=== PATIENT | female | born 1965 | race Caucasian/White ===

== ENCOUNTER → 2017-12-15 09:34 | Outpatient (POV) | payer BC, SELFPAY ==
[2017-12-15 09:42] VITALS: BP 127/69; PULSE 79; RESP 20; O2SAT 99; BMI 43.0
--- NOTE | 2017-12-15 10:02 | HMH.PAINSOAP ---
[facility] Pain Management SOAP Note Subjective:: This patient is a pleasant 52-year-old female who presents today for medication refills. Patient is currently on Lyrica 150 mg twice daily. She states the medication helps her 40%. Patient has overall pain secondary to fibromyalgia. She has extreme point tenderness in her neck and bilateral shoulders. Patient states the medication does help her with her activities of daily living. Patient denies any side effects to the medication. Patient does have kidney problems however she is being monitored closely by a physician and currently has no restrictions. Patient's Marcello #[id number] reviewed and appropriate. ROS General: no recent weight change, no fever, no sleep disturbances Respiratory: no cough, no shortness of air, no recurring pulmonary infections Cardiovascular/Peripheral Vascular: No chest pain, No palpitations, no edema, no shortness of breath. Gastrointestinal: no incontinence, normal bowel movements reported Genitourinary: no incontinence Musculoskeletal: Myofascial pain generalized Psychiatric: normal mood/ affect, Neurological: [denies weakness in extremities], [denies balance issues] Objective:: Physical Exam General: Alert and oriented x3, no acute distress, pleasant and cooperative, [on room air] Lungs: Resps E/U, Symmetrical chest expansion, Eyes: PERRL Musculoskeletal: Flexion and extension of cervical spine somewhat guarded secondary to pain, deep tendon reflexes normal, strength in upper and lower extremities [5/5], normal gait noted, point tenderness over cervical paraspinous and bilateral trapezius muscles Neurological: speech clear, photo finish photographer equal, no gross sensory deficits Assessment:: Degenerative disc disease of cervical spine, cervical radiculopathy, fibromyalgia Plan:: Since the patient is doing so well on her Lyrica regimen we will increase her Lyrica to 150 mg 1 p.o. 3 times daily. I believe that this will be very effective in treating the rest of her pain. Patient is getting some relief 40% from her medication currently. Patient is not having any side effects. We will follow-up with her in 3 months she has been instructed to call the office if there are any changes in her current condition. Patient's Marcello has been reviewed and appropriate. This note was dictated using voice recognition software may contain errors or omissions
--- NOTE | 2017-12-15 10:05 | P.CONS_ITS ---
[facility] Pain Management SOAP Note Subjective:: This patient is a pleasant 52-year-old female who presents today for medication refills. Patient is currently on Lyrica 150 mg twice daily. She states the medication helps her 40%. Patient has overall pain secondary to fibromyalgia. She has extreme point tenderness in her neck and bilateral shoulders. Patient states the medication does help her with her activities of daily living. Patient denies any side effects to the medication. Patient does have kidney problems however she is being monitored closely by a physician and currently has no restrictions. Patient's Marcello #[id number] reviewed and appropriate. ROS General: no recent weight change, no fever, no sleep disturbances Respiratory: no cough, no shortness of air, no recurring pulmonary infections Cardiovascular/Peripheral Vascular: No chest pain, No palpitations, no edema, no shortness of breath. Gastrointestinal: no incontinence, normal bowel movements reported Genitourinary: no incontinence Musculoskeletal: Myofascial pain generalized Psychiatric: normal mood/ affect, Neurological: [denies weakness in extremities], [denies balance issues] Objective:: Physical Exam General: Alert and oriented x3, no acute distress, pleasant and cooperative, [ on room air] Lungs: Resps E/U, Symmetrical chest expansion, Eyes: PERRL Musculoskeletal: Flexion and extension of cervical spine somewhat guarded secondary to pain, deep tendon reflexes normal, strength in upper and lower extremities [5/5], normal gait noted, point tenderness over cervical paraspinous and bilateral trapezius muscles Neurological: speech clear, extractive metallurgist equal, no gross sensory deficits Assessment:: Degenerative disc disease of cervical spine, cervical radiculopathy, fibromyalgia Plan:: Since the patient is doing so well on her Lyrica regimen we will increase her Lyrica to 150 mg 1 p.o. 3 times daily. I believe that this will be very effective in treating the rest of her pain. Patient is getting some relief 40% from her medication currently. Patient is not having any side effects. We will follow-up with her in 3 months she has been instructed to call the office if there are any changes in her current condition. Patient's Marcello has been reviewed and appropriate. This note was dictated using voice recognition software may contain errors or omissions
--- NOTE | 2017-12-15 16:48 | PC.PHONENOTE ---
called in Rx for Lyrica 150mg TID with 2 refills to [facility] in [place]
== END ==
PROVIDERS: Family Provider Nurse Practitioner Family; PCP Nurse Practitioner Family; Visit Provider Clinical Nurse Specialist Family Health
DX: M79.7 Fibromyalgia (principal); M54.12 Radiculopathy, cervical region
CPT/HCPCS: 99212

== ENCOUNTER → 2018-03-16 08:55 | Outpatient (POV) | payer BC, SELFPAY ==
[2018-03-16 09:12] VITALS: BP 140/75; PULSE 72; RESP 18; O2SAT 98; BMI 40.7
--- NOTE | 2018-03-16 09:30 | HMH.PAINSOAP ---
[facility] Pain Management SOAP Note Subjective:: Patient is a pleasant 52-year-old white female who presents today for medication refills. Patient is currently on Lyrica 150 mg 1 p.o. 3 times daily. Patient states that decreases her pain 50-60%. Patient states that she is not having any side effects to the medication. Patient has overall pain secondary to fibromyalgia. Patient states the medication does help with her activities of daily living. Patient does have kidney function issues in the past however they are being monitored and she is currently doing well. Patient recently has started treatment for depression and anxiety. Patient has also been diagnosed with Sjogren's syndrome. I discussed with the patient that when she find somebody to treat this that they will need to provide notes to our office. ROS General: no recent weight change, no fever, no sleep disturbances Respiratory: no cough, no shortness of air, no recurring pulmonary infections Cardiovascular/Peripheral Vascular: No chest pain, No palpitations, no edema, no shortness of breath. Gastrointestinal: no incontinence, normal bowel movements reported Genitourinary: no incontinence Musculoskeletal: Myofascial pain Psychiatric: normal mood/ affect Neurological: [denies weakness in extremities], [denies balance issues] Objective:: Physical Exam General: Alert and oriented x3, no acute distress, pleasant and cooperative, [on room air] Lungs: Resps E/U, Symmetrical chest expansion, Eyes: PERRL Musculoskeletal: Flexion and extension of cervical spine somewhat guarded secondary to pain, deep tendon reflexes normal, strength in upper and lower extremities [5/5], normal gait noted, point tenderness over cervical paraspinous and bilateral trapezius muscles Neurological: speech clear, spinneret cleaner equal, no gross sensory deficits Assessment:: Degenerative disc disease of the cervical spine, cervical radiculopathy, fibromyalgia Plan:: We will refill the patient's Lyrica 150 mg 1 p.o. 3 times daily. Patient is going to get us notes from her treating physician for her Sjogren's diagnosis. I will follow-up with this patient in 3 months unless she needs us prior to this appointment. Dr. Mandujano has reviewed this chart and agrees with this plan of care. Patient's MARISA #[id number] reviewed and appropriate. This note was dictated using voice recognition software and may contain errors or omissions
--- NOTE | 2018-03-16 09:33 | P.CONS_ITS ---
[facility] Pain Management SOAP Note Subjective:: Patient is a pleasant 52-year-old white female who presents today for medication refills. Patient is currently on Lyrica 150 mg 1 p.o. 3 times daily. Patient states that decreases her pain 50-60%. Patient states that she is not having any side effects to the medication. Patient has overall pain secondary to fibromyalgia. Patient states the medication does help with her activities of daily living. Patient does have kidney function issues in the past however they are being monitored and she is currently doing well. Patient recently has started treatment for depression and anxiety. Patient has also been diagnosed with Sjogren's syndrome. I discussed with the patient that when she find somebody to treat this that they will need to provide notes to our office. ROS General: no recent weight change, no fever, no sleep disturbances Respiratory: no cough, no shortness of air, no recurring pulmonary infections Cardiovascular/Peripheral Vascular: No chest pain, No palpitations, no edema, no shortness of breath. Gastrointestinal: no incontinence, normal bowel movements reported Genitourinary: no incontinence Musculoskeletal: Myofascial pain Psychiatric: normal mood/ affect Neurological: [denies weakness in extremities], [denies balance issues] Objective:: Physical Exam General: Alert and oriented x3, no acute distress, pleasant and cooperative, [ on room air] Lungs: Resps E/U, Symmetrical chest expansion, Eyes: PERRL Musculoskeletal: Flexion and extension of cervical spine somewhat guarded secondary to pain, deep tendon reflexes normal, strength in upper and lower extremities [5/5], normal gait noted, point tenderness over cervical paraspinous and bilateral trapezius muscles Neurological: speech clear, resaw machine operator equal, no gross sensory deficits Assessment:: Degenerative disc disease of the cervical spine, cervical radiculopathy, fibromyalgia Plan:: We will refill the patient's Lyrica 150 mg 1 p.o. 3 times daily. Patient is going to get us notes from her treating physician for her Sjogren's diagnosis. I will follow-up with this patient in 3 months unless she needs us prior to this appointment. Dr. Mandujano has reviewed this chart and agrees with this plan of care. Patient's MARISA #[id number] reviewed and appropriate. This note was dictated using voice recognition software and may contain errors or omissions
== END ==
PROVIDERS: Family Provider Nurse Practitioner Family; PCP Nurse Practitioner Family; Visit Provider Clinical Nurse Specialist Family Health
DX: M54.12 Radiculopathy, cervical region (principal); M79.7 Fibromyalgia
CPT/HCPCS: 99212

== ENCOUNTER → 2018-10-27 11:11 | Outpatient (POV) | payer BC, SELFPAY ==
[2018-10-27 12:17] VITALS: BP 118/48; PULSE 71; RESP 18; O2SAT 98; BMI 42.5
--- NOTE | 2018-10-27 12:32 | HMH.PAINSOAP ---
[facility] Pain Management SOAP Note Subjective:: Patient is a pleasant 53-year-old white female who presents today for medication refills. Patient currently on Lyrica 150 mg 1 p.o. 3 times daily. She states that this decreases her pain up to 60%. Patient's MARISA reviewed and appropriate patient is continuing with her physician treating her Sjogren's syndrome. Patient denies side effects from medication. Patient rates her pain a 6 out of 10 today. ROS General: no recent weight change, no fever, no sleep disturbances Respiratory: no cough, no shortness of air, no recurring pulmonary infections Cardiovascular/Peripheral Vascular: No chest pain, No palpitations, no edema, no shortness of breath. Gastrointestinal: no incontinence, normal bowel movements reported Genitourinary: no incontinence Musculoskeletal: Myofascial pain Psychiatric: normal mood/ affect, [denies depression], [denies anxiety] Neurological: [denies weakness in extremities], [denies balance issues] Objective:: Physical Exam General: Alert and oriented x3, no acute distress, pleasant and cooperative, [on room air] Lungs: Resps E/U, Symmetrical chest expansion, Eyes: PERRL Musculoskeletal: Flexion and extension of cervical spine somewhat guarded secondary to pain, deep tendon reflexes normal, strength in upper and lower extremities [5/5], normal gait noted, point tenderness over cervical paraspinous and bilateral trapezius muscles Neurological: speech clear, carbon capture power plant manager equal, no gross sensory deficits Assessment:: Myofascial pain syndrome Plan:: We will refill the patient's Lyrica 150 mg 1 p.o. 3 times daily. We will see the patient back in 3 or 4 months and reassess her symptoms as needed. Patient has been instructed to call the office if she has any issues prior to her next appointment. Dr. Mandujano has reviewed this note and agrees with this plan of care. This note was dictated using voice recognition software and may contain errors or omissions
--- NOTE | 2018-10-27 12:37 | P.CONS_ITS ---
[facility] Pain Management SOAP Note Subjective:: Patient is a pleasant 53-year-old white female who presents today for medication refills. Patient currently on Lyrica 150 mg 1 p.o. 3 times daily. She states that this decreases her pain up to 60%. Patient's MARISA reviewed and appropriate patient is continuing with her physician treating her Sjogren's syndrome. Patient denies side effects from medication. Patient rates her pain a 6 out of 10 today. ROS General: no recent weight change, no fever, no sleep disturbances Respiratory: no cough, no shortness of air, no recurring pulmonary infections Cardiovascular/Peripheral Vascular: No chest pain, No palpitations, no edema, no shortness of breath. Gastrointestinal: no incontinence, normal bowel movements reported Genitourinary: no incontinence Musculoskeletal: Myofascial pain Psychiatric: normal mood/ affect, [denies depression], [denies anxiety] Neurological: [denies weakness in extremities], [denies balance issues] Objective:: Physical Exam General: Alert and oriented x3, no acute distress, pleasant and cooperative, [on room air] Lungs: Resps E/U, Symmetrical chest expansion, Eyes: PERRL Musculoskeletal: Flexion and extension of cervical spine somewhat guarded secondary to pain, deep tendon reflexes normal, strength in upper and lower extremities [5/5], normal gait noted, point tenderness over cervical paraspinous and bilateral trapezius muscles Neurological: speech clear, cosmetic account coordinator equal, no gross sensory deficits Assessment:: Myofascial pain syndrome Plan:: We will refill the patient's Lyrica 150 mg 1 p.o. 3 times daily. We will see the patient back in 3 or 4 months and reassess her symptoms as needed. Patient has been instructed to call the office if she has any issues prior to her next appointment. Dr. Mandujano has reviewed this note and agrees with this plan of care. This note was dictated using voice recognition software and may contain errors or omissions
== END ==
PROVIDERS: PCP Nurse Practitioner Family; Visit Provider Clinical Nurse Specialist Family Health
DX: M79.18 Myalgia, other site (principal)
CPT/HCPCS: 99213

== ENCOUNTER → 2018-12-24 08:09 | Outpatient (POV) | payer BC, SELFPAY | PROVIDERS: Visit Provider Dentist | DX: Z00.00 Encounter for general adult medical examination without abnormal findings (principal) ==

== ENCOUNTER → 2019-02-22 09:16 | Outpatient (POV) | payer BC, SELFPAY ==
[2019-02-22 09:35] VITALS: BP 148/71; PULSE 71; RESP 18; O2SAT 98; BMI 42.5
--- NOTE | 2019-02-22 09:38 | P.CONS_ITS ---
[facility] Pain Management SOAP Note Subjective:: Patient is a pleasant 53-year-old white female who presents today for medication refills. She is currently on Lyrica 150 mg 1 p.o. 3 times daily. She denies side effects for this. She does well on this rating her pain today a 4 out of 10. She states it helps up to 70%. [facility] #[id number] reviewed and appropriate. Patient would like to continue to follow-up every couple months. ROS General: no recent weight change, no fever, no sleep disturbances Respiratory: no cough, no shortness of air, no recurring pulmonary infections Cardiovascular/Peripheral Vascular: No chest pain, No palpitations, no edema, no shortness of breath. Gastrointestinal: no incontinence, normal bowel movements reported Genitourinary: no incontinence Musculoskeletal: Myofascial pain Psychiatric: normal mood/ affect Neurological: [denies weakness in extremities], [denies balance issues] Objective:: Physical Exam General: Alert and oriented x3, no acute distress, pleasant and cooperative, [on room air] Lungs: Resps E/U, Symmetrical chest expansion, Eyes: PERRL Musculoskeletal: Flexion and extension of cervical spine somewhat guarded secondary to pain, deep tendon reflexes normal, strength in upper and lower extremities [5/5], normal gait noted, point tenderness over cervical paraspinous and bilateral trapezius muscles Neurological: speech clear, centrifugal casting machine tender equal, no gross sensory deficits Assessment:: Myofascial pain syndrome, fibromyalgia Plan:: We will refill the patient's Lyrica 150 mg 1 p.o. 3 times daily we will see the patient back in 3 months reassess her symptoms as needed she is been instructed to call the office if she has any issues prior to her next appointment. Dr. Mandujano has reviewed this note and agrees with this plan of care. This note was dictated using voice recognition software and may contain errors or omissions
== END ==
PROVIDERS: PCP Nurse Practitioner Family; Visit Provider Clinical Nurse Specialist Family Health
DX: M79.18 Myalgia, other site (principal); M79.7 Fibromyalgia
CPT/HCPCS: 99212

== ENCOUNTER 2021-03-07 15:00 | Outpatient (RCR) | payer MEDICARE, OTHER, SELFPAY | END 2021-04-02 16:00 | disposition home or self-care (01) | LOC: PT.CARL 15:00 | PROVIDERS: PCP Nurse Practitioner Family; Visit Provider Physician Assistant | DX: M47.812 Spondylosis without myelopathy or radiculopathy, cervical region; M54.12 Radiculopathy, cervical region | CPT/HCPCS: 97012; 97110; 97140; 97163 ==

== ENCOUNTER → 2022-08-13 08:30 | Outpatient (CLI) | payer MEDICARE, SELFPAY ==
--- NOTE | 2022-08-13 08:45 | ECG_ITS ---
APPROVED REPORT Exam: Resting ECG HR:65 bpm ECG Measurements Heart Rate 65 AXES FL 127 P 42 QRSd 90 QRS 87 QT 390 T 76 QTc 402 Conclusion SINUS RHYTHM LOW QRS VOLTAGE IN PRECORDIAL LEADS [QRS DEFLECTION < 1.0 mV IN CHEST LEADS] BORDERLINE ECG UNCONFIRMED REPORT Electronically signed by : Jesus Tello MD 08/13/2022 21:10:15
--- NOTE | 2022-08-13 09:18 | XR_ITS ---
FINAL REPORT CLINICAL HISTORY: OBESITY, pre op , high blood pressure, non smoker FINDINGS: Two views of the chest were obtained. The heart size and pulmonary vascularity are within normal limits. The mediastinum is normal. No acute pulmonary abnormality is identified. There is no pneumothorax. The bony thorax is intact. There are [id number] degenerative changes of the thoracic spine IMPRESSION: No active cardiopulmonary disease. Reviewed, Interpreted and Dictated by Pantera Ortiz III, MD Transcribed by Felicitas Weinberg Authenticated and [facility]
[2022-08-13 09:30] LABS: Basophils % 0.5 % (0.1-2.0); Eosinophils # 0.2 K/mm3 (0.0-0.4); Eosinophils % 2.7 % (0.1-12.0); Hematocrit 40.5 % (37.0-47.0); Hemoglobin 13.5 g/dL (12.2-16.2); Lymphocytes # 1.3 K/mm3 (0.7-4.5); Lymphocytes % 23.1 % (10-50); Mean Corpuscular HGB Conc 33.4 g/dL (31.8-35.4); Mean Corpuscular Hemoglobin 34.7 pg (27.0-31.2); Mean Corpuscular Volume 103.9 fl (81-99); Monocytes # 0.4 K/mm3 (0.1-1.0); Monocytes % 6.3 % (1.7-9.3); Neutrophils # 3.8 K/mm3 (1.8-7.8); Neutrophils % 67.4 % (37.0-80.0); Platelet Count 311 K/mm3 (142-424); White Blood Count 5.7 K/mm3 (4.8-10.8)
[2022-08-13 09:58] LABS: Alanine Aminotransferase 52 U/L (12-78); Albumin Level 4.2 g/dl (3.5-5.0); Albumin/Globulin Ratio 1.6 (1.1-1.8); Alkaline Phosphatase 112 U/L (38-126); Anion Gap 15.2 mEq/L (5-15); Aspartate Amino Transferase 45 U/L (14-36); Bilirubin,Total 0.7 mg/dl (0.2-1.3); Blood Urea Nitrogen 15 mg/dl (7-17); Calcium 8.8 mg/dl (8.4-10.2); Carbon Dioxide 29 mmol/L (22.0-30.0); Chloride 100 mmol/L (98-107); Cholesterol 130 mg/dl (140-200); Estimated Glomerular Filt Rate 64 ml/min (>60); GFR (African American) 78 ML/MIN (>60); Globulin 2.6 g/dL (1.3-3.2); Glucose 131 mg/dl (74-100); HDL Cholesterol 64 mg/dl (40-60); Potassium 4.2 mmoL/L (3.5-5.1); Sodium 140 mmol/L (136-145); Total Protein,Serum 6.8 g/dl (6.3-8.2); Triglycerides 93 mg/dl (30-150); VLDL Cholesterol 19 mg/dL (0-40)
[2022-08-13 10:08] LABS: Total Iron Binding Capacity 288 ug/dL (265-497)
[2022-08-13 10:13] LABS: Intact Parathyroid Hormone 64.5 pg/mL (7.5-53.5)
[2022-08-13 10:15] LABS: Direct LDL Cholesterol 50.71 mg/dL (100-129)
[2022-08-13 10:23] LABS: 25-OH Vitamin D, Total 63.9 ng/mL (30-100)
[2022-08-13 10:31] LABS: Thyroid Stimulating Hormone 1.26 uIU/mL (0.465-4.68)
[2022-08-13 11:19] LABS: Hemoglobin A1C 6.1 % (4.0-6.0)
[2022-08-13 11:20] LABS: Folate 4.27 ng/mL
[2022-08-13 11:32] LABS: Iron 93 ug/dL (37-170)
[2022-08-13 12:08] LABS: Ferritin 37.6 ng/ml (11.1-264)
[2022-08-15 11:21] LABS: H. pylori Stool Ag, EIA Negative (Negative)
[2022-08-16 23:08] LABS: Vitamin B1 152.1 nmol/L (66.5-200.0)
[2022-08-18 23:07] LABS: Methylmalonic Acid 468 nmol/L (0-378)
[2022-08-21 16:13] LABS: Vitamin E Alpha Tocopherol 7.1 mg/L (7.0-25.1); Vitamin E Gamma Tocopherol 1.6 mg/L (0.5-5.5)
[2022-08-23 12:38] LABS: Vitamin A 41.7 ug/dL (20.1-62.0)
== END ==
PROVIDERS: PCP Family Medicine; Visit Provider Physician Assistant
DX: E66.9 Obesity, unspecified (principal); E11.9 Type 2 diabetes mellitus without complications; Z79.84 Long term (current) use of oral hypoglycemic drugs; Z68.42 Body mass index [BMI] 45.0-49.9, adult
CPT/HCPCS: 36415; 71046; 80053; 80061; 82131; 82306; 82728; 82746; 83036; 83540; 83550; 83970; 84425; 84443; 84446; 84590; 85025; 87338; 93005

== ENCOUNTER → 2022-08-28 10:15 | Outpatient (CLI) | payer MEDICARE, SELFPAY ==
[2022-08-28 19:44] LABS: Calcium 9.3 mg/dl (8.4-10.2)
[2022-08-28 19:57] LABS: Intact Parathyroid Hormone 86.3 pg/mL (7.5-53.5)
[2022-08-30 18:09] LABS: Calcium, Ionized 5.4 mg/dL (4.5-5.6)
== END ==
PROVIDERS: PCP Family Medicine; Visit Provider Family Medicine
DX: E34.9 Endocrine disorder, unspecified (principal)
CPT/HCPCS: 82310; 82330; 83970

== ENCOUNTER → 2022-11-22 10:12 | Outpatient (CLI) | payer MEDICARE, SELFPAY ==
[2022-11-22 11:33] LABS: Basophils % 0.1 % (0.1-2.0); Eosinophils # 0.2 K/mm3 (0.0-0.4); Eosinophils % 5.5 % (0.1-12.0); Hematocrit 40.8 % (37.0-47.0); Hemoglobin 13.7 g/dL (12.2-16.2); Lymphocytes % 23.8 % (10-50); Mean Corpuscular HGB Conc 33.6 g/dL (31.8-35.4); Mean Corpuscular Hemoglobin 35.1 pg (27.0-31.2); Mean Corpuscular Volume 104.3 fl (81-99); Monocytes # 0.3 K/mm3 (0.1-1.0); Monocytes % 7.5 % (1.7-9.3); Neutrophils # 2.5 K/mm3 (1.8-7.8); Neutrophils % 63.1 % (37.0-80.0); Platelet Count 220 K/mm3 (142-424); Red Blood Count 3.91 M/mm3 (4.20-5.40); Red Cell Distribution Width 13.8 % (11.5-17.5)
[2022-11-22 12:17] LABS: 25-OH Vitamin D, Total 79.1 ng/mL (30-100)
[2022-11-22 12:25] LABS: Alanine Aminotransferase 38 U/L (12-78); Albumin Level 3.7 g/dl (3.5-5.0); Albumin/Globulin Ratio 1.3 (1.1-1.8); Alkaline Phosphatase 114 U/L (38-126); Anion Gap 9.4 mEq/L (5-15); Aspartate Amino Transferase 56 U/L (14-36); Bilirubin,Total 0.7 mg/dl (0.2-1.3); Blood Urea Nitrogen 13 mg/dl (7-17); Calcium 8.6 mg/dl (8.4-10.2); Carbon Dioxide 29 mmol/L (22.0-30.0); Chloride 107 mmol/L (98-107); Chol/HDL Ratio 1.8 (1-3.5); Cholesterol 79 mg/dl (140-200); Estimated Glomerular Filt Rate 57 ml/min (>60); GFR (African American) 69 ML/MIN (>60); Globulin 2.9 g/dL (1.3-3.2); Glucose 101 mg/dl (74-100); HDL Cholesterol 44 mg/dl (40-60); Potassium 3.4 mmoL/L (3.5-5.1); Sodium 142 mmol/L (136-145); Total Protein,Serum 6.6 g/dl (6.3-8.2); Triglycerides 75 mg/dl (30-150); VLDL Cholesterol 15 mg/dL (0-40)
[2022-11-22 12:36] LABS: Total Iron Binding Capacity 274 ug/dL (265-497)
[2022-11-22 12:38] LABS: Hemoglobin A1C 5.3 % (4.0-6.0)
[2022-11-22 13:07] LABS: Direct LDL Cholesterol < 30.00 mg/dL (100-129)
[2022-11-22 13:33] LABS: Folate 5.07 ng/mL
[2022-11-22 17:41] LABS: Iron 69 ug/dL (37-170)
[2022-11-25 02:14] LABS: Vitamin B1 124.9 nmol/L (66.5-200.0)
[2022-11-27 23:40] LABS: Vitamin E Alpha Tocopherol 5.2 mg/L (7.0-25.1); Vitamin E Gamma Tocopherol 1.1 mg/L (0.5-5.5)
[2022-11-28 06:08] LABS: Methylmalonic Acid 337 nmol/L (0-378)
[2022-11-30 08:38] LABS: Vitamin A 20.7 ug/dL (20.1-62.0)
== END ==
PROVIDERS: PCP Family Medicine; Visit Provider Nurse Practitioner Family
DX: Z90.3 Acquired absence of stomach [part of] (principal); E66.01 Morbid (severe) obesity due to excess calories; E11.9 Type 2 diabetes mellitus without complications; Z68.41 Body mass index [BMI] 40.0-44.9, adult
CPT/HCPCS: 36415; 80053; 80061; 82131; 82306; 82728; 82746; 83036; 83540; 83550; 84425; 84446; 84590; 85025

== ENCOUNTER 2023-01-14 12:15 | Emergency (ER) | payer MEDICARE, SELFPAY ==
[2023-01-14 12:15] VITALS: BP 129/75; PULSE 64; RESP 16; TEMP 36.7; O2SAT 96; BMI 39.6
--- NOTE | 2023-01-14 12:34 | PC.NURSE ---
JOSHUA JANG at
--- NOTE | 2023-01-14 12:35 | CT_ITS ---
FINAL REPORT TECHNIQUE: Postcontrast axial images through the abdomen and pelvis were performed. This study was performed with techniques to keep radiation doses as low as reasonably achievable, (ALARA). Individualized dose reduction techniques using automated exposure control or adjustment of mA and/or kV according to the patient's size were employed. CLINICAL HISTORY: abdominal pain FINDINGS: Abdomen: The lung bases are clear. There is postoperative change from prior gastric sleeve. There is moderate fatty infiltration of the liver. The gallbladder is absent. The spleen is unremarkable. The adrenals are normal. The pancreas is unremarkable. The kidneys enhance appropriately. The aorta is normal in caliber. No free fluid or adenopathy is identified. No findings for mechanical bowel obstruction are identified. Pelvis: The appendix is normal. The urinary bladder is unremarkable. There is a small amount of pelvic free fluid demonstrating 8 Hounsfield units of mean attenuation value. This is greater than expected for a female patient of this age. IMPRESSION: Small amount on a pelvic free fluid of unclear etiology. No evidence of appendicitis. Prior gastric sleeve. Reviewed, Interpreted and Dictated by Ezekiel Valdez MD Transcribed by Justo Chris Authenticated and [facility]
--- NOTE | 2023-01-14 12:38 | HMH.EDGENADL ---
Discharge Plan Disposition Patient Disposition: Home, Self-Care Condition: Good Chief Complaint: Abdominal Pain Prescriptions Prescriptions: No Action cholecalciferol (vitamin D3) [Vitamin D3] 125 mcg (5,000 unit) tablet 125 mcg PO DAILY levothyroxine 100 mcg tablet 100 mcg PO DAILY 90 Days Qty: 90 0RF rosuvastatin 10 mg tablet 10 mg PO DAILY Label Comments: TAKE 1 TABLET BY MOUTH ONCE DAILY carvedilol 3.125 mg tablet 3.125 mg PO BID lisinopril 40 mg tablet 40 mg PO DAILY Rx Instructions: Take 1 tablet by mouth once daily fluoxetine 10 mg tablet 10 mg PO DAILY Label Comments: TAKE 1 TABLET BY MOUTH ONCE DAILY duloxetine 60 mg capsule,delayed release(DR/EC) 60 mg PO DAILY Label Comments: TAKE 1 CAPSULE BY MOUTH ONCE DAILY FOR DEPRESSION Referrals Follow up/Referrals: Temo Fox MD [Primary Care Provider] - See instructions Clinical Impressions Clinical Impression: Abdominal pain, Free fluid in pelvis Instructions Patient Instructions: DI for Acute Abdominal Pain Print Language Print Language: Liberian Discharge ED Provider: Raul Ramon General Adult HPI General Chief complaint: Abdominal Pain Stated complaint: ab. pain vomiting Time Seen by Provider: 01/14/23 12:39 Mode of Arrival: Ambulatory Source of Information: Patient Limitations: No Limitations Description of Symptoms (Recalled from ER Triage Doc. by RN): Pt reports L sided pain that radiates into her back, pt reports has been having pain for approx 6 weeks. Pt reports vomiting episodes daily. Pt reports is post SACHA-S surgery (weight loss surgery) in october. States is scheduled to see her bariatric doctor January 20. Pt reports weight prior to surgery was 287, is now 224 lb History of Present Illness HPI narrative: Patient presents to the emergency department abdominal pain, nausea, vomiting. She states that she had weight loss surgery with Dr. Snyder in [place] in October. She comes in with multiple episodes of vomiting today. She states that she has had poor p.o. intake. She has had decreased urine output. Denies any dysuria. Denies any significant diarrhea or constipation. Related Data Home Medications Medication Instructions Recorded Confirmed cholecalciferol (vitamin D3) 125 125 mcg PO DAILY Supplement 06/14/22 01/14/23 mcg (5,000 unit) tablet (Vitamin D3) carvedilol 3.125 mg tablet 3.125 mg PO BID High blood pressure 01/14/23 01/14/23 duloxetine 60 mg capsule,delayed 60 mg PO DAILY Mood 01/14/23 01/14/23 release fluoxetine 10 mg tablet 10 mg PO DAILY Mood 01/14/23 01/14/23 lisinopril 40 mg tablet 40 mg PO DAILY High blood pressure 01/14/23 01/14/23 rosuvastatin 10 mg tablet 10 mg PO DAILY Cholesterol 01/14/23 01/14/23 Previous Rx's Medication Instructions Recorded levothyroxine 100 mcg tablet 100 mcg PO DAILY thyroid 90 days 10/30/22 #90 tabs Allergies Allergy/AdvReac Type Severity Reaction Status Date / Time hydrocodone [From LORTAB] Allergy Unknown FAINTING Verified 12/05/22 10:42 latex [LATEX] Allergy Unknown I-HIVES Verified 12/05/22 10:42 PFSH PFS Disclaimer: The information contained in this section may have been updated after the patient was seen, as this information can be updated by other users. Medical History Anxiety Arthritis Depression Diabetes mellitus Fatty liver Fibromyalgia History of blood clots Hyperlipidemia Hypertension Hypothyroidism Sjogrens syndrome Surgical History H/O oophorectomy H/O tubal ligation History of bariatric surgery History of cholecystectomy Family History Mother Cancer Father Coronary artery disease Sister Diabetes Social History Smoking Status
[2023-01-14 12:55] LABS: Basophils # 0.1 K/mm3 (0-0.2); Basophils % 2.8 % (0.1-2.0); Eosinophils # 0.2 K/mm3 (0.0-0.4); Eosinophils % 5.2 % (0.1-12.0); Hematocrit 41.8 % (37.0-47.0); Hemoglobin 13.7 g/dL (12.2-16.2); Lymphocytes # 0.9 K/mm3 (0.7-4.5); Mean Corpuscular HGB Conc 32.7 g/dL (31.8-35.4); Mean Corpuscular Hemoglobin 33.9 pg (27.0-31.2); Mean Corpuscular Volume 103.8 fl (81-99); Mean Platelet Volume 9.3 fl (7.4-10.4); Monocytes # 0.2 K/mm3 (0.1-1.0); Monocytes % 6.5 % (1.7-9.3); Neutrophils # 2.1 K/mm3 (1.8-7.8); Neutrophils % 59.5 % (37.0-80.0); Platelet Count 258 K/mm3 (142-424); Red Blood Count 4.03 M/mm3 (4.20-5.40); Red Cell Distribution Width 13.6 % (11.5-17.5); White Blood Count 3.6 K/mm3 (4.8-10.8)
[2023-01-14 12:59] LABS: Chloride 104 mmol/L (98-107); Potassium 3.1 mmoL/L (3.5-5.1); Sodium 138 mmol/L (136-145)
[2023-01-14 13:00] LABS: Microscopic, Urine URINE MICROSCOPIC (MICROSCOPIC)
[2023-01-14 13:02] LABS: Alanine Aminotransferase 29 U/L (12-78); Alkaline Phosphatase 114 U/L (38-126); Anion Gap 6.1 mEq/L (5-15); Aspartate Amino Transferase 52 U/L (14-36); Bilirubin,Total 0.9 mg/dl (0.2-1.3); Blood Urea Nitrogen 8 mg/dl (7-17); Calcium 8.3 mg/dl (8.4-10.2); Carbon Dioxide 31 mmol/L (22.0-30.0); Creatinine Clearance Estimated 139 mL/min (50-200); Estimated Glomerular Filt Rate 86 ml/min (>60); GFR (African American) 104 ML/MIN (>60); Glucose 96 mg/dl (74-100); Lactic Acid 1.1 mmol/L (0.7-2.1); Lipase 32 U/L (23-300)
[2023-01-14 13:03] LABS: Albumin Level 3.2 g/dl (3.5-5.0); Albumin/Globulin Ratio 1.1 (1.1-1.8); Globulin 2.8 g/dL (1.3-3.2)
[2023-01-14 13:03] LABS: Appearance,Urine CLOUDY (Clear); Blood, Urine Negative (Negative); Color,Urine DK YELLOW (Yellow); Glucose,Urine (UA) Negative (Negative); Ketones,Urine Negative (Negative); Leukocyte Esterase,Urine Negative (Negative); Nitrate,Urine Negative (Negative); Protein,Urine 1+ (Negative); Specific Gravity, Urine >= 1.030 (1.005-1.030)
[2023-01-14 13:07] LABS: Bilirubin,Urine 2+ (Negative)
[2023-01-14 13:10] LABS: Bacteria,Urine Trace /lpf; Calcium Oxalate Crystals,Urine 2+ /lpf; WBC,Urine Occasional #/hpf (0-3)
--- NOTE | 2023-01-14 15:12 | PC.NURSE ---
checked on pt at this time, pt has just returned from CT scan. Explained to pt and delay r/t multiple critical pts that were having to get ct scans which caused a delay in her ct scan getting done. Pt reports she understood. Ensured that pt call light is in reach of pt, pt states no needs at this time.
[2023-01-14 16:30] VITALS: BP 119/63; PULSE 80; RESP 17; TEMP 36.6; O2SAT 97
== END 2023-01-14 16:32 | disposition home or self-care (01) ==
PROVIDERS: Emergency Provider Emergency Medicine; PCP Family Medicine
DX: R10.9 Unspecified abdominal pain (principal); R11.2 Nausea with vomiting, unspecified; E87.6 Hypokalemia
CPT/HCPCS: 74177; 80053; 81001; 83605; 83690; 85025; 96360; 96374; 96375; 99285; J2405; Q9967

== ENCOUNTER → 2023-01-30 18:31 | Outpatient (CLI) | payer MEDICARE, SELFPAY ==
[2023-01-30 19:33] LABS: Basophils % 0.3 % (0.1-2.0); Eosinophils # 0.2 K/mm3 (0.0-0.4); Eosinophils % 3.5 % (0.1-12.0); Hematocrit 43.3 % (37.0-47.0); Hemoglobin 13.8 g/dL (12.2-16.2); Lymphocytes # 1.4 K/mm3 (0.7-4.5); Lymphocytes % 31.5 % (10-50); Mean Corpuscular HGB Conc 31.9 g/dL (31.8-35.4); Mean Corpuscular Hemoglobin 33.6 pg (27.0-31.2); Mean Corpuscular Volume 105.1 fl (81-99); Mean Platelet Volume 9.9 fl (7.4-10.4); Monocytes # 0.3 K/mm3 (0.1-1.0); Neutrophils # 2.5 K/mm3 (1.8-7.8); Neutrophils % 58.8 % (37.0-80.0); Platelet Count 305 K/mm3 (142-424); Red Blood Count 4.12 M/mm3 (4.20-5.40); Red Cell Distribution Width 13.8 % (11.5-17.5); White Blood Count 4.3 K/mm3 (4.8-10.8)
[2023-01-30 20:03] LABS: 25-OH Vitamin D, Total 63.7 ng/mL (30-100)
[2023-01-30 20:23] LABS: Alanine Aminotransferase 28 U/L (12-78); Albumin Level 2.9 g/dl (3.5-5.0); Alkaline Phosphatase 141 U/L (38-126); Anion Gap 12.4 mEq/L (5-15); Aspartate Amino Transferase 62 U/L (14-36); Blood Urea Nitrogen 8 mg/dl (7-17); Calcium 8.3 mg/dl (8.4-10.2); Carbon Dioxide 30 mmol/L (22.0-30.0); Chloride 105 mmol/L (98-107); Chol/HDL Ratio 2.5 (1-3.5); Cholesterol 78 mg/dl (140-200); Estimated Glomerular Filt Rate 73 ml/min (>60); GFR (African American) 89 ML/MIN (>60); Globulin 2.9 g/dL (1.3-3.2); Glucose 84 mg/dl (74-100); HDL Cholesterol 31 mg/dl (40-60); Potassium 3.4 mmoL/L (3.5-5.1); Sodium 144 mmol/L (136-145); Total Protein,Serum 5.8 g/dl (6.3-8.2); Triglycerides 89 mg/dl (30-150); VLDL Cholesterol 18 mg/dL (0-40)
[2023-01-30 20:28] LABS: Total Iron Binding Capacity 181 ug/dL (265-497)
[2023-01-30 20:34] LABS: Direct LDL Cholesterol 33.74 mg/dL (100-129)
[2023-01-30 21:36] LABS: Iron 88 ug/dL (37-170)
[2023-02-04 17:14] LABS: Vitamin B1 94.9 nmol/L (66.5-200.0)
[2023-02-05 13:12] LABS: Methylmalonic Acid 234 nmol/L (0-378)
[2023-02-05 16:47] LABS: Vitamin E Alpha Tocopherol 4.5 mg/L (7.0-25.1); Vitamin E Gamma Tocopherol 0.8 mg/L (0.5-5.5)
[2023-02-06 18:09] LABS: Vitamin A 7.3 ug/dL (20.1-62.0)
== END ==
PROVIDERS: PCP Nurse Practitioner Family; Visit Provider Nurse Practitioner Family
DX: Z90.3 Acquired absence of stomach [part of] (principal); Z98.890 Other specified postprocedural states; Z79.899 Other long term (current) drug therapy; E66.9 Obesity, unspecified; Z68.38 Body mass index [BMI] 38.0-38.9, adult
CPT/HCPCS: 80053; 80061; 82131; 82306; 82728; 82746; 83036; 83540; 83550; 84425; 84446; 84590; 85025

== ENCOUNTER 2023-04-05 14:45 | Emergency (ER) | payer MEDICARE, SELFPAY ==
[2023-04-05 15:00] VITALS: BP 122/69; PULSE 88; RESP 18; TEMP 37.2; O2SAT 98; BMI 34.3
--- NOTE | 2023-04-05 15:24 | EXP.UTC ---
Discharge Plan Disposition Patient Disposition: Home, Self-Care Condition: Good Prescriptions Prescriptions: New azithromycin [azithromycin] 250 mg tablet 250 mg PO DIRECTED Qty: 6 0RF Rx Instructions: Take two (2) tablets on day #1, then one (1) tablet day #2 thru #5 prednisone [prednisone] 20 mg tablet 20 mg PO BID Qty: 10 0RF albuterol sulfate [ProAir HFA] 90 mcg/actuation HFA aerosol inhaler 1 inh inhalation Q6H PRN (Reason: shortness of breath or wheezing) 5 Days Qty: 6.7 0RF No Action omeprazole 40 mg capsule,delayed release(DR/EC) 40 mg PO BID Label Comments: TAKE 1 CAPSULE BY MOUTH TWICE DAILY carvedilol 3.125 mg tablet 3.125 mg PO BID lisinopril 40 mg tablet 40 mg PO DAILY Rx Instructions: Take 1 tablet by mouth once daily fluoxetine 10 mg tablet 10 mg PO DAILY Label Comments: TAKE 1 TABLET BY MOUTH ONCE DAILY duloxetine 60 mg capsule,delayed release(DR/EC) 60 mg PO DAILY Label Comments: TAKE 1 CAPSULE BY MOUTH ONCE DAILY FOR DEPRESSION levothyroxine 100 mcg tablet See Rx Instructions .ROUTE .COMPLEX Rx Instructions: TAKE 1 TABLET BY MOUTH ONCE DAILY FOR THYROID Referrals Follow up/Referrals: Temo Fox MD [Primary Care Provider] - See instructions Activity Restrictions/Add. Instructions Additional Instructions/Restrictions: Start antibiotic today. Be sure to complete entire prescription even if feeling better Tylenol and ibuprofen as needed for pain or fever Humidifier/vaporizer/hot steamy shower Follow-up with primary care . Follow-up immediately in the ER of the [facility] for new or worsening symptoms or no noticeable improvement over the next 48-72 hours. Stop smoking Inhaler every 4-6 hours as needed. Should help open airways improved cough, wheezing, shortness of breath Start steroids today. Helps with inflammation therefore coughing and wheezing. Follow directions on package. Clinical Impressions Clinical Impression: Bronchitis, Acute maxillary sinusitis Instructions Patient Instructions: DI for Sinusitis, Acute Bronchitis Discharge ED Provider: Latrell ([facility])Dominic [facility] [place] HPI General Stated complaint: Cough headache fever bodyaches Mode of Arrival: Ambulatory Source of Information: Patient Limitations: No Limitations Time Seen by Provider: 04/05/23 15:24 Description of Symptoms (Recalled from Triage Doc. by RN): cough, fever, sinus pressure HEENT Symptoms (Recalled from RN notes): Yes Resp Symptoms (Recalled from RN notes): No Skin Symptoms (Recalled from RN notes): No MS Symptoms (Recalled from RN notes): No Functional Status (Recalled from RN notes): n/a History of Present Illness Provider Complaint: 57 yr old female presents for cough,soa, dark thick green drainage,sinus pressure,facial pain, and sore throat for 1 week Related Data Home Medications Medication Instructions Recorded Confirmed carvedilol 3.125 mg tablet 3.125 mg PO BID High blood pressure 01/14/23 04/05/23 duloxetine 60 mg capsule,delayed 60 mg PO DAILY Mood 01/14/23 04/05/23 release fluoxetine 10 mg tablet 10 mg PO DAILY Mood 01/14/23 04/05/23 lisinopril 40 mg tablet 40 mg PO DAILY High blood pressure 01/14/23 04/05/23 omeprazole 40 mg capsule,delayed 40 mg PO BID gerd 01/30/23 04/05/23 release levothyroxine 100 mcg tablet See Rx Instructions .Route 04/05/23 04/05/23 .COMPLEX thyroid Previous Rx's Medication Instructions Recorded albuterol sulfate 90 mcg/actuation 1 inh inhalation Q6H PRN shortness 04/05/23 aerosol inhaler (ProAir HFA) of breath or wheezing 5 days #6.7 grams azithromycin 250 mg tablet 250 mg PO DIRECTED #6 tabs 04/05/23 prednisone 20 mg tablet 20 mg PO BID #10 tabs 04/05/23 Allergies Allergy/AdvReac Type Severity Reaction Status Date / Time hydrocodone [From LORTAB] Allergy Unknown FAINTING Verified 04/05/23 15:10 latex [LATEX] Allergy Unknown I-HIVES Verified 04/05
[2023-04-05 15:46] VITALS: BP 122/69; PULSE 88; RESP 18; TEMP 37.2; O2SAT 98
== END 2023-04-05 15:46 | disposition home or self-care (01) ==
PROVIDERS: Emergency Provider Nurse Practitioner Family; PCP Family Medicine
DX: J20.9 Acute bronchitis, unspecified (principal); J01.00 Acute maxillary sinusitis, unspecified; M35.00 Sjogren syndrome, unspecified; E11.9 Type 2 diabetes mellitus without complications; I10 Essential (primary) hypertension; E78.5 Hyperlipidemia, unspecified; E03.9 Hypothyroidism, unspecified; F41.9 Anxiety disorder, unspecified; F32.A Depression, unspecified
CPT/HCPCS: 99204; 99212; G0463

== ENCOUNTER 2023-04-27 13:01 | Emergency (ER) | payer MEDICARE, SELFPAY ==
[2023-04-27 13:01] VITALS: BP 132/70; PULSE 76; RESP 18; TEMP 37.1; O2SAT 96; BMI 33.0
--- NOTE | 2023-04-27 13:24 | EXP.UTC ---
Discharge Plan Disposition Patient Disposition: Home, Self-Care Condition: Good Prescriptions Prescriptions: New amoxicillin [amoxicillin] 875 mg tablet 875 mg PO Q12H Qty: 20 0RF methylprednisolone 4 mg Tablets,Dose Pack 4 mg PO DIRECTED Qty: 21 0RF ondansetron 4 mg Tablet,Disintegrating 4 mg PO Q8H PRN (Reason: Nausea) Qty: 12 0RF No Action omeprazole 40 mg capsule,delayed release(DR/EC) 40 mg PO BID Patient Comments: TAKE 1 CAPSULE BY MOUTH TWICE DAILY carvedilol 3.125 mg tablet 3.125 mg PO BID lisinopril 40 mg tablet 40 mg PO DAILY Rx Instructions: Take 1 tablet by mouth once daily fluoxetine 10 mg tablet 10 mg PO DAILY Patient Comments: TAKE 1 TABLET BY MOUTH ONCE DAILY duloxetine 60 mg capsule,delayed release(DR/EC) 60 mg PO DAILY Patient Comments: TAKE 1 CAPSULE BY MOUTH ONCE DAILY FOR DEPRESSION levothyroxine 100 mcg tablet See Rx Instructions .ROUTE .COMPLEX Rx Instructions: TAKE 1 TABLET BY MOUTH ONCE DAILY FOR THYROID azithromycin [azithromycin] 250 mg tablet 250 mg PO DIRECTED Qty: 6 0RF Rx Instructions: Take two (2) tablets on day #1, then one (1) tablet day #2 thru #5 prednisone [prednisone] 20 mg tablet 20 mg PO BID Qty: 10 0RF albuterol sulfate [ProAir HFA] 90 mcg/actuation HFA aerosol inhaler 1 inh inhalation Q6H PRN (Reason: shortness of breath or wheezing) 5 Days Qty: 6.7 0RF Referrals Follow up/Referrals: Temo Fox MD [Primary Care Provider] - See instructions Activity Restrictions/Add. Instructions Additional Instructions/Restrictions: Drink plenty of fluids. Take tylenol or ibuprofen for pain or fever. Take the medications as directed. Follow up with your regular doctor. GO TO THE ER FOR ANY WORSENING SYMPTOMS Throw your tooth brush away and get a new one. Clinical Impressions Clinical Impression: Strep throat Instructions Patient Instructions: DI for Strep Throat, Strep Throat Discharge ED Provider: Brian Arnold [facility] [place] HPI General Stated complaint: sore throat, bilateral ear pain Time Seen by Provider: 04/27/23 13:24 History of Present Illness Provider Complaint: She c/o sore throat and fever for the past 2 days. Related Data Home Medications Medication Instructions Recorded Confirmed carvedilol 3.125 mg tablet 3.125 mg PO BID High blood pressure 01/14/23 04/05/23 duloxetine 60 mg capsule,delayed 60 mg PO DAILY Mood 01/14/23 04/05/23 release fluoxetine 10 mg tablet 10 mg PO DAILY Mood 01/14/23 04/05/23 lisinopril 40 mg tablet 40 mg PO DAILY High blood pressure 01/14/23 04/05/23 omeprazole 40 mg capsule,delayed 40 mg PO BID gerd 01/30/23 04/05/23 release levothyroxine 100 mcg tablet See Rx Instructions .Route 04/05/23 04/05/23 .COMPLEX thyroid Previous Rx's Medication Instructions Recorded albuterol sulfate 90 mcg/actuation 1 inh inhalation Q6H PRN shortness 04/05/23 aerosol inhaler (ProAir HFA) of breath or wheezing 5 days #6.7 grams azithromycin 250 mg tablet 250 mg PO DIRECTED #6 tabs 04/05/23 prednisone 20 mg tablet 20 mg PO BID #10 tabs 04/05/23 amoxicillin 875 mg tablet 875 mg PO Q12H #20 tabs 04/27/23 methylprednisolone 4 mg tablets in 4 mg PO DIRECTED #21 tabs 04/27/23 a dose pack ondansetron 4 mg disintegrating 4 mg PO Q8H PRN Nausea #12 tabs 04/27/23 tablet Allergies Allergy/AdvReac Type Severity Reaction Status Date / Time hydrocodone [From LORTAB] Allergy Unknown FAINTING Verified 04/05/23 15:10 latex [LATEX] Allergy Unknown I-HIVES Verified 04/05/23 15:10 [facility] Disclaimer: The information contained in this section may have been updated after the patient was seen, as this information can be updated by other users. Medical History , [employer]) Anxiety Arthritis Depression Diabetes mellitus Fatty liver Fibromyalgia History
[2023-04-27 13:40] LABS: UTC Strep Screen (Rapid) Positive (Negative)
[2023-04-27 13:53] VITALS: BP 132/70; PULSE 76; RESP 18; TEMP 37.1; O2SAT 96
== END 2023-04-27 13:54 | disposition home or self-care (01) ==
PROVIDERS: Emergency Provider Nurse Practitioner Family; PCP Family Medicine
DX: J02.0 Streptococcal pharyngitis (principal); R50.9 Fever, unspecified; E11.9 Type 2 diabetes mellitus without complications; E03.9 Hypothyroidism, unspecified; I10 Essential (primary) hypertension; E78.5 Hyperlipidemia, unspecified; M35.00 Sjogren syndrome, unspecified; F41.9 Anxiety disorder, unspecified; F32.A Depression, unspecified; M19.90 Unspecified osteoarthritis, unspecified site
CPT/HCPCS: 87880; 99212; 99214; G0463

== ENCOUNTER → 2023-07-21 14:20 | Outpatient (CLI) | payer MEDICARE, SELFPAY ==
[2023-07-21 17:05] LABS: Basophils % 0.2 % (0.1-2.0); Eosinophils # 0.1 K/mm3 (0.0-0.4); Eosinophils % 2.1 % (0.1-12.0); Hematocrit 39.7 % (37.0-47.0); Hemoglobin 12.5 g/dL (12.2-16.2); Lymphocytes # 1.6 K/mm3 (0.7-4.5); Lymphocytes % 32.7 % (10-50); Mean Corpuscular HGB Conc 31.5 g/dL (31.8-35.4); Mean Corpuscular Hemoglobin 34.5 pg (27.0-31.2); Mean Corpuscular Volume 109.6 fl (81-99); Mean Platelet Volume 8.8 fl (7.4-10.4); Monocytes # 0.3 K/mm3 (0.1-1.0); Monocytes % 5.4 % (1.7-9.3); Neutrophils % 59.6 % (37.0-80.0); Platelet Count 313 K/mm3 (142-424); Red Blood Count 3.62 M/mm3 (4.20-5.40); Red Cell Distribution Width 14.5 % (11.5-17.5)
[2023-07-21 17:10] LABS: Chloride 104 mmol/L (98-107); Sodium 140 mmol/L (136-145)
[2023-07-21 17:11] LABS: INR 1.27 (0.9-1.1); Prothrombin Time 13.5 seconds (10.1-12.5)
[2023-07-21 17:13] LABS: Alanine Aminotransferase 36 U/L (12-78); Albumin Level 2.4 g/dl (3.5-5.0); Albumin/Globulin Ratio 0.7 (1.1-1.8); Alkaline Phosphatase 187 U/L (38-126); Aspartate Amino Transferase 82 U/L (14-36); Bilirubin,Total 1.2 mg/dl (0.2-1.3); Blood Urea Nitrogen 5 mg/dl (7-17); Calcium 7.6 mg/dl (8.4-10.2); Carbon Dioxide 29 mmol/L (22.0-30.0); Estimated Glomerular Filt Rate 73 ml/min (>60); GFR (African American) 89 ML/MIN (>60); Globulin 3.6 g/dL (1.3-3.2); Glucose 93 mg/dl (74-100); Lipase 25 U/L (23-300)
[2023-07-21 17:37] LABS: Amylase < 30 U/L (30-110); Anion Gap 9.8 mEq/L (5-15)
[2023-07-21 17:40] LABS: Potassium 2.8 mmoL/L (3.5-5.1)
== END ==
PROVIDERS: PCP Nurse Practitioner Family; Visit Provider Nurse Practitioner Family
DX: I10 Essential (primary) hypertension (principal); R60.9 Edema, unspecified; K92.1 Melena; T14.8XXA Other injury of unspecified body region, initial encounter; R79.1 Abnormal coagulation profile
CPT/HCPCS: 80053; 82150; 83690; 85025; 85610

== ENCOUNTER 2023-07-22 11:30 | Emergency (ER) | payer MEDICARE, SELFPAY ==
[2023-07-22] VITALS (13 sets, daily range): BP systolic 102–123; BP diastolic 55–76; PULSE 67–74; RESP 13–20; TEMP 36.8; O2SAT 77–100; BMI 31.1
--- NOTE | 2023-07-22 11:37 | ECG_ITS ---
APPROVED REPORT Exam: Resting ECG HR:63 bpm ECG Measurements Heart Rate 63 AXES QRSd 86 QRS 29 QT 400 T 9 QTc 408 Conclusion Sinus rhythm with short [place] interval Poor r wave progression ABNORMAL RHYTHM ECG UNCONFIRMED REPORT Electronically signed by : Jesus Tello MD 07/26/2023 11:11:40
--- NOTE | 2023-07-22 11:44 | HMH.EDGENADL ---
Discharge Plan Disposition Patient Disposition: Home, Self-Care Condition: Good Prescriptions Prescriptions: No Action omeprazole 40 mg capsule,delayed release(DR/EC) 40 mg PO BID Patient Comments: TAKE 1 CAPSULE BY MOUTH TWICE DAILY levothyroxine 100 mcg tablet 100 mcg PO DAILY 30 Days Qty: 30 1RF carvedilol 3.125 mg tablet 3.125 mg PO BID albuterol sulfate [ProAir HFA] 90 mcg/actuation HFA aerosol inhaler 1 inh inhalation Q6H PRN (Reason: shortness of breath or wheezing) 5 Days Qty: 6.7 0RF ondansetron 4 mg Tablet,Disintegrating 4 mg PO Q8H PRN (Reason: Nausea) Qty: 12 0RF Referrals Follow up/Referrals: Temo Fox MD [Primary Care Provider] - See instructions Activity Restrictions/Add. Instructions Additional Instructions/Restrictions: Please follow-up closely with your primary care provider over the next 3 days. Make sure that you are staying hydrated. Return to the emergency department for new or worsening symptoms Clinical Impressions Clinical Impression: Hypokalemia, Chronic nausea Instructions Patient Instructions: DI for Hyperglycemia -- Adult Discharge ED Provider: Tessie Escudero General Adult HPI <J Chris Russell MD - Last Filed: 07/22/23 14:51> General Chief complaint: Hyper/Hypoglycemia Stated complaint: low potassium, abd pain, phy ref Time Seen by Provider: 07/22/23 11:40 History of Present Illness HPI narrative: Patient is a 58-year-old female here with hypokalemia. States she had a gastric sleeve that was done in October of this year and she has had nausea and vomiting ever since that time. She subsequently has followed up with her wood scaler and her bariatric surgeon has not had an endoscopy and a colonoscopy without any significant abnormalities but continues to have nausea and vomiting. Nothing acute from that standpoint today no significant abdominal pain but she went to her primary care doctor yesterday and was given a call and stated that her potassium was 2.8 which is why she presents to the emergency department today. She has some mild weakness no other symptoms Related Data Home Medications Medication Instructions Recorded Confirmed carvedilol 3.125 mg tablet 3.125 mg PO BID High blood pressure 01/14/23 07/21/23 omeprazole 40 mg capsule,delayed 40 mg PO BID gerd 01/30/23 07/21/23 release Previous Rx's Medication Instructions Recorded albuterol sulfate 90 mcg/actuation 1 inh inhalation Q6H PRN shortness 04/05/23 aerosol inhaler (ProAir HFA) of breath or wheezing 5 days #6.7 grams ondansetron 4 mg disintegrating 4 mg PO Q8H PRN Nausea #12 tabs 04/27/23 tablet levothyroxine 100 mcg tablet 100 mcg PO DAILY thyroid 30 days 04/30/23 #30 tabs Allergies Allergy/AdvReac Type Severity Reaction Status Date / Time hydrocodone [From LORTAB] Allergy Unknown FAINTING Verified 07/21/23 14:32 latex [LATEX] Allergy Unknown I-HIVES Verified 07/21/23 14:32 [facility] <J Chris Russell MD - Last Filed: 07/22/23 14:51> [facility] Disclaimer: The information contained in this section may have been updated after the patient was seen, as this information can be updated by other users. Medical History Anxiety Arthritis Depression Diabetes mellitus Fatty liver Fibromyalgia History of blood clots Hyperlipidemia Hypertension Hypothyroidism Sjogrens syndrome Surgical History H/O oophorectomy H/O tubal ligation History of bariatric surgery History of cholecystectomy Family History Mother Cancer Father Coronary artery disease Sister Diabetes Social History Smoking Status: Never smoker alcohol intake: never substance use type: denies use current occupational status: disabled Travel in the last 8 weeks: None
[2023-07-22 11:51] LABS: Basophils % 0.5 % (0.1-2.0); Eosinophils # 0.1 K/mm3 (0.0-0.4); Eosinophils % 2.2 % (0.1-12.0); Hematocrit 38.5 % (37.0-47.0); Hemoglobin 12.6 g/dL (12.2-16.2); Lymphocytes # 1.4 K/mm3 (0.7-4.5); Lymphocytes % 30.5 % (10-50); Mean Corpuscular HGB Conc 32.7 g/dL (31.8-35.4); Mean Corpuscular Hemoglobin 36.8 pg (27.0-31.2); Mean Corpuscular Volume 112.6 fl (81-99); Mean Platelet Volume 8.8 fl (7.4-10.4); Monocytes # 0.3 K/mm3 (0.1-1.0); Monocytes % 5.4 % (1.7-9.3); Neutrophils # 2.9 K/mm3 (1.8-7.8); Neutrophils % 61.5 % (37.0-80.0); Platelet Count 299 K/mm3 (142-424); Red Blood Count 3.42 M/mm3 (4.20-5.40); Red Cell Distribution Width 14.7 % (11.5-17.5); White Blood Count 4.7 K/mm3 (4.8-10.8)
[2023-07-22 12:21] LABS: Chloride 105 mmol/L (98-107); Sodium 139 mmol/L (136-145)
[2023-07-22 12:23] LABS: Blood Urea Nitrogen 5 mg/dl (7-17); Creatinine Clearance Estimated 104 mL/min (50-200); Estimated Glomerular Filt Rate 85 ml/min (>60); GFR (African American) 103 ML/MIN (>60)
[2023-07-22 12:24] LABS: Alanine Aminotransferase 43 U/L (12-78); Albumin Level 2.5 g/dl (3.5-5.0); Albumin/Globulin Ratio 0.6 (1.1-1.8); Alkaline Phosphatase 178 U/L (38-126); Aspartate Amino Transferase 104 U/L (14-36); Bilirubin,Total 1.3 mg/dl (0.2-1.3); Calcium 7.5 mg/dl (8.4-10.2); Carbon Dioxide 27 mmol/L (22.0-30.0); Globulin 3.9 g/dL (1.3-3.2); Glucose 100 mg/dl (74-100); Total Protein,Serum 6.4 g/dl (6.3-8.2)
[2023-07-22 12:25] LABS: Magnesium 1.9 mg/dl (1.6-2.3); Phosphorous 3.1 mg/dl (2.5-4.5)
--- NOTE | 2023-07-22 12:25 | PC.NURSE ---
aware of critical K+ 2.7
[2023-07-22 12:29] LABS: Anion Gap 9.7 mEq/L (5-15); Potassium 2.7 mmoL/L (3.5-5.1)
--- NOTE | 2023-07-22 13:17 | PC.NURSE ---
called dietary for pt some mashed potatoes
--- NOTE | 2023-07-22 13:19 | PC.NURSE ---
pt food is here and she is now eating
== END 2023-07-22 17:25 | disposition home or self-care (01) ==
PROVIDERS: Student in an Organized Health Care Education/Training Program; Emergency Provider Emergency Medicine; PCP Family Medicine
DX: R10.9 Unspecified abdominal pain (principal); E87.6 Hypokalemia; R11.0 Nausea
CPT/HCPCS: 80053; 83735; 84100; 85025; 93005; 96361; 96365; 96366; 99285

== ENCOUNTER → 2023-07-24 07:38 | Outpatient (CLI) | payer MEDICARE, SELFPAY ==
--- NOTE | 2023-07-24 07:38 | US_ITS ---
FINAL REPORT CLINICAL HISTORY: history of fatty liver, BLE edema COMPARISON: None FINDINGS: Sonographic images of the abdomen were obtained. There is coarsening of the hepatic echotexture and a slight lobular contour of the liver, compatible with cirrhosis of the liver. The gallbladder is surgically absent. There is no evidence of biliary ductal dilatation. The common hepatic duct measures 8 mm, which is of questionable significance as the patient is status post cholecystectomy. The pancreas is poorly visualized secondary to overlying bowel gas. The spleen size is normal. The right kidney measures 9.8 in length. The left kidney measures 9.1 in length. There is normal renal echogenicity. There is no evidence of hydronephrosis. The aorta has an unremarkable appearance. Limited images of the inferior vena cava are unremarkable. There is small to moderate ascites in the abdomen, and a small left pleural effusion is present as well. IMPRESSION: Coarsening of the hepatic echotexture and lobular contour consistent with cirrhosis. Small to moderate ascites and small left pleural effusion. Gallbladder surgically resected. Common bile duct slightly prominent measuring 8 mm, which is of questionable significance as it may represent post cholecystectomy change. Reviewed, Interpreted and Dictated by Pantera Ortiz III, MD Transcribed by Kesha Morales Authenticated and [facility]
== END ==
LOC: RAD 07:38
PROVIDERS: PCP Family Medicine; Visit Provider Nurse Practitioner Family
DX: K76.0 Fatty (change of) liver, not elsewhere classified (principal)
CPT/HCPCS: 76700

== ENCOUNTER → 2023-07-28 23:21 | Outpatient (CLI) | payer MEDICARE, SELFPAY ==
[2023-07-28 17:15] LABS: Chloride 104 mmol/L (98-107)
[2023-07-28 17:16] LABS: Potassium 3.4 mmoL/L (3.5-5.1); Sodium 140 mmol/L (136-145)
[2023-07-28 17:18] LABS: Alanine Aminotransferase 35 U/L (12-78); Alkaline Phosphatase 194 U/L (38-126); Anion Gap 8.4 mEq/L (5-15); Aspartate Amino Transferase 100 U/L (14-36); Bilirubin,Total 1.5 mg/dl (0.2-1.3); Blood Urea Nitrogen 4 mg/dl (7-17); Carbon Dioxide 31 mmol/L (22.0-30.0); Estimated Glomerular Filt Rate 85 ml/min (>60); GFR (African American) 103 ML/MIN (>60)
[2023-07-28 17:19] LABS: Albumin Level 2.3 g/dl (3.5-5.0); Albumin/Globulin Ratio 0.6 (1.1-1.8); Calcium 7.8 mg/dl (8.4-10.2); Globulin 3.7 g/dL (1.3-3.2); Glucose 78 mg/dl (74-100)
== END ==
PROVIDERS: PCP Nurse Practitioner Family; Visit Provider Nurse Practitioner Family
DX: E87.6 Hypokalemia (principal)
CPT/HCPCS: 80053

== ENCOUNTER 2024-05-17 16:46 | Outpatient (CLI) | payer MEDICARE, SELFPAY ==
[2024-05-17 17:49] LABS: Potassium 3.5 mmoL/L (3.5-5.1)
[2024-05-17 18:11] LABS: Free Thyroxine Index 2.9 ug/dL (5.93-13.13); T4 (Thyroxine) 9.5 ug/dl (5.53-11.0); Triiodothryronine (T3) Uptake 30 % (23.5-40.5)
[2024-05-17 18:25] LABS: Thyroid Stimulating Hormone 0.32 uIU/mL (0.465-4.68)
== END 2024-05-17 23:59 | disposition home or self-care (01) ==
LOC: LAB.DROPOF 16:47
PROVIDERS: PCP Nurse Practitioner Family; Visit Provider Nurse Practitioner Family
DX: E03.9 Hypothyroidism, unspecified (principal)
CPT/HCPCS: 84132; 84436; 84443; 84479

== ENCOUNTER 2024-08-24 09:15 | Outpatient (CLI) | payer MEDICARE, SELFPAY ==
[2024-08-24 16:38] LABS: Creatinine,Urine Random 109 mg/dL (Not Estab.); Microalbumin < 6.000 mg/L (0-16.7)
[2024-08-24 17:20] LABS: T4 (Thyroxine) 8.4 ug/dl (5.53-11.0)
[2024-08-24 17:34] LABS: Thyroid Stimulating Hormone 3.32 uIU/mL (0.465-4.68)
== END 2024-08-24 23:59 | disposition home or self-care (01) ==
LOC: LAB.DROPOF 08-25 11:49
PROVIDERS: PCP Family Medicine; Visit Provider Family Medicine
DX: E03.9 Hypothyroidism, unspecified (principal)
CPT/HCPCS: 82043; 82570; 84436; 84443

== ENCOUNTER 2024-11-01 16:33 | Outpatient (CLI) | payer MEDICARE, SELFPAY ==
[2024-11-01 16:47] LABS: INR 1.84 (0.9-1.1)
== END 2024-11-01 23:59 | disposition home or self-care (01) ==
LOC: LAB.DROPOF 16:34
PROVIDERS: PCP Internal Medicine Medical Oncology; Visit Provider Internal Medicine Medical Oncology
DX: Z79.01 Long term (current) use of anticoagulants (principal)
CPT/HCPCS: 85610

== ENCOUNTER 2024-11-29 17:23 | Outpatient (CLI) | payer MEDICARE, SELFPAY ==
[2024-11-29 17:54] LABS: INR 2.24 (0.9-1.1); Prothrombin Time 22.8 seconds (9.2-12.1)
== END 2024-11-29 23:59 | disposition home or self-care (01) ==
PROVIDERS: PCP Internal Medicine Medical Oncology; Visit Provider Internal Medicine Medical Oncology
DX: Z79.01 Long term (current) use of anticoagulants (principal)
CPT/HCPCS: 85610

== ENCOUNTER 2024-12-08 08:16 | Outpatient (CLI) | payer MEDICARE, SELFPAY ==
[2024-12-08 08:38] LABS: INR 2.24 (0.9-1.1); Prothrombin Time 22.8 seconds (9.2-12.1)
== END 2024-12-08 23:59 | disposition home or self-care (01) ==
LOC: LAB 08:18
PROVIDERS: PCP Family Medicine; Visit Provider Family Medicine
DX: Z79.899 Other long term (current) drug therapy (principal)
CPT/HCPCS: 36415; 85610

== ENCOUNTER 2025-04-22 10:48 | Outpatient (CLI) | payer MEDICARE, SELFPAY ==
--- OUTSIDE RECORDS SUMMARY | 2025-03-10 09:00 | XMS_ITS | Encounter Summary ---
Author Organization [facility] Address [address] [place] [address] Care Team Providers Care Pad Cutter Name Role Phone Temo Fox MD Primary Care Provider Bree Cherie Riojas PHONE BANKER Unavailable [phone] Reason for Referral * Imaging (Routine) - Pending Review Specialty Diagnoses / Procedures Referred By Chanell goode Referred To Contact Gastroenterology Diagnoses Decompensated hepatic cirrhosis (CMS/HCC) Procedures EGD Abdirizak Umanzor MD [address] [address] Phone: tel: fax: Referral ID Status Reason Start Date Expiration Date Visits Requested Visits Authorized [id number] Pending Review Specialty Services Required 03/10/2025 09/09/2026 1 1 * Imaging (Routine) - Closed Specialty Diagnoses / Procedures Referred By Chanell goode Referred To Contact Radiology Diagnoses Elevated AFP Decompensated hepatic cirrhosis (CMS/HCC) Procedures CT Abdomen w IV Contrast Abdirizak Umanzor MD [address] [address] Phone: tel: fax: Referral ID Status Reason Start Date Expiration Date Visits Re quested Visits Authorized [id number] Closed 03/10/2025 09/09/2026 1 1 Reason for Visit * Reason Comments Follow-up Encounter Details Date Type Department Care Team (Latest Contact Info) Description 03/10/2025 9:00 AM EDT Office [facility] [place] [address] [facility], [address] [place] [address] Abdirizak Umanzor MD [address] [place] [address] Elevated AFP (Primary Dx); Decompensated hepatic cirrhosis (CMS/HCC); Carrier of hemochromatosis HFE gene mutation Social History Tobacco Use Types Packs/Day Years Used Date Smoking Tobacco: Never Smokeless Tobacco: Never Alcohol Use Standard Drinks/Week Comments No 0 (1 standard drink = 0.6 oz pur e alcohol) PHQ-2 Answer Date Recorded Patient Health Questionnaire-2 Score 0 05/12/2024 Comments No Sex and Gender Information Value Date Recorded Sex Assigned at Not on file Legal Sex Female 7:56 PM EDT Gender Identity Not on file Sexual Orientation Not on file documented as of this encounter Last Filed Vital Signs Vital Sign Reading Time Taken Comments Blood Pressure 107/75 03/10/2025 8:52 AM EDT Pulse 80 03/10/2025 8:52 AM EDT Temperature 36.9 C (98.4 F) 03/10/2025 8:52 AM EDT Respiratory Rate - - Oxygen Saturation 97% 03/10/2025 8:52 AM EDT Inhaled Oxygen Concentration - - Weight 75.4 kg (166 lb 3.6 oz) 03/10/2025 8:52 A M EDT Height 160 cm (5' 3 ) 03/10/2025 8:52 AM EDT Body Mass Index 29.45 03/10/2025 8:52 AM EDT documented in this encounter Miscellaneous Notes * Progress Notes - Souleymane Owens MD - 03/10/2025 9:00 AM EDT Subjective Patient ID: Melissa Morrison is a 59 y.o. female. Decompensated MASLD and HH cirrhosis Abdominal Pain The problem occurs rarely. The problem has been resolved. The pain is located in the right flank. The pain is at a severity of 1/10. The quality of the pain is dull. Nothing aggravates the pain. The pain is relieved by Nothing. 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 Noted to have a meld score of 8. Had ED visit 01/16-01/17 with chest pain, cardiac work-up negative. Admitted overnight and rash appeared. found to have shingles about 2 months ago with some residual pain. Today, she presents alone and reports doing well overall. Since started on a pre-grace vitamin for hair loss. Intermittent RUQ pain she contributes to adhesions as its a tugging pain. Patient denies any complaints of nausea, vomiting, diarrhea, melena, hematochezia, hematemesis, fever, chills, rigors, jaundice, pruritus. US Liver 11/25/24 - No liver lesions The following portions of the chart were reviewed this encounter and updated as appropriate: Tobacco Allergies Meds Problems Med Hx Surg Hx Fam Hx Review of Systems Gastrointestinal: Positive for abdominal pain. 14 point ROS reviewed, negative unless stated above Objective Visit Vitals BP 107/75 (BP Location: Right arm, Patient Position: Sitting, BP Cuff Size: Adult long) Pulse 80 Temp 36.9 ??C (98.4 ??F) (Skin) Ht 1.6 m (5' 3 ) Wt 75.4 kg (166 lb 3.6 oz) SpO2 97% BMI 29.45 kg/m?? Physical Exam General Awake, NAD Eyes EOMI, sclera anicteric Head NC/AT ENT OP moist. Hearing grossly normal. CV Warm and well perfused RES Equal chest rise, normal effort GI Soft. NT/ND. No rebound, guarding. STACI AAOx4. No gross deficits. EXT No cyanosis. No edema Skin No Jaundice. No visible skin lesions PSY Appropriate mood and affect Current Outpatient Medications: B Erklzfg-Mlnkfy-VL (B Complex 100 TR) tablet controlled-release, , Disp: , Rfl: biotin 1000 MCG tablet, , Disp: , Rfl: Eliquis 2.5 MG tablet, Take 1 tablet by mouth 2 times a day., Disp: , Rfl: FeroSul 325 (65 Fe) MG tablet, Take 1 tablet by mouth daily., Disp: , Rfl: FLUoxetine (PROzac) 10 MG capsule, , Disp: , Rfl: folic acid (Folvite) 1 MG tablet, Take 1 tablet (1,000 mcg) by mouth 1 (one) time each day., Disp: , Rfl: furosemide (Lasix) 40 MG tablet, Take 1 tablet (40 mg) by mouth 1 (one) time each day., Disp: , Rfl: ibuprofen 600 MG tablet, Take 1 tablet by mouth 2 times a day., Disp: , Rfl: levothyroxine (Synthroid, Levoxyl) 100 MCG tablet, TAKE 1 TABLET BY MOUTH ONCE DAILY FOR THYROID, Disp: , Rfl: ondansetron (Zofran) 4 MG tablet, , Disp: , Rfl: pantoprazole (Protonix) 40 MG EC tablet, Take 1 tablet by mouth daily., Disp: , Rfl: potassium chloride CR (Klor-Con M20) 20 MEQ ER tablet, Take 1 tablet (20 mEq) by mouth Daily., Disp: , Rfl: MV & Min w/FA-DHA ( Adult Gummy/DHA/FA) 0.4-25 MG chewable tablet, Chew., Disp: , Rfl: spironolactone (Aldactone) 50 MG tablet, Take 1 tablet (50 mg) by mouth 1 (one) time each day., Disp: 30 each, Rfl: 11 Laboratory values CBC: WBC Count Date/Time Value Ref Range Status 05/12/2024 01:41 PM 5.82 3.70 - 10.30 10*3/uL Final 01/27/2024 08:14 AM 3.54 (L) 3.70 - 10.30 10*3/uL Final 10/28/2023 07:43 AM 4.09 3.70 - 10.30 10*3/uL Final External WBC Date/Time Value Ref Range Status 11/11/2023 12:00 AM 3.7 Final HGB Date/Time Value Ref Range Status 05/12/2024 01:41 PM 13.7 11.2 - 15.7 g/dL Final 01/27/2024 08:14 AM 11.7 11.2 - 15.7 g/dL Final 10/28/2023 07:43 AM 12.5 11.2 - 15.7 g/dL Final External Hemoglobin (Hgb) Date/Time Value Ref Range Status 11/11/2023 12:00 AM 11.80 Final HCT Date/Time Value Ref Range Status 05/12/2024 01:41 PM 40.6 34.0 - 45.0 % Final 01/27/2024 08:14 AM 34.6 34.0 - 45.0 % Final 10/28/2023 07:43 AM 38.0 34.0 - 45.0 % Final External Hematocrit (Hct) Date/Time Value Ref Range Status 11/11/2023 12:00 AM 35.7 Final Platelet Count Date/Time Value Ref Range Status 05/12/2024 01:41 PM 220 155 - 369 10*3/uL Final 01/27/2024 08:14 AM 201 155 - 369 10*3/uL Final 10/28/2023 07:43 AM 250 155 - 369 10*3/uL Final External Platelet Count (Plt) Date/Time Value Ref Range Status 11/11/2023 12:00 AM 207 Final CMP: Sodium, Plasma Date/Time Value Ref Range Status 05/12/2024 01:41 PM 142 136 - 145 mmol/L Final 01/27/2024 08:14 AM 143 136 - 145 mmol/L Final 10/28/2023 07:43 AM 142 136 - 145 mmol/L Final External Sodium (Na) Date/Time Value Ref Range Status 11/11/2023 12:00 AM 143 mEq/L Final Potassium, Plasma Date/Time Value Ref Range Status 05/12/2024 01:41 PM 3.6 (L) 3.7 - 4.8 mmol/L Final 01/27/2024 08:14 AM 3.1 (L) 3.7 - 4.8 mmol/L Final 10/28/2023 07:43 AM 3.1 (L) 3.7 - 4.8 mmol/L Final External Potassium (K) Date/Time Value Ref Range Status 11/11/2023 12:00 AM 3.6 Final Chloride, Plasma Date/Time Value Ref Range Status 05/12/2024 01:41 PM 109 (H) 97 - 107 mmol/L Final 01/27/2024 08:14 AM 109 (H) 97 - 107 mmol/L Final 10/28/2023 07:43 AM 107 97 - 107 mmol/L Final External Chloride (Cl) Date/Time Value Ref Range Status 11/11/2023 12:00 AM 108 Final CO2, Plasma Date/Time Value Ref Range Status 05/12/2024 01:41 PM 24 22 - 29 mmol/L Final 01/27/2024 08:14 AM 26 22 - 29 mmol/L Final 10/28/2023 07:43 AM 28 22 - 29 mmol/L Final External Carbon Dioxide (CO2) Date/Time Value Ref Range Status 11/11/2023 12:00 AM 30 Final BUN, Plasma Date/Time Value Ref Range Status 05/12/2024 01:41 PM 13 8 - 23 mg/dL Final 01/27/2024 08:14 AM 9 8 - 23 mg/dL Final 10/28/2023 07:43 AM 12 8 - 23 mg/dL Final External BUN Date/Time Value Ref Range Status 11/11/2023 12:00 AM 11 Final Creatinine, Plasma Date/Time Value Ref Range Status 05/12/2024 01:41 PM 0.90 0.60 - 1.10 mg/dL Final 01/27/2024 08:14 AM 0.71 0.60 - 1.10 mg/dL Final 10/28/2023 07:43 AM 0.67 0.60 - 1.10 mg/dL Final External Creatinine Blood Date/Time Value Ref Range Status 11/11/2023 12:00 AM 0.7 mg/dL Final Total Calcium, Plasma Date/Time Value Ref Range Status 05/12/2024 01:41 PM 9.1 8.9 - 10.2 mg/dL Final 01/27/2024 08:14 AM 8.6 (L) 8.9 - 10.2 mg/dL Final 10/28/2023 07:43 AM 8.7 (L) 8.9 - 10.2 mg/dL Final External Calcium (Ca) Date/Time Value Ref Range Status 11/11/2023 12:00 AM 8.1 Final External Total Protein Date/Time Value Ref Range Status 11/11/2023 12:00 AM 6.2 Final Total Bilirubin, Plasma Date/Time Value Ref Range Status 05/12/2024 01:41 PM 0.5 0.2 - 1.1 mg/dL Final 01/27/2024 08:14 AM 0.5 0.2 - 1.1 mg/dL Final 10/28/2023 07:43 AM 0.8 0.2 - 1.1 mg/dL Final External Bilirubin Total Date/Time Value Ref Range Status 11/11/2023 12:00 AM 0.7 mg/dL Final Alkaline Phosphatase, Plasma Date/Time Value Ref Range Status 05/12/2024 01:41 PM 206 (H) 46 - 142 U/L Final 01/27/2024 08:14 AM 123 46 - 142 U/L Final 10/28/2023 07:43 AM 109 46 - 142 U/L Final External Alkaline Phosphatase Date/Time Value Ref Range Status 11/11/2023 12:00 AM 120 Final ALT, Plasma Date/Time Value Ref Range Status 05/12/2024 01:41 PM 33 10 - 35 U/L Final 01/27/2024 08:14 AM 28 10 - 35 U/L Final 10/28/2023 07:43 AM 32 10 - 35 U/L Final External ALT (SGPT) Date/Time Value Ref Range Status 11/11/2023 12:00 AM 31 Final AST, Plasma Date/Time Value Ref Range Status 05/12/2024 01:41 PM 47 (H) 10 - 35 U/L Final 01/27/2024 08:14 AM 37 (H) 10 - 35 U/L Final 10/28/2023 07:43 AM 61 (H) 10 - 35 U/L Final External AST (SGOT) Date/Time Value Ref Range Status 11/11/2023 12:00 AM 44 Final Glucose, Plasma Date/Time Value Ref Range Status 05/12/2024 01:41 PM 45 (LL) 74 - 99 mg/dL Final 01/27/2024 08:14 AM 84 74 - 99 mg/dL Final 10/28/2023 07:43 AM 77 74 - 99 mg/dL Final External Glucose Date/Time Value Ref Range Status 11/11/2023 12:00 AM 78 Final Imaging/Radiology No images are attached to the encounter or orders placed in the encounter. Assessment/Plan Diagnoses and all orders for this visit: Elevated AFP - Alpha Fetoprotein, Serum; Future - AFP L3; No; Immediate - Miscellaneous Test; Future - CT Abdomen w IV Contrast; Future Decompensated hepatic cirrhosis (CMS/HCC) - Comprehensive Metabolic Panel, Plasma; Future - CBC and Differential; Future - Prothrombin Time/INR; Future - Alpha Fetoprotein, Serum; Future - AFP L3; No; Immediate - Miscellaneous Test; Future - CT Abdomen w IV Contrast; Future - EGD; Future Carrier of hemochromatosis HFE gene mutation # Cirrhosis, decompensated with ascites - Etiology: - MASLD and HH (heterozygous for 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 Repeating MELD labs today - She is immune to Hepatitis A and B MELD 8 on the last visit. Will get repeat MELD labs today. - No NSAIDS due to risk of bleeding. No LISANDRO-I or ARBs due to risk of hypotension and KIMANI. Acetaminophen up to 2 grams per day if needed. - Recommend daily protein intake of 1.2 to 1.5 g/kg and caloric intake of at least 35 Kcal/kg idealbody weight, thiamine, vitamin B complex supplementation and sweeper cleaner industrial breakfast, late evening snack, and intake of small, frequent meals and snacks every 3- 4 hours while awake Low MELD score, no indication for liver transplant evaluation is time, we will refer her to [place] [facility]. # Ascites: Never had paracentesis or LVP she is currently on furosemide 20 mg and spironolactone 50 mg daily - Continue current diuretic doses - continue 2 g sodium restricted diet # HE: None # Esophageal varices screening No history of GI bleed. Had EGD at time of Gastric sleeve (2-3 years ago at [facility]) and was negative for EV. Was on coreg before for HTN but has been discontinued with bradycardia - Due for EGD, ordered last visit. Will re-order today and encouraged patient to schedule - defer NSBB until EGD given prior bradycardia. # HCC screening; had prior mild AFP elevation 11/05 - US Liver 11/2024 - no liver lesions - AFP 17.7 ng/ml last visit. Repeating AFP today - Check AFP L3 to distinguish AFP elevation as HCC vs other cause - Needs Q 6 monthly surveillance, ordered CT liver for next imaging in for 05/2025. -If CT normal plan for US liver on follow-up to clinic in 7 months # asymptomatic bradycardia - improved - rat last visit HR 40 and upper 50s since her sleeve surgery. Reports it has been doing better recently. Noted to be 80 bpm today - deferring NSBB as above with history of bradycardia - she follows with senior clinical project manager in [facility] # history of Iron overload - heterozygous for C282 Y mutation - Had required phlebotomy the past - Continue to monitor - Follows with [employer] in [place]. # Factor V leiden mutation, recurrent DVT - off from anticoagulation based on outside Hematology recommendations - monitor for now RTC in 7 months Cosigned by Abdirizak Umanzor MD at 03/10/2025 3:57 PM EDT Associated attestation - Abdirizak Umanzor MD - 03/10/2025 3:57 PM EDT I saw and evaluated the patient with the resident/fellow. I discussed the case with the resident/fellow and agree with the findings and plan as documented. Abdirizak Umanzor MD documented in this encounter Plan of Treatment Upcoming Encounters Date Type Department Care Team (Late st Contact Info) Description 09/29/2025 8:40 AM EST Office Visit [facility] [place] [address] [facility], [address] [place] [address] Abdirizak Umanzor MD [address] [place] [id number] Scheduled Orders Name Type Priority Associated Diagnoses Orde r Schedule EGD Endoscopy Routine Decompensated hepatic cirrhosis (CMS/HCC) Expected: 03/10/2025, Expires: 03/10/2026 documented as of this encounter Results * CT Abdomen w IV Contrast (04/01/2025 3:02 PM EDT) Anatomical Region Laterality Modality Abdomen Computed Tomogra phy Impressions 04/01/2025 11:45 PM EDT Focal Hepatic Observations: LI-RADS Negative Cirrhotic liver morphology. Evidence of portal hypertension with mild perisplenic varices and a small splenorenal shunt. No splenomegaly or ascites. CRITICAL RESULT: No. COMMUNICATION: Per this written report. LI-RADS M = Probably or definitely malignant but not HCC specific LI-RADS TI-V = Definitely tumor in vein LI-RADS 5 = Definitely hepatocellular carcinoma (concordant with OPTN*) LI-RADS 4 = Probably hepatocellular carcinoma LI-RADS 3 = Intermediate probability for hepatocellular carcinoma LI-RADS 2 = Probably benign LI-RADS 1 = Definitely benign LI-RADS NC = Not categorized secondary to image degradation or omission LI-RADS TR Nonviable - Treated, probably or definitely not viable LI-RADS TR Equivocal - Treated, equivocally viable LI-RADS TR Nonprogressing - Treated with radiation, masslike enhancement, which is stable or decreased in size over time after LRT LI-RADS TR Viable - Treated, probably or definitely viable LI-RADS TR Nonevaluable - Cannot be categorized due to image degradation or omission NOTE: LI-RADS categories should be interpreted in the context of other available data, such as biomarkers and the patient's prior probability of developing or having hepatocellular carcinoma. The LI-RADS classification of liver lesions has been adopted to standardize CT and MRI scan reporting in patients at risk for hepatocellular carcinoma. CT/MRI LI- RADS and US LI-RADS are consistent with and integrated into the [place] [employer] for the Study of Liver Diseases (AASLD) 2018 hepatocellular carcinoma (HCC) clinical practice guidance. LI-RADS criteria and documentation are available online at www.acr.org/Quality-Safety/Resources/LIRADS. This report utilizes LI-RADS version 2018 with updated Treatment Response Assessment (TRA) v2024. *OPTN and LI-RADS criteria for definite HCC are identical except for: 10-19 mm observations with nonrim APHE + nonperipheral washout but without enhancing capsule or threshold growth. Implication: Some LR-5 observations do not count as OPTN 5. By electronically signing this report, I, the attending physician, attest that I have personally reviewed the images/data for the above examination(s) and agree with the final edited report. Drafted by Pennie Villalobos MD on 04/01/2025 3:14 PM Final report signed by Maxine Abernathy MD on 04/01/2025 11:45 PM Narrative 04/01/2025 11:45 PM EDT CLINICAL INDICATION: Risk for hepatocellular carcinoma Cirrhosis, Elevated AFP TECHNIQUE: Multiple axial CT images were obtained of liver and abdomen following administration of IV contrast, Omnipaque 350, 100 mL. Images were obtained during arterial, portal venous, and delayed phases. Reformatted images in the coronal and sagittal planes were generated from the axial data set to facilitate diagnostic accuracy. TOTAL DLP (Dose-Length Product): 661.30 mGy.cm. Please note: The reported value represents the total of one or more individual components during the CT acquisition on this date and at this time, and as such, the same value may appear in more than one CT report depending on the interpreting/reporting physicians. Examination meets LI-RADS technical recommendations. COMPARISON: 11/25/2024: US liver screen 07/06/2024: MR abdomen with and without contrast 10/28/2023: CT abdomen with contrast FINDINGS: Liver/Gallbladder/Biliary Tree: Mildly cirrhotic liver morphology. There are no focal liver lesions prior cholecystectomy. Mild postcholecystectomy extrahepatic biliary ductal ectasia. Hepatic Vasculature: Patent, standard hepatic arterial anatomy. Patent portal and hepatic veins. Small splenorenal shunt. Mild perisplenic varices. Focal Hepatic Observations: None. Extrahepatic Findings: Spleen: Normal size spleen without focal lesion. Other Solid Abdominal Organs: Homogeneous pancreatic enhancement without ductal dilatation. Normal adrenal glands. Symmetric renal enhancement and excretion. No suspicious renal parenchymal lesions. No hydronephrosis. GI Tract/Mesentery/Peritoneum: Small sliding-type hiatal hernia. Prior sleeve gastrectomy. Normal caliber of the visualized small and large bowel. Noninflamed appendix. No acute or suspicious mesenteric/peritoneal findings. Lymph Nodes: No lymphadenopathy by CT size criteria. Other Vasculature: Patent, normal caliber abdominal aorta with minimal atherosclerotic disease. Patent IVC. Free Fluid: No abdominal ascites. Musculoskeletal: No acute or aggressive osseous findings. Lower Chest: No acute or suspicious pulmonary findings. No pleural or pericardial effusion. Procedure Note Maxine Abernathy MD - 04/01/2025 CLINICAL INDICATION: Risk for hepatocellular carcinoma Cirrhosis, Elevated AFP TECHNIQUE: Multiple axial CT images were obtained of liver and abdomen followingadministration of IV contrast, Omnipaque 350, 100 mL. Images were obtainedduring arterial, portal venous, and delayed phases. Reformatted images inthe coronal and sagittal planes were generated from the axial data set tofacilitate diagnostic accuracy. TOTAL DLP (Dose-Length Product): 661.30 mGy.cm. Please note: The reportedvalue represents the total of one or more individual components during theCT acquisition on this date and at this time, and as such, the same valuemay appear in more than one CT report depending on theinterpreting/reporting physicians. Examination meets LI-RADS technical recommendations. COMPARISON: 11/25/2024: US liver screen 07/06/2024: MR abdomen with and without contrast 10/28/2023: CT abdomen with contrast FINDINGS: Liver/Gallbladder/Biliary Tree: Mildly cirrhotic liver morphology. Thereare no focal liver lesions prior cholecystectomy. Mild postcholecystectomyextrahepatic biliary ductal ectasia. Hepatic Vasculature: Patent, standard hepatic arterial anatomy. Patentportal and hepatic veins. Small splenorenal shunt. Mild perisplenicvarices. Focal Hepatic Observations: None. Extrahepatic Findings: Spleen: Normal size spleen without focal lesion. Other Solid Abdominal Organs: Homogeneous pancreatic enhancement withoutductal dilatation. Normal adrenal glands. Symmetric renal enhancement andexcretion. No suspicious renal parenchymal lesions. No hydronephrosis. GI Tract/Mesentery/Peritoneum: Small sliding-type hiatal hernia. Priorsleeve gastrectomy. Normal caliber of the visualized small and largebowel. Noninflamed appendix. No acute or suspicious mesenteric/peritonealfindings. Lymph Nodes: No lymphadenopathy by CT size criteria. Other Vasculature: Patent, normal caliber abdominal aorta with minimalatherosclerotic disease. Patent IVC. Free Fluid: No abdominal ascites. Musculoskeletal: No acute or aggressive osseous findings. Lower Chest: No acute or suspicious pulmonary findings. No pleural orpericardial effusion. IMPRESSION: Focal Hepatic Observations: LI-RADS Negative Cirrhotic liver morphology. Evidence of portal hypertension with mild perisplenic varices and a smallsplenorenal shunt. No splenomegaly or ascites. CRITICAL RESULT: No. COMMUNICATION: Per this written report. LI-RADS M = Probably or definitely malignant but not HCC specific LI-RADS TI-V = Definitely tumor in vein LI-RADS 5 = Definitely hepatocellular carcinoma (concordant with OPTN*) LI-RADS 4 = Probably hepatocellular carcinoma LI-RADS 3 = Intermediate probability for hepatocellular carcinoma LI-RADS 2 = Probably benign LI-RADS 1 = Definitely benign LI-RADS NC = Not categorized secondary to image degradation or omission LI-RADS TR Nonviable - Treated, probably or definitely not viable LI-RADS TR Equivocal - Treated, equivocally viable LI-RADS TR Nonprogressing - Treated with radiation, masslike enhancement,which is stable or decreased in size over time after LRT LI-RADS TR Viable - Treated, probably or definitely viable LI-RADS TR Nonevaluable - Cannot be categorized due to image degradationor omission NOTE: LI-RADS categories should be interpreted in the context of otheravailable data, such as biomarkers and the patient's prior probability ofdeveloping or having hepatocellular carcinoma. The LI-RADS classificationof liver lesions has been adopted to standardize CT and MRI scan reportingin patients at risk for hepatocellular carcinoma. CT/MRI LI-RADS and USLI-RADS are consistent with and integrated into the [place] Associationfor the Study of Liver Diseases (AASLD) 2018 hepatocellular carcinoma(HCC) clinical practice guidance. LI-RADS criteria and documentation areavailable online at www.acr.org/Quality-Safety/Resources/LIRADS. Thisreport utilizes LI-RADS version 2018 with updated Treatment ResponseAssessment (TRA) v2024. *OPTN and LI-RADS criteria for definite HCC are identical except for:10-19 mm observations with nonrim APHE + nonperipheral washout butwithout enhancing capsule or threshold growth. Implication: Some LR-5observations do not count as OPTN 5. By electronically signing this report, I, the attending physician, attestthat I have personally reviewed the images/data for the aboveexamination(s) and agree with the final edited report. Drafted by Pennie Villalobos MD on 04/01/2025 3:14 PM Final report signed by Maxine Abernathy MD on 04/01/2025 11:45 PM Abdirizak Umanzor MD IMG CT PROCEDURES Final Result * AFP L3; No; Immediate - Miscellaneous Test (03/10/2025 9:40 AM EDT) Test name AFP L3 03/14/2025 9:18 AM EDT [facility] Test Result see scanned document 03/14/2025 9:18 AM EDT [facility] LAB See Scanned Result 03/14/2025 9:18 AM EDT [facility] Blood Venipuncture / Unknown 03/10/2025 9:40 AM EDT 03/10/2025 9:40 AM EDT Abdirizak Umanzor MD LAB REF LAB BLOOD AND FLUID OR D Final Result Performing Organization Address [facility] Co de Phone Number [facility] [address] [place] [address] * (ABNORMAL) Alpha Fetoprotein, Serum (03/10/2025 9:40 AM EDT) [facility] Alpha Fetoprotein, Serum 11.4(H) <10.0 ng/mL 03/10/2025 3:22 PM EDT [facility] Blood Venous blood specimen / Unknown Venipuncture / Unknown 03/10/2025 9:40 AM EDT 03/10/2025 9:40 AM EDT Narrative [facility] - 03/10/2025 3:22 PM EDT Performed by Barbi electrochemiluminescent immunoassay which is traceable to the 1st AFP IRP WHO Reference standard 72/255. Results obtained with different test methods or kits cannot be used interchangeably. Abdirizak Umanzor MD LAB BLOOD ORDERABLES Final Res ult Performing Organization Address City/[facility]/ZIP Co de Phone Number [facility] [address] [place] [address] * (ABNORMAL) Prothrombin Time/INR (03/10/2025 9:40 AM EDT) Prothrombin Time 14.6(H) 12.0 - 14.3 sec 03/10/2025 11:45 AM EDT [facility] INR 1.1 0.9 - 1.1 03/10/2025 11:45 AM EDT [facility] Blood Venous blood specimen / Unknown Venipuncture / Unknown 03/10/2025 9:40 AM EDT 03/10/2025 9:40 AM EDT [facility] LAB - 03/10/2025 11:45 AM EDT OPTIMAL INR RANGES FOR PATIENT ON ORAL ANTICOAGULANT THERAPY Prevention of venous thromboembolism INR 2.0 to 3.0 In patients with heart disease: Atrial fibrillation INR 2.0 to 3.0 Valvular heart disease INR 2.0 to 3.0 Tissue heart valves INR 2.0 to 3.0 Mechanical prosthetic valves INR 2.5 to 3.5 Prevention of recurrent MA INR 2.5 to 3.5 us Abdirizak Umanzor MD LAB BLOOD ORDERABLES Final Res ult [facility] [address] [place] [address] * (ABNORMAL) CBC and Differential (03/10/2025 9:40 AM EDT) WBC Count 5.31 3.70 - 10.30 10*3/uL LAB HEMATOLOGY METHOD 03/10/2025 11:40 AM EDT [facility] RBC Count 4.11 3.90 - 5.20 10*6/uL LAB HEMATOLOGY METHOD 03/10/2025 11:40 AM EDT [facility] HGB 14.2 11.2 - 15.7 g/dL LAB HEMATOLOGY METHOD 03/10/2025 11:40 AM EDT [facility] HCT 41.3 34.0 - 45.0 % LAB HEMATOLOGY METHOD 03/10/2025 11:40 AM EDT [facility] Platelet Count 233 155 - 369 10*3/uL LAB HEMATOLOGY METHOD 03/10/2025 11:40 AM EDT [facility] MCV 101(H) 79 - 98 fL LAB HEMATOLOGY METHOD 03/10/2025 11:40 AM EDT [facility] MCH 34.5(H) 26.0 - 32.0 pg LAB HEMATOLOGY METHOD 03/10/2025 11:40 AM EDT [facility] MCHC 34.4 30.7 - 35.5 g/dL LAB HEMATOLOGY METHOD 03/10/2025 11:40 AM EDT [facility] RDW 13.4 11.5 - 14.5 % LAB HEMATOLOGY METHOD 03/10/2025 11:40 AM EDT [facility] MPV 9.8 8.8 - 12.5 fL LAB HEMATOLOGY METHOD 03/10/2025 11:40 AM EDT [facility] nRBC 0.0 <=0.0 per 100 WBCs LAB HEMATOLOGY METHOD 03/10/2025 11:40 AM EDT [facility] Differential Type Automated LAB HEMATOLOGY METHOD 03/10/2025 11:40 AM EDT [facility] Neutrophils % 61 % LAB HEMATOLOGY METHOD 03/10/2025 11:40 AM EDT [facility] Lymphocytes % 25 % LAB HEMATOLOGY METHOD 03/10/2025 11:40 AM EDT [facility] Monocytes % 10 % LAB HEMATOLOGY METHOD 03/10/2025 11:40 AM EDT [facility] Eosinophils % 4 % LAB HEMATOLOGY METHOD 03/10/2025 11:40 AM EDT [facility] Basophils % 0 % LAB HEMATOLOGY METHOD 03/10/2025 11:40 AM EDT [facility] Immature Granulocytes % 0 % LAB HEMATOLOGY METHOD 03/10/2025 11:40 AM EDT [facility] Neutrophils Absolute 3.19 1.60 - 6.10 10*3/uL LAB HEMATOLOGY METHOD 03/10/2025 11:40 AM EDT [facility] Lymphocytes Absolute 1.32 1.20 - 3.90 10*3/uL LAB HEMATOLOGY METHOD 03/10/2025 11:40 AM EDT [facility] Monocytes Absolute 0.55 0.30 - 0.90 10*3/uL LAB HEMATOLOGY METHOD 03/10/2025 11:40 AM EDT [facility] Eosinophils Absolute 0.23 0.00 - 0.50 10*3/uL LAB HEMATOLOGY METHOD 03/10/2025 11:40 AM EDT [facility] Basophils Absolute 0.00 0.00 - 0.10 10*3/uL LAB HEMATOLOGY METHOD 03/10/2025 11:40 AM EDT [facility] Immature Granulocytes Absolute 0.02 0.00 - 0.06 10*3/uL LAB HEMATOLOGY METHOD 03/10/2025 11:40 AM EDT [facility] Blood Venous blood specimen / Unknown Venipuncture / Unknown 03/10/2025 9:40 AM EDT 03/10/2025 9:40 AM EDT Narrative [facility] - 03/10/2025 11:40 AM EDT Therapeutic decision making should be based on absolute values, rather than percentages. us Abdirizak Umanzor MD LAB BLOOD ORDERABLES Final Res ult [facility] [address] [place] [address] * (ABNORMAL) Comprehensive Metabolic Panel, Plasma (03/10/2025 9:40 AM EDT) Glucose, Plasma 87 74 - 99 mg/dL 03/10/2025 12:07 PM EDT [facility] BUN, Plasma 19 8 - 23 mg/dL 03/10/2025 12:07 PM EDT [facility] Creatinine, Plasma 1.01 0.60 - 1.10 mg/dL 03/10/2025 12:07 PM EDT [facility] BUN/Creatinine Ratio 19 03/10/2025 12:07 PM EDT [facility] Sodium, Plasma 139 136 - 145 mmol/L 03/10/2025 12:07 PM EDT [facility] Potassium, Plasma 3.8 3.6 - 4.9 mmol/L 03/10/2025 12:07 PM EDT [facility] Chloride, Plasma 103 97 - 107 mmol/L 03/10/2025 12:07 PM EDT [facility] CO2, Plasma 23 22 - 29 mmol/L 03/10/2025 12:07 PM EDT [facility] Anion Gap 13 6 - 16 mmol/L 03/10/2025 12:07 PM EDT [facility] Total Calcium, Plasma 8.8(L) 8.9 - 10.2 mg/dL 03/10/2025 12:07 PM EDT [facility] Total Protein 7.5 6.3 - 7.9 g/dL 03/10/2025 12:07 PM EDT [facility] Albumin, Plasma 4.4 3.5 - 5.2 g/dL 03/10/2025 12:07 PM EDT [facility] AST, Plasma 56(H) 10 - 35 U/L 03/10/2025 12:07 PM EDT [facility] ALT, Plasma 50(H) 10 - 35 U/L 03/10/2025 12:07 PM EDT [facility] Alkaline Phosphatase, Plasma 214(H) 46 - 142 U/L 03/10/2025 12:07 PM EDT [facility] Total Bilirubin, Plasma 0.7 0.2 - 1.1 mg/dL 03/10/2025 12:07 PM EDT [facility] eGFRcr 63.5 mL/min/1.7 3m*2 03/10/2025 12:07 PM EDT [facility] Comment:Reported eGFRcr in m L/min/1.73m2 is based the CKD-EPI 2020 equation that does not use a race coefficient. Blood Venous blood specimen / Unknown Venipuncture / Unknown 03/10/2025 9:40 AM EDT 03/10/2025 9:40 AM EDT us Abdirizak Umanzor MD LAB BLOOD ORDERABLES Final Res ult Performing Organization Address City/State/[facility] Co de Phone Number [facility] [address] [place] [address] documented in this encounter Visit Diagnoses Diagnosis Elevated AFP- Primary Other nonspecific findings on examination of blood Decompensated hepatic cirrhosis (CMS/HCC) Carrier of hemochromatosis HFE gene mutation Elevated AFP Other nonspecific findings on examination of blood Decompensated hepatic cirrhosis (CMS/HCC) documented in this encounter Additional Health Concerns Assessment Noted Time A fall risk assessment has been complete d for the patient 03/10/2025 8:52 AM EDT A Body Mass Index follow-up plan has been documented for the patient 03/10/2025 9:29 AM EDT documented as of this encounter Care Teams Pad Cutter Relationship Specialty Start Date End Date Temo Fox MD PCP - General Family Medicine 09/29/23 Cherie Pathak APRN [address] [place] [address] [place] [address] Referring Physician Gastroenterology 09/29/23 documented as of this encounter
--- OUTSIDE RECORDS SUMMARY | 2025-04-01 14:35 | XMS_ITS | Encounter Summary ---
Author Organization [facility] Address [address] [place] [address] Care Team Providers Care Pasta Press Operator Name Role Phone Temo Fox MD Primary Care Provider Bree Cherie Riojas HOME CARE ADMINISTRATOR Unavailable [phone] Reason for Referral * Imaging (Routine) - Closed Specialty Diagnoses / Procedures Referred By Chanell goode Referred To Contact Radiology Diagnoses Elevated AFP Decompensated hepatic cirrhosis (CMS/HCC) Procedures CT Abdomen w IV Contrast Abdirizak Umanzor MD [address] [address] Phone: tel: fax: Referral ID Status Reason Start Date Expiration Date Visits Re quested Visits Authorized [id number] Closed 03/10/2025 09/09/2026 1 1 Reason for Visit * Imaging (Routine) - Closed Specialty Diagnoses / Procedures Referred By Chanell goode Referred To Contact Radiology Diagnoses Elevated AFP Decompensated hepatic cirrhosis (CMS/HCC) Procedures CT Abdomen w IV Contrast Abdirizak Umanzor MD [address] [address] Phone: tel: fax: Referral ID Status Reason Start Date Expiration Date Visits Re quested Visits Authorized [id number] Closed 03/10/2025 09/09/2026 1 1 Encounter Details Date Type Department Care Team (Latest Contact Info) Description 04/01/2025 2:35 PM EDT - 04/01/2025 11:59 PM EDT Hospital Encounter [facility] Radiology [address] [place] [id number] Elevated AFP; Decompensated hepatic cirrhosis (CMS/HCC) Discharge Disposition: Home or Self Care Social History Tobacco Use Types Packs/Day Years [...] on file documented as of this encounter Medications at Time of Discharge B Gwdubya-Ywhjyd-JR (B Complex 100 TR) tablet controlled-releas e biotin 1000 MCG tablet Eliquis 2.5 MG tablet Take 1 tablet by mouth 2 times a day. 01/26/2025 FeroSul 325 (65 Fe) MG tablet Take 1 tablet by mouth daily. 12/20/2024 FLUoxetine (PROzac) 10 MG capsule folic acid (Folvite) 1 MG tablet Take 1 tablet (1,000 mcg) by mouth 1 (one) time each day. ibuprofen 600 MG tablet Take 1 tablet by mouth 2 times a day. levothyroxine (Synthroid, Levoxyl) 100 MCG tablet TAKE 1 TABLET BY MOUTH ONCE DAILY FOR THYROID 10/04/2023 ondansetron (Zofran) 4 MG tablet pantoprazole (Protonix) 40 MG EC tablet Take 1 tablet by mouth daily. potassium chloride CR (Klor-Con M20) 20 MEQ ER tablet Take 1 tablet (20 mEq) by mouth Daily. MV & Min w/FA-DHA ( Adult Gummy/DHA/FA) 0.4-25 MG chewable tablet Chew. documented as of this encounter Plan of Treatment Upcoming Encounters Date Type Department Care Team (Late st Contact Info) Description 09/29/2025 8:40 AM EST Office Visit [facility] [place] [address] [facility], [address] [place] [address] Abdirizak Umanzor MD [address] [place] [address] documented as of this encounter Procedures Procedure Name Priority Date/Time Associated Diagnosis Comments CT ABDOMEN W IV CONTRAST Routine 04/01/2025 3:02 PM EDT Elevated AFP Decompensated hepatic cirrhosis (CMS/HCC) documented in this encounter Results * CT Abdomen w [...] are consistent with and integrated into the [place] [employer] Liver Diseases [...] are consistent with and integrated into the [place] Associationfor the Study of Liver Diseases (AASLD) [...] signing this report, I, the attending physician, hussein I have personally reviewed the images/data for the aboveexamination(s) and agree with the final edited report. Drafted by Pennie Villalobos MD on 04/01/2025 3:14 PM Final report signed by Maxine Abernathy MD on 04/01/2025 11:45 PM Abdirizak Umanzor MD IMG CT PROCEDURES Final Result documented in this encounter Visit Diagnoses Diagnosis Elevated AFP Other nonspecific findings on examination of blood Decompensated hepatic cirrhosis (CMS/HCC) documented in this encounter Administered Medications Inactive Administered Medications - up to 3 most recent administrations Medication Order MAR Action Action Date Dose Rate Site iohexol (OMNIPaque) 350 MG/ML injection 100 mL 100 mL, Intravenous, Once in imaging, 1 dose, Starting on Fri04/01/25 at 1439, Until Fri04/01/25 at 1453, Routine, Imaging Protocol Orders Given 04/01/2025 2:53 PM EDT 100 mL documented in this encounter Additional Health Concerns Assessment Noted Time A fall risk assessment has been complete d for the patient 03/10/2025 8:52 AM EDT A Body Mass Index follow-up plan has been documented for the patient 03/10/2025 9:29 AM EDT documented as of this encounter Care Teams Pasta Press Operator Relationship Specialty Start Date End Date Temo Fox MD PCP - General Family Medicine 09/29/23 Cherie Pathak, HOME CARE ADMINISTRATOR [address] [place] [address] [place] [address] Referring Physician Gastroenterology 09/29/23 documented as of this encounter
[2025-04-22 17:49] LABS: T4 (Thyroxine) 9.2 ug/dl (5.53-11.0)
[2025-04-22 18:03] LABS: Thyroid Stimulating Hormone 1.01 uIU/mL (0.465-4.68)
[2025-04-22 18:20] LABS: Hepatitis C Ab Qual. W/ RFX NEGATIVE (Negative)
[2025-04-24 09:20] LABS: Hepatitis B Surface Antigen Negative (Negative)
--- OUTSIDE RECORDS SUMMARY | 2025-04-25 10:51 | XMS_ITS | Encounter Summary ---
Author Organization [facility] Address [address] [id number] Care Team Providers Care Commissioned Police Officer Name Role Phone Temo Fox MD Primary Care Provider Cherie Pena CONCRETE VAULT MAKER Unavailable [phone] Reason for Visit * Reason Comments Med Refill Encounter Details Date Type Department Care Team (Late st Contact Info) Description 02/22/2024 Refill [facility] [address] [facility] [address] [place] [address] Jacquie Parra MD [address] [place] [address] Social History Tobacco Use Types Packs/Day Years Used Date Smoking Tobacco: Never Smokeless Tobacco: Never Alcohol Use Standard Drinks/Week Comments No 0 (1 standard drink = 0.6 oz pur e alcohol) PHQ-2 Answer Date Recorded Patient Health Questionnaire-2 Score 0 01/27/2024 Comments Unknown Sex and Gender Information Value Date Recorded Sex Assigned at Not on file Legal Sex Female 7:56 PM EDT Gender Identity Not on file Sexual Orientation Not on file documented as of this encounter Miscellaneous Notes * Telephone Encounter - Jacquie Parra MD - 02/24/2024 12:54 PM EDT Patient needs to follow with PCP for further refills. documented in this encounter Plan of Treatment Upcoming Encounters Date Type Department Care Team (Late st Contact Info) Description 09/29/2025 8:40 AM EST Office Visit [facility] [place] [address] [facility], [address] [place] [address] Abdirizak Umanzor MD [address] [place] [phone] documented as of this encounter Visit Diagnoses Not on filedocumented in this encounter Additional Health Concerns Assessment Noted Time A fall risk assessment has been complete d for the patient 01/27/2024 8:41 AM EDT A Body Mass Index follow-up plan has been documented for the patient 01/28/2024 2:04 PM EDT documented as of this encounter Care Teams Commissioned Police Officer Relationship Specialty Start Date End Date Temo Fox MD PCP - General Family Medicine 09/29/23 Cherie Pathak, CONCRETE VAULT MAKER [address] [place] [address] [address] [place] [address] Referring Physician Gastroenterology 09/29/23 documented as of this encounter
--- OUTSIDE RECORDS SUMMARY | 2025-04-25 10:51 | XMS_ITS | Encounter Summary ---
Author Organization [facility] Address [address] [id number] Care Team Providers Care Ip Architect Name Role Phone Temo Fox MD Primary Care Provider Cherie Pena PARKING LOT ATTENDANT Unavailable [phone] Reason for Visit * Reason Comments Med Refill Encounter Details Date Type Department Care Team (Late st Contact Info) Description 03/29/2024 Refill [place] [facility] [address] [facility] [address] [place] [address] Jacquie Parra MD [address] [place] [address] Social History Tobacco Use Types Packs/Day Years [...] Telephone Encounter - Jacquie Parra MD - 04/06/2024 12:10 PM EDT Patient needs to follow with PCP for further management of low potassium. documented in this encounter Plan of Treatment Upcoming Encounters Date Type Department Care Team (Late st Contact Info) Description 09/29/2025 8:40 AM EST Office Visit [facility] [place] [address] [facility], [address] [place] [address] Abdirizak Umanzor MD [address] [place] [phone] documented as of this encounter Visit Diagnoses Not on filedocumented in this encounter Additional Health Concerns Assessment Noted Time A fall risk assessment has been complete d for the patient 01/27/2024 8:41 AM EDT A Body Mass Index follow-up plan has been documented for the patient 01/28/2024 2:04 PM EDT documented as of this encounter Care Teams Ip Architect Relationship Specialty Start Date End Date Temo Fox MD PCP - General Family Medicine 09/29/23 Cherie Pathak APRN [address] [place] [address] [address] [place] [address] Referring Physician Gastroenterology 09/29/23 documented as of this encounter
--- OUTSIDE RECORDS SUMMARY | 2025-04-25 10:51 | XMS_ITS | Clinical Summary ---
Author Organization [employer] ([place], [place], [place], [place]) Address [address] [place] [address] Care Team Providers Care Fire Prevention Bureau Captain Name Role Phone Temo Fox MD Primary Care Provider [phone] Allergies Active Allergy Reactions Criticality Noted Date Comments Amoxicillin-Pot Clavulanate 07/22/20 23 Hydrocodone-Acetaminophen 07/22/2023 Medications folic acid (FOLVITE) 1 MG tablet Take 1 tablet (1 mg total) by mouth daily. Active omeprazole (PriLOSEC) 20 MG capsule Take 1 capsule (20 mg total) by mouth daily. Active levothyroxine (SYNTHROID, LEVOTHROID) 100 MCG tablet Take 1 tablet (100 mcg total) by mouth Every morning on an empty stomach. Active albuterol HFA (VENTOLIN HFA) 90 mcg/actuation inhaler Inhale 1 puff by mouth via inhaler every 6 (six) hours as needed. Active PNV 19/iron ps,heme/folic/d sullivan ( MV & MIN ORAL) Take 1 each by mouth daily. Active fLUoxetine (PROzac) 10 MG capsule Take 1 capsule (10 mg total) by mouth daily. 4 Active furosemide (LASIX) 40 MG tabletIndicatio ns:Hypertension , unspecified type Take 1 tablet by mouth once daily 90 tablet 4 Active potassium chloride (KLOR-CON) 20 MEQ tabletIndicatio ns:Hypokalemia Take 1 tablet by mouth once daily 90 tablet 5 Active spironolactone (ALDACTONE) 25 MG tabletIndicatio ns:Hypertension , unspecified type Take 1 tablet by mouth once daily 90 tablet Active spironolactone (ALDACTONE) 25 MG tabletIndicatio ns:Hypertension , unspecified type Take 1 tablet by mouth once daily 90 tablet 5 025 Discontinued Active Problems Problem Noted Date Diagnosed Date Low blood potassium 04/19/2024 Anxiety 04/19/2024 Depression 04/19/2024 History of DVT (deep vein thrombosis) 04/19/2024 Varicose veins of calf 04/19/2024 Shortness of breath 04/19/2024 Hemochromatosis 09/02/2023 Fibromyalgia 10/08/2021 Sjogren's syndrome 10/08/2021 Muscle cramps 07/09/2021 Factor V Leiden mutation 07/04/2021 Hypertension 07/04/2021 Obesity 07/04/2021 Allodynia 03/06/2021 Chronic pain 03/06/2021 Chest pain 12/27/2020 Synovial hypertrophy 12/05/2020 Cardiac arrhythmia 10/02/2020 Palpitations 10/02/2020 Wide QRS ventricular tachycardia 09/29/2020 Abnormal electrocardiography 08/25/2020 Hypothyroidism 08/25/2020 Other diseases of salivary glands 05/02/2020 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 05/02/2020 Encounters Date Type Department Care Team Description 04/08/[address] [address] Verito Gill PA-C Hypertension, unspecified type 03/17/[address] [address] Verito Gill PA-C Hypokalemia from Last 3 Months Family History Medical History Relation Name Comments Coronary artery disease Father Heart failure Father Breast cancer Mother Bipolar disorder Other Coronary artery disease Other DAYLIN disease Other Heart failure Other Hypertension Other Lung disease Other Rheum arthritis Other Relation Name Status Comments Father Mother Other Social History Tobacco Use Types Packs/Day Years Used Date Smoking Tobacco: Never Smokeless Tobacco: Never Tobacco Cessation:Counseling Given: Not Answered Alcohol Use Standard Drinks/Week Comments Never 0 (1 standard drink = 0.6 oz pur e alcohol) caffeine use Food Insecurity Answer Date Recorded Food run out past 12 months Not on file 10/13 Food did not last past 12 months Not on file 10/22/2023 Employment Answer Date Recorded Help finding and keeping a job Not on file 0 10/22/2023 Family and Community Support Answer Michael e Recorded Help with Day to Day Activities Not on file 10/22/2023 Feeling Lonely or Isolated Not on file 10/22 Educational Attainment Answer Date Peyman rded Speak language other than Israeli at home Not on file 10/22/2023 Want help with school or training Not on file 10/22/2023 Substance Use Answer Date Recorded Used prescription meds for non-medical reasons N ot on file 10/22/2023 Used illegal drugs past 12 months Not on file 10/22/2023 Comments Unknown Sex and Gender Information Value Date Recorded Sex Assigned at Not on file Legal Sex Female 5:18 PM CDT Gender Identity Not on file Sexual Orientation Not on file Last Filed Vital Signs Vital Sign Reading Time Taken Comments Blood Pressure 100/80 04/19/2024 10:57 AM EDT Pulse 53 04/19/2024 10:57 AM EDT Temperature - - Respiratory Rate 20 04/19/2024 10:57 AM EDT Oxygen Saturation 98% 04/19/2024 10:57 AM EDT Inhaled Oxygen Concentration - - Weight 66.2 kg (146 lb) 04/19/2024 10:57 AM EDT Height 160 cm (5' 3 ) 04/19/2024 10:57 AM EDT Body Mass Index 25.86 04/19/2024 10:57 AM EDT Plan of Treatment Health Maintenance Due Date Last Done Comments CT Colonography 1963 Colonoscopy 1963 Colorectal Cancer Screening 1963 FOBT/FIT 1963 Fit-DNA (Cologuard) 1963 Sigmoidoscopy 1963 HIV Screening 1978 Hepatitis C Screening 1981 Pap Smear 1984 Breast Cancer Screening 2003 Lipid Panel 2008 Pneumococcal 50+ years (2 of 2 - PCV) 06/04/201310/2011 Shingles Vaccine (Zoster) (1 of 2) 2013 Medicare Initial AWV [id number] 10/14/2022 Respiratory Syncytial Virus (RSV) Adult or (1 - Risk 60-74 years 1-dose series) 2023 COVID-19 VACCINE (2023- season) 2024 08/30/2021, 01/04/2021, 12/07/2020 DTAP/TDAP/TD VACCINES (2 - T d or Tdap) 09/15/2024 09/15/2014 Tobacco Cessation Counseling and Screening (12+) 04/19/2025 04/19/2024 Influenza Vaccine (#1) 2025 Insurance [facility] [employer] Care Teams Fire Prevention Bureau Captain Relationship Specialty Start Date End Date Temo Fox MD [address] [place] [address] [place] [address] PCP - General Family Medicine 07/23/23
--- OUTSIDE RECORDS SUMMARY | 2025-04-25 10:51 | XMS_ITS | Encounter Summary ---
Author Organization Healthcare Address [address] [place] [address] Care Team Providers Care Experimental Aircraft Mechanic Name Role Phone Temo Fox MD Primary Care Provider Cherie Pena CATALOGUE AND SPECIAL PRODUCTS MANAGER Unavailable [phone] Encounter Details Date Type Department Care Team (Latest Contact Info) Description 03/03/2025 Travel Social History Tobacco Use Types Packs/Day Years Used Date Smoking Tobacco: Never Smokeless Tobacco: Never Alcohol Use Standard Drinks/Week Comments No 0 (1 standard drink = 0.6 oz pur e alcohol) PHQ-2 Answer Date Recorded Patient Health Questionnaire-2 Score 0 05/12/2024 Comments Unknown Sex and Gender Information Value Date Recorded Sex Assigned at Not on file Legal Sex Female 7:56 PM EDT Gender Identity Not on file Sexual Orientation Not on file documented as of this encounter Plan of Treatment Upcoming Encounters Date Type Department Care Team (Late st Contact Info) Description 09/29/2025 8:40 AM EST Office Visit [facility] [place] [address] [facility], [address] [place] [address] Abdirizak Umanzor MD [address] [place] [address] documented as of this encounter Visit Diagnoses Not on filedocumented in this encounter Additional Health Concerns Assessment Noted Time A fall risk assessment has been complete d for the patient 05/12/2024 12:53 PM EDT A Body Mass Index follow-up plan has been documented for the patient 05/14/2024 1:05 AM EDT documented as of this encounter Care Teams Experimental Aircraft Mechanic Relationship Specialty Start Date End Date Temo Fox MD PCP - General Family Medicine 09/29/23 Cherie Pathak APRN [address] [place] [address] Dr Martines [address] [place], [place] [id number] Referring Physician Gastroenterology 09/29/23 documented as of this encounter
--- OUTSIDE RECORDS SUMMARY | 2025-04-25 10:51 | XMS_ITS | Referral Summary ---
Author Organization [employer] ([place], [place], [place], [place]) Address [address] [place] [address] Care Team Providers Care Paint Tester Name Role Phone Temo Fox MD Primary Care Provider [phone] Encounters Date Type Department Care Team Description 04/08/[address] [address] Verito Gill PA-C Hypertension, unspecified type 03/17/[address] [address] Verito Gill PA-C Hypokalemia from Last 3 Months Allergies Active Allergy Reactions Criticality Noted Date Comments Amoxicillin-Pot Clavulanate 07/22/20 Hydrocodone-Acetaminophen 07/22/2023 Medications folic acid (FOLVITE) 1 [...] to hyposecretion of salivary glan d 05/02/2020 Social History Tobacco Use Types Packs/Day Years [...] and keeping a job Not on file 10/22/2023 Family and Community Support Answer Michael e Recorded Help with Day to Day Activities Not on file 10/22/2023 Feeling Lonely or Isolated Not on file 10/22 Educational Attainment Answer Date Peyman rded Speak language other than Uruguayan at home Not on file 10/22/2023 Want [...] 04/19/2024 10:57 AM EDT Plan of Treatment Not on file [facility] Care Teams Paint Tester Relationship Specialty Start Date End Date Temo Fox MD [address] [place] [address] [place] [address] PCP - General Family Medicine 07/23/23
--- OUTSIDE RECORDS SUMMARY | 2025-04-25 10:51 | XMS_ITS | Encounter Summary ---
Author Organization [facility] Address [address] [place] [address] Care Team Providers Care Marketing And Outreach Coordinator Name Role Phone Temo Fox MD Primary Care Provider Bree Cherie Riojas GENERAL SUPERINTENDENT Unavailable [phone] Encounter Details Date Type Department Care Team ([facility] st Contact Info) Description 03/10/2025 Results Follow-Up [facility] [place] [address] [facility], [address] [place] [address] Abdirizak Umanzor MD [address] [place] [address] Social History Tobacco Use Types Packs/Day Years [...] as of this encounter Miscellaneous Notes * Result Encounter Note - Abdirizak Umanzor MD - 04/04/2025 9:[address] liver reviewed. No suspicious liver lesions. Repeat imaging in 6 months with US liver. * Result Encounter Note - Abdirizak Umanzor MD - 03/15/2025 11:47 AM EDT Daer , your AFP L3 (which is more specific for cancer) is negative. I think your AFP elevation is mostly due to liver inflammation. We do see it sometimes in patients with Fatty liver and other causes of liver inflammation. We can just repeat it next time. Pleas go ahead ad get your CTdone. documented in this encounter Plan of Treatment Upcoming Encounters Date Type Department Care Team (Late st Contact Info) Description 09/29/2025 8:40 AM EST Office Visit [facility] [place] [address] [facility], [address] [place] [address] Abdirizak Umanzor MD [address] [place] [address] documented as of this encounter Visit Diagnoses Not on filedocumented in this encounter Additional Health Concerns Assessment Noted Time A fall risk assessment has been complete d for the patient 03/10/2025 8:52 AM EDT A Body Mass Index follow-up plan has been documented for the patient 03/10/2025 9:29 AM EDT documented as of this encounter Care Teams Marketing And Outreach Coordinator Relationship Specialty Start Date End Date Temo Fox MD PCP - General Family Medicine 09/29/23 Cherie Pathak APRN [address] [place] [address] Dr Martines [address] [place] [address] Referring Physician Gastroenterology 09/29/23 documented as of this encounter
--- OUTSIDE RECORDS SUMMARY | 2025-04-25 10:51 | XMS_ITS | Encounter Summary ---
Author Organization [employer] ([place], [place], [place], [place]) Address [address] [place] [address] Care Team Providers Care Solar Energy Technician Name Role Phone Temo Fox MD Primary Care Provider [phone] Encounter Details Date Type Department Care Team (Late st Contact Info) Description 01/25/2021 Transcribed Document [facility] Family Medicine [facility] [place] [address] ProviderNolan MD [address] [place], [place] [address] Social History Tobacco Use Types Packs/Day Years Used Date Smoking Tobacco: Never Assessed Comments Unknown Sex and Gender Information Value Date Recorded Sex Assigned at Not on file Legal Sex Female 5:18 PM CDT Gender Identity Not on file Sexual Orientation Not on file documented as of this encounter Miscellaneous Notes * Cerner Conversion Note - Nolan Miranda MD - 01/25/2021 6:18 PM CDT DATE OF SERVICE: 01/20/2021 HOME SLEEP TEST TYPE 3 REPORT PRIMARY PROVIDER: Ramya Morrison. HISTORY: The patient is a 55-year-old, who was seen in clinic on 01/03/2021. Please see that note for details. She has a history of witnessed apneas, daytime somnolence. She has tachycardia and is severely overweight. She has mood problems and also complains of insomnia issues. She has Sjogren syndrome, fibromyalgia, rheumatoid arthritis, and hypertension. TECHNICAL SUMMARY: Continuous recording of pulse oximetry, heart rate, airflow and respiratory effort were recorded during the patient's habitual sleep time. Respiratory events were scored according to The AASM Manual for the Scoring of Sleep and Associated Events using the 1B 4% hypopnea rule. RESULTS: 1. The RDI is 29.6 respiratory events per hour. 2. She had 38 obstructive apneas and 133 hypopneas. 3. The index supine was 31.4. She was listed as sleeping upright for 205 minutes with an index of 23.3. This may be artifactual because the position sensors are not always accurate. 4. The minimum oxygen saturation was 72% with an average of 94%. 5. The mean heart rate was 70.1 with a maximum of 95. 6. Total recording time was 579.5 minutes. IMPRESSION: This home sleep test reveals: 1. The patient has severe obstructive sleep apnea with an index of 29.6 events per hour and a minimum oxygen saturation of 72%. 2. This study is technically adequate to make clinical decisions. 3. Note that home sleep studies tend to underestimate the true severity of sleep apnea. 4. Note that we did exclude 231 minutes of recording time because of poor oximetry signal. We did have almost 6 hours of adequate recording time, however. RECOMMENDATIONS: 1. Weight loss is recommended-BMI is 46. 2. The patient will be asked to start a trial of autoPAP 03/28. 3. She will be seen in followup at the [facility]. /[id number] MD NHI Bruno/AQ / NHI / MODL /[id number] CC: Ramya Morrison NP Electronically signed by [facility], [facility] Conversion Pv Design Engineer Cerner at 01/27/2023 1:28 PM CDT documented in this encounter Plan of Treatment Not on file documented as of this encounter Visit Diagnoses Not on filedocumented in this encounter Care Teams Solar Energy Technician Relationship Specialty Start Date End Date Temo Fox MD [address] [place] [address] [place] [address] PCP - General Family Medicine 07/23/23 documented as of this encounter
--- OUTSIDE RECORDS SUMMARY | 2025-04-25 10:51 | XMS_ITS | Encounter Summary ---
Author Organization [employer] ([place], [place], [place], [place]) Address [address] [place] [address] Care Team Providers Care Surtass Analyst Name Role Phone Temo Fox MD Primary Care Provider [phone] Encounter Details Date Type Department Care Team (Late st Contact Info) Description 01/03/2021 Transcribed Document [facility] [place] [address] ProviderNolan MD [address] [place], [place] [address] Social History Tobacco Use Types Packs/Day Years Used Date Smoking Tobacco: Never Assessed Comments Unknown Sex and Gender Information Value Date Recorded Sex Assigned at Not on file Legal Sex Female 5:18 PM CDT Gender Identity Not on file Sexual Orientation Not on file documented as of this encounter Miscellaneous Notes * Cerner Conversion Note - Nolan Miranda MD - 01/03/2021 2:00 PM CDT DATE OF SERVICE: 01/03/2021 SLEEP MEDICINE CONSULTATION PRIMARY CARE PROVIDER: Ramya Morrison. HISTORY OF PRESENT ILLNESS: This is a 55-year-old female, who presents for consultation regarding a history of nonrestorative sleep. She also has had an issue with increased and irregular heartbeats. She gets in bed at 11 p.m., but typically does not fall asleep until 1 a.m. She wakes up around 8 a.m. She says that she wakes up 2 to 4 times for unknown reasons. She averages 7 hours of sleep. She never takes naps during the day. She does snore loudly every night in all sleep positions. She wakes up with a dry mouth and gasping for air. She has been told by friends on previous girls trip that she quits breathing during the night. She has frequent morning headaches. She does experience reflux symptoms and is on reflux medication. She experiences fatigue and drowsiness during the day, although she scores 0/24 on the [place] Sleepiness Scale. She denies symptoms of narcolepsy including sleep paralysis, hallucinations, or cataplexy. She does have difficulty falling asleep and maintaining sleep. She says she has a couple pinched nerves in her neck and this does bother her and cause pain during the night. She has been sleeping in the recliner the last 3 to 4 years secondary to this as well as it improves her snoring, so she sleeps better. She denies symptoms of restless legs syndrome. She does note some periodic limb movement while sleeping and has woke up to her legs jerking during her sleep. She also has woke up screaming from dreams. PAST MEDICAL HISTORY: Anxiety, depression, bipolar syndrome, hypertension, irregular heart beats, GI reflux, Sjogren syndrome, fibromyalgia, rheumatoid arthritis. SURGICAL HISTORY: Broken nose, cholecystectomy, tubal ligation. FAMILY HISTORY: Diabetes, heart disease, hypertension, restless legs, father. REVIEW OF SYSTEMS: Twelve-system review of systems was obtained on the intake questionnaire and pertinent positives noted. SOCIAL HISTORY: The patient is . Her in July 2020. She is disabled and no longer working. She does not use tobacco products or drink alcoholic beverages. She has up to 3 caffeinated beverages daily. MEDICATIONS: 1. Synthroid. 2. Lisinopril. 3. Rosuvastatin. 4. Duloxetine. 5. Fluoxetine. 6. Omeprazole. 7. Pregabalin. 8. Carvedilol. 9. Folic acid. 10. Vitamin D3. 11. Leflunomide. DRUG ALLERGIES: Percocet causes vomiting. PHYSICAL EXAMINATION: VITAL SIGNS: [place] 0/24, height 63 inches, weight 259, BMI 46. Neck circumference 17 inches. Respirations 18, oxygen saturation 96%, blood pressure 123/57, heart rate 73. GENERAL: This is a pleasant female, in no distress. HEENT: Pupils are equal and round. Exam of the oropharynx demonstrates a full upper denture, Mallampati type 4 appearance, scalloping along the tongue edges. Enlarged uvula. External nose normal. Nasal airway patent. NECK: Without palpable adenopathy. LUNGS: Clear to auscultation. HEART: Regular rate and rhythm without murmurs. EXTREMITIES: Without clubbing, cyanosis. There is trace edema in bilateral ankles. PSYCH: The patient is cooperative, alert and oriented x3. Mood and affect appropriate. IMPRESSION: 1. Snoring with witnessed apneas. 2. Daytime somnolence. 3. Insomnia. The patient says it can take hours for her to fall asleep at night. 4. History of tachycardia and irregular heart beats. 5. Morbid obesity. Body mass index of 47 with an increased neck circumference of 17 inches. 6. Bipolar syndrome. RECOMMENDATIONS: 1. Sleep testing. We will obtain a home sleep study. This will be read by Dr. Edwardo Patterson. 2. Data reviewed, external record sent by Ramya Morrison APRN. 3. Physiological implications of obstructive sleep apnea and the need for treatment if indicated discussed today. The patient is willing to try positive airway pressure therapy if needed. 4. We discussed the likelihood of an underlying JOSEPH. I do feel this is very likely in this patient given her history and physical exam today. 5. Encourage weight loss. 6. She may have multiple underlying sleep issues including an JOSEPH in addition to insomnia, but in some patients, insomnia does improve once we are treating an underlying JOSEPH. 7. Follow up after her sleep study has been interpreted. If she is initiated on positive airway pressure therapy, [facility] 8 [facility] 10 weeks to document compliance and monitor response to therapy. /[id number] Nika Valle APRN HH/AQ / HH / MODL /[id number] CC: Ramya Morrison Electronically signed by [facility], [facility] Conversion Measurement Coordinator Cerner at 01/27/2023 1:34 PM CDT documented in this encounter Plan of Treatment Not on file documented as of this encounter Visit Diagnoses Not on filedocumented in this encounter Care Teams Surtass Analyst Relationship Specialty Start Date End Date Temo Fox MD [address] [place] [address] PCP - General Family Medicine 07/23/23 documented as of this encounter
--- OUTSIDE RECORDS SUMMARY | 2025-04-25 10:51 | XMS_ITS | Encounter Summary ---
Author Organization Healthcare Address [address] [place] [address] Care Team Providers Care Binding Stitcher Name Role Phone Temo Fox MD Primary Care Provider Cherie Pena SUPPORT ANALYST Unavailable [phone] Encounter Details Date Type Department Care Team (Latest Contact Info) Description 04/01/2025 Travel Social History Tobacco Use Types Packs/Day [...] AM EST Office Visit [facility] [place] [address] [facility], [address] [place] [address] Abdirizak Umanzor MD [address] [place] [address] documented as of this encounter Visit Diagnoses Not on filedocumented in this encounter Additional Health Concerns Assessment Noted Time A fall risk assessment has been complete d for the patient 03/10/2025 8:52 AM EDT A Body Mass Index follow-up plan has been documented for the patient 03/10/2025 9:29 AM EDT documented as of this encounter Care Teams Binding Stitcher Relationship Specialty Start Date End Date Temo Fox MD PCP - General Family Medicine 09/29/23 Cherie Pathak APRN [address] [place] [address] Dr Mart[address] [place], [place] [id number] Referring Physician Gastroenterology 09/29/23 documented as of this encounter
--- OUTSIDE RECORDS SUMMARY | 2025-04-25 10:51 | XMS_ITS | Encounter Summary ---
Author Organization Healthcare Address [address] [place] [address] Care Team Providers Care Product Owner Name Role Phone Temo Fox MD Primary Care Provider Cherie Pena DE ALCHOLIZER Unavailable [phone] Encounter Details Date Type Department Care Team (Latest Contact Info) Description 03/25/2025 Travel Social History Tobacco Use Types Packs/Day [...] AM EST Office Visit [facility] [place] [address] [facility], [address] [place] [address] Abdirizak Umanzor MD [address] [place] [address] documented as of this encounter Visit Diagnoses Not on filedocumented in this encounter Additional Health Concerns Assessment Noted Time A fall risk assessment has been complete d for the patient 03/10/2025 8:52 AM EDT A Body Mass Index follow-up plan has been documented for the patient 03/10/2025 9:29 AM EDT documented as of this encounter Care Teams Product Owner Relationship Specialty Start Date End Date Temo Fox MD PCP - General Family Medicine 09/29/23 Cherie Pathak APRN [address] [place] [address] Dr [address] [place], [place] [id number] Referring Physician Gastroenterology 09/29/23 documented as of this encounter
--- OUTSIDE RECORDS SUMMARY | 2025-04-25 10:51 | XMS_ITS | Encounter Summary ---
Author Organization [employer] ([place], [place], [place], [place]) Address [address] [place] [address] Care Team Providers Care Ion Implant Machine Operator Name Role Phone Temo Fox MD Primary Care Provider [phone] Reason for Visit * Reason Comments Medication Refill Encounter Details Date Type Department Care Team (Late st Contact Info) Description 04/08/2025 Refill [facility] - [place] [address] [place] [address] Verito Gill PA-C [address] [address] Hypertension, unspecified type Social History Tobacco Use Types Packs/Day Years Used Date Smoking Tobacco: Never Smokeless Tobacco: Never Alcohol Use Standard Drinks/Week Comments Never 0 [...] Date Peyman rded Speak language other than Lithuanian at home Not on file 10/22/2023 Want [...] as of this encounter Plan of Treatment Not on file documented as of this encounter Visit Diagnoses Diagnosis Hypertension, unspecified type documented in this encounter Care Teams Ion Implant Machine Operator Relationship Specialty Start Date End Date Temo Fox MD [address] [place] [address] PCP - General Family Medicine 07/23/23 documented as of this encounter
--- OUTSIDE RECORDS SUMMARY | 2025-04-25 10:51 | XMS_ITS | Clinical Summary ---
Author Organization [facility] Address [address] [place] [address] Care Team Providers Care Paraprofessional Education Assistant Name Role Phone Temo Fox MD Primary Care Provider Cherie Pena HOUSE MOVER HELPER Unavailable [phone] Allergies Active Allergy Reactions Criticality Noted Date Comments Amoxicillin-Pot Clavulanate Vomiting 07/22/20 Hydrocodone Other - please docum ent in the comment field Low 08/28/2022 Latex Other - please docum ent in the comment field Low 06/05/2018 Blisters Hydrocodone-Acetaminophen Unknown - Kaylin ent states they do not know rxn details Low 12/14/2013 Oxycodone-Acetaminophen Other - please d ocument in the comment field Low 01/30/2021 Wound Dressing Adhesive Other - please d ocument in the comment field Low 02/27/2021 Blisters Medications biotin 1000 MCG tablet Active B Complex-Biotin- FA (B Complex 100 TR) tablet controlled-rele ase Active folic acid (Folvite) 1 MG tablet Take 1 tablet (1,000 mcg) by mouth 1 (one) time each day. Active furosemide (Lasix) 40 MG tablet Take 1 tablet (40 mg) by mouth 1 (one) time each day. 10/22/2023 Active levothyroxine (Synthroid, Levoxyl) 100 MCG tablet TAKE 1 TABLET BY MOUTH ONCE DAILY FOR THYROID 10/04/2023 Active FLUoxetine (PROzac) 10 MG capsule Active spironolactone (Aldactone) 50 MG tablet Take 1 tablet (50 mg) by mouth 1 (one) time each day. 30 each 11 10/28/2023 Active MV & Min w/FA-DHA ( Adult Gummy/DHA/FA) 0.4-25 MG chewable tablet Chew. Acti ve potassium chloride CR (Klor-Con M20) 20 MEQ ER tablet Take 1 tablet (20 mEq) by mouth Daily. Active pantoprazole (Protonix) 40 MG EC tablet Take 1 tablet by mouth daily. Active ondansetron (Zofran) 4 MG tablet Active ibuprofen 600 MG tablet Take 1 tablet by mouth 2 times a day. Active FeroSul 325 (65 Fe) MG tablet Take 1 tablet by mouth daily. 12/20/2024 Active Eliquis 2.5 MG tablet Take 1 tablet by mouth 2 times a day. 01/26/2025 Active Active Problems Problem Noted Date Diagnosed Date Carrier of hemochromatosis HFE gene mutation Encounters Date Type Department Care Team Description 04/01/2025 2:35 PM EDT - 04/01/2025 11:59 PM EDT Hospital Encounter [facility] [address] [place] [address] Elevated AFP; Decompensated hepatic cirrhosis (CMS/HCC) Discharge Disposition: Home or Self Care 04/01/2025 Travel 03/25/2025 Travel 03/10/2025 9:00 AM EDT [facility] [address], [address] [place] [phone] Abdirizak Umanzor MD Elevated AFP (Primary Dx); Decompensated hepatic cirrhosis (CMS/HCC); Carrier of hemochromatosis HFE gene mutation 03/10/2025 Results [facility] [address], [address] [place] [address] Abdirizak Umanzor MD 03/10/2025 Travel 03/03/2025 Travel from Last 3 Months Immunizations Immunization Administration Dates Next Due Hep A / Hep B 02/11/2024,09/11/2023,08/12/2023 Influenza, Unspecified 09/08/2023 Influenza, injectable, quadr ivalent, preservative free 07/12/2023,07/06/2022,07/07/2021 Influenza, seasonal, injectable 07/06/2016,08/13,10/13/2012 Influenza, seasonal, injecta ble, preservative free 09/28/2024 Pneumococcal 20-suleman Conj Vaccine 08/12/2023 Pneumococcal Polysaccharide PPV23 10/13/2011 Tdap 09/15/2014 Family History Medical History Relation Name Comments Arthritis Father Benny Hearing loss Father Benny Heart failure Father Benny Arthritis Mother Slime Breast cancer Mother Slime Cardiac disorder Other 1 Diabetes Other 2 Arthritis Sister 1 Slime Asthma Sister 1 Slime Diabetes Sister 1 Slime Obesity Sister 1 Slime Diabetes Sister 2 Ivan Hypothyroidism Sister 3 Relation Name Status Comments Father Benny Mother Slime Other 1 Other 2 Sister 1 Slime Sister 2 Ivan Sister 3 Social History Tobacco Use Types Packs/Day Years Used Date Smoking Tobacco: Never Smokeless Tobacco: Never Tobacco Cessation:Counseling Given: Not Answered Alcohol Use Standard Drinks/Week Comments No 0 [...] F) 03/10/2025 8:52 AM EDT Respiratory Rate 16 01/27/2024 8:40 AM EDT Oxygen Saturation 97% 03/10/2025 8:52 AM EDT Inhaled Oxygen Concentration - - Weight 75.4 kg (166 lb 3.6 oz) 03/10/2025 8:52 A M EDT Height 160 cm (5' 3 ) 03/10/2025 8:52 AM EDT Body Mass Index 29.45 03/10/2025 8:52 AM EDT Plan of Treatment Upcoming Encounters Date Type Department Care Team (Late st Contact Info) Description 09/29/2025 8:40 AM EST [facility] [place] [address] [facility], [address] [place] [address] Abdirizak Umanzor MD [address] [place] [id number] Health Maintenance Due Date Last Done Comments [facility]-HIV Screening 1965 [facility]-Medicare Annual Wellness (AWV) 1965 [facility]-/Child/Adol SDOH Screenings 1963 [facility]- SDOH Screenings 1981 [facility]-Adult SDOH Screenings 1981 [facility]-Pap Smear 1984 [facility]-Cervical Cancer Screening 1993 [facility]-HPV/Cotest 1993 CT Colonography 2008 Colonoscopy 2008 FIT-DNA 2008 FIT 2008 FOBT 2008 Sigmoidoscopy 2008 [facility]-Colorectal Cancer Screening 2008 [facility]-Breast Cancer Screening 2013 [facility]-Zoster Vaccines (1 of 2) 2013 [facility]-RSV Vaccine: 60+ Years or (1 - Risk 60-74 years 1-dose series) 2023 [id number] Vaccine (4 - 2023- season) 2024 08/30/2021, 01/04/2021, 12/07/2020 [facility]-DTaP,Tdap,and Td Vaccines (2 - Td or Tdap) 09/15/2024 09/15/2014 [facility]-Depression Screening 05/12/2025 05/12/2024 [facility]-Influenza Vaccine (#1) 06/13/202509/28, 09/08/2023, 07/12/2023, Additional history exists [facility]-Pneumococcal Vaccine: 50+ Years Completed 08/12/2023, 10/13/2011 [facility]-Hepatitis C Screening Completed 10/28/2023 [facility]-Hepatitis A Vaccines Completed 024, 09/11/2023, 08/12/2023 [facility]-Obesity Intervention Completed 025, 05/12/2024, 05/12/2024, Additional history exists HPV Vaccines Aged Out No longer eligi ble based on patient's age to complete this topic [facility]-HIB Vaccines Aged Out No longer e ligible based on patient's age to complete this topic [facility]-IPV Vaccines Aged Out No longer e ligible based on patient's age to complete this topic [facility]-Rotavirus Vaccines Aged Out No lo nger eligible based on patient's age to complete this topic Procedures Procedure Name Priority Date/Time Associated Diagnosis Comments CT ABDOMEN W IV CONTRAST Routine 04/01/2025 3:02 PM EDT Elevated AFP Decompensated hepatic cirrhosis (CMS/HCC) COMPREHENSIVE METABOLIC PANEL, PLASMA Routine 03/10/2025 9:40 AM EDT Decompensated hepatic cirrhosis (CMS/HCC) CBC WITH AUTO DIFFERENTIAL Routine 03/10/2025 9:40 AM EDT Decompensated hepatic cirrhosis (CMS/HCC) PROTHROMBIN TIME(PT) / INR Routine 03/10/2025 9:40 AM EDT Decompensated hepatic cirrhosis (CMS/HCC) ALPHA FETOPROTEIN, SERUM Routine 03/10/2025 9:40 AM EDT Elevated AFP Decompensated hepatic cirrhosis (CMS/HCC) MISCELLANEOUS LAB TEST (SO) Routine 03/10/2025 9:40 AM EDT Elevated AFP Decompensated hepatic cirrhosis (CMS/HCC) HEPATITIS C ANTIBODY W/REFLEX TO HCV QUANT PCR Routine 10/28/2023 7:43 AM EST End-stage liver disease (CMS/HCC) from Last 3 Months or Most Recently Relevant to Health Maintenance Results * CT Abdomen w IV Contrast [...] are consistent with and integrated into the [employer] the [employer] Liver Diseases [...] are consistent with and integrated into the [employer] Associationfor the Study of Liver Diseases (AASLD) [...] on 04/01/2025 11:45 PM Abdirizak Umanzor MD IM CT PROCEDURES Final Result * (ABNORMAL) Alpha Fetoprotein, Serum (03/10/2025 9:40 AM EDT) Alpha Fetoprotein, Serum 11.4(H) <10.0 ng/mL 03/10/2025 3:22 PM EDT [facility] Blood Venous blood specimen / Unknown Venipuncture / Unknown 03/10/2025 9:40 AM EDT 03/10/2025 9:40 AM EDT Narrative [facility] - 03/10/2025 3:22 PM EDT Performed by Barbi electrochemiluminescent immunoassay which is traceable to the 1st AFP IRP WHO Reference standard 72/255. Results obtained with different test methods or kits cannot be used interchangeably. Abdirizak Umanzor MD LAB BLOOD ORDERABLES Final Res ult Performing Organization Address [facility] Co de Phone Number [facility] [address] [place] [address] * AFP L3; No; Immediate - Miscellaneous Test (03/10/2025 9:40 AM EDT) Test name AFP L3 03/14/2025 9:18 AM EDT [facility] Test Result see scanned document 03/14/2025 9:18 AM EDT [facility] See Scanned Result 03/14/2025 9:18 AM EDT [facility] Blood Venipuncture / Unknown 03/10/2025 9:40 AM EDT 03/10/2025 9:40 AM EDT Abdirizak Umanzor MD LAB REF LAB BLOOD AND FLUID OR D Final Result Performing Organization Address [facility] de Phone Number [facility] [address] [place] [address] * (ABNORMAL) Prothrombin Time/INR (03/10/2025 9:40 AM EDT) Prothrombin Time 14.6(H) 12.0 - 14.3 sec 03/10/2025 11:45 AM EDT [facility] INR 1.1 0.9 - 1.1 03/10/2025 11:45 AM EDT [facility] Blood Venous blood specimen / Unknown Venipuncture / Unknown 03/10/2025 9:40 AM EDT 03/10/2025 9:40 AM EDT Narrative [facility] - 03/10/2025 11:45 AM EDT OPTIMAL INR RANGES FOR PATIENT ON ORAL ANTICOAGULANT THERAPY Prevention of venous thromboembolism INR 2.0 to 3.0 In patients with heart disease: Atrial fibrillation INR 2.0 to 3.0 Valvular heart disease INR 2.0 to 3.0 Tissue heart valves INR 2.0 to 3.0 Mechanical prosthetic valves INR 2.5 to 3.5 Prevention of recurrent PR INR 2.5 to 3.5 us Abdirizak Umanzor MD LAB BLOOD ORDERABLES Final Res ult [facility] [address] [place] [address] * (ABNORMAL) CBC and Differential (03/10/2025 9:40 AM EDT) [facility] Signature WBC Count 5.31 3.70 - 10.30 10*3/uL LAB HEMATOLOGY METHOD 03/10/2025 11:40 AM EDT [facility] RBC Count 4.11 3.90 - 5.20 10*6/uL LAB HEMATOLOGY METHOD 03/10/2025 11:40 AM EDT [facility] HGB 14.2 11.2 - 15.7 g/dL LAB HEMATOLOGY METHOD 03/10/2025 11:40 AM EDT [facility] HCT 41.3 34.0 - 45.0 % LAB HEMATOLOGY METHOD 03/10/2025 11:40 AM EDT [facility] Platelet Count 233 155 - 369 10*3/uL LAB HEMATOLOGY METHOD 03/10/2025 11:40 AM EDT [facility] MCV 101(H) 79 - 98 fL LAB HEMATOLOGY METHOD 03/10/2025 11:40 AM EDT [facility] MCH 34.5(H) 26.0 - 32.0 pg LAB HEMATOLOGY METHOD 03/10/2025 11:40 AM EDT [facility] MCHC 34.4 30.7 - 35.5 g/dL LAB HEMATOLOGY METHOD 03/10/2025 11:40 AM EDT [facility] RDW 13.4 11.5 - 14.5 % LAB HEMATOLOGY METHOD 03/10/2025 11:40 AM EDT [facility] MPV 9.8 8.8 - 12.5 fL LAB HEMATOLOGY METHOD 03/10/2025 11:40 AM EDT [facility] nRBC 0.0 <=0.0 per 100 WBCs LAB HEMATOLOGY METHOD 03/10/2025 11:40 AM EDT [facility] Differential Type Automated LAB HEMATOLOGY METHOD 03/10/2025 11:40 AM EDT [facility] Neutrophils % 61 % LAB HEMATOLOGY METHOD 03/10/2025 11:40 AM EDT [facility] Lymphocytes % 25 % LAB HEMATOLOGY METHOD 03/10/2025 11:40 AM EDT [facility] Monocytes % 10 % LAB HEMATOLOGY METHOD 03/10/2025 11:40 AM EDT [facility] Eosinophils % 4 % LAB HEMATOLOGY METHOD 03/10/2025 11:40 AM EDT [facility] Basophils % 0 % LAB HEMATOLOGY METHOD 03/10/2025 11:40 AM EDT [facility] Immature Granulocytes % 0 % LAB HEMATOLOGY METHOD 03/10/2025 11:40 AM EDT [facility] Neutrophils Absolute 3.19 1.60 - 6.10 10*3/uL LAB HEMATOLOGY METHOD 03/10/2025 11:40 AM EDT [facility] Lymphocytes Absolute 1.32 1.20 - 3.90 10*3/uL LAB HEMATOLOGY METHOD 03/10/2025 11:40 AM EDT [facility] Monocytes Absolute 0.55 0.30 - 0.90 10*3/uL LAB HEMATOLOGY METHOD 03/10/2025 11:40 AM EDT [facility] Eosinophils Absolute 0.23 0.00 - 0.50 10*3/uL LAB HEMATOLOGY METHOD 03/10/2025 11:40 AM EDT [facility] Basophils Absolute 0.00 0.00 - 0.10 10*3/uL LAB HEMATOLOGY METHOD 03/10/2025 11:40 AM EDT [facility] Immature Granulocytes Absolute 0.02 0.00 - 0.06 10*3/uL LAB HEMATOLOGY METHOD 03/10/2025 11:40 AM EDT [facility] Blood Venous blood specimen / Unknown Venipuncture / Unknown 03/10/2025 9:40 AM EDT 03/10/2025 9:40 AM EDT [facility] - 03/10/2025 11:40 AM EDT Therapeutic decision making should be based on absolute values, rather than percentages. us Abdirizak Umanzor MD LAB BLOOD ORDERABLES Final Res ult [facility] [address] [place] [address] [place] [address] * (ABNORMAL) Comprehensive Metabolic Panel, Plasma (03/10/2025 9:40 AM EDT) Glucose, Plasma 87 74 - 99 mg/dL 03/10/2025 12:07 PM EDT [facility] BUN, Plasma 19 8 - 23 mg/dL 03/10/2025 12:07 PM EDT [facility] Creatinine, Plasma 1.01 0.60 - 1.10 mg/dL 03/10/2025 12:07 PM EDT [facility] BUN/Creatinine Ratio 19 03/10/2025 12:07 PM EDT [facility] Sodium, Plasma 139 136 - 145 mmol/L 03/10/2025 12:07 EDT [facility] Potassium, Plasma 3.8 3.6 - 4.9 mmol/L 03/10/2025 12:07 EDT [facility] Chloride, Plasma 103 97 - 107 mmol/L 03/10/2025 12:07 PM EDT [facility] CO2, Plasma 23 22 - 29 mmol/L 03/10/2025 12:07 PM EDT [facility] Anion Gap 13 6 - 16 mmol/L 03/10/2025 12:07 PM EDT [facility] Total Calcium, Plasma 8.8(L) 8.9 - 10.2 mg/dL 03/10/2025 12:07 PM EDT [facility] Total Protein 7.5 6.3 - 7.9 g/dL 03/10/2025 12:07 PM EDT [facility] Albumin, Plasma 4.4 3.5 - 5.2 g/dL 03/10/2025 12:07 PM EDT [facility] AST, Plasma 56(H) 10 - 35 U/L 03/10/2025 12:07 PM EDT [facility] ALT, Plasma 50(H) 10 - 35 U/L 03/10/2025 12:07 PM EDT [facility] Alkaline Phosphatase, Plasma 214(H) 46 - 142 U/L 03/10/2025 12:07 PM EDT [facility] Total Bilirubin, Plasma 0.7 0.2 - 1.1 mg/dL 03/10/2025 12:07 PM EDT [facility] eGFRcr 63.5 mL/min/1.7 3m*2 03/10/2025 12:07 PM EDT [facility] Comment:Reported eGFRcr in m L/min/1.73m2 is based the CKD-EPI 2020 equation that does not use a race coefficient. Blood Venous blood specimen / Unknown Venipuncture / Unknown 03/10/2025 9:40 AM EDT 03/10/2025 9:40 AM EDT Abdirizak Umanzor MD LAB BLOOD ORDERABLES Final Res ult [facility] [address] [place] [address] * Hepatitis C Antibody (10/28/2023 7:43 AM EST) Hepatitis C Antibody Negative Negative 10/28/2023 8:52 AM EST [facility] Blood Venous blood specimen / Unknown Venipuncture / Unknown 10/28/2023 7:43 AM EST 10/28/2023 8:09 AM EST Jame Dunham MD LAB BLOOD ORDERABLES Final Resul t Performing Organization Address City/[facility] Co de Phone Number [facility] [address] [place] [address] from Last 3 Months or Most Recently Relevant to Health Maintenance Insurance [facility] MEDICARE Care Teams Paraprofessional Education Assistant Relationship Specialty Start Date End Date Temo Fox MD PCP - General Family Medicine 09/29/23 Cherie Pathak APRN [address] [place] [address] [place] [address] Referring Physician Gastroenterology 09/29/23
--- OUTSIDE RECORDS SUMMARY | 2025-04-25 10:51 | XMS_ITS | Encounter Summary ---
Author Organization [facility] ([place], [place], [place], [place]) Address [address] [place] [address] Care Team Providers Care Territory Supervisor Name Role Phone Temo Fox MD Primary Care Provider [phone] Reason for Visit * Reason Comments Medication Refill Encounter Details Date Type Department Care Team (Late st Contact Info) Description 03/17/2025 Refill [facility] Cardiology - [place] [address] [place] [address] Verito Gill PA-C [address] [address] Hypokalemia Social History Tobacco Use Types Packs/Day Years [...] Date Peyman rded Speak language other than Afghan at home Not on file 10/22/2023 Want [...] as of this encounter Visit Diagnoses Diagnosis Hypokalemia Hypopotassemia documented in this encounter Care Teams Territory Supervisor Relationship Specialty Start Date End Date Temo Fox MD [address] [place] [address] [place] [address] PCP - General Family Medicine 07/23/23 documented as of this encounter
--- OUTSIDE RECORDS SUMMARY | 2025-04-25 10:51 | XMS_ITS | Data Portability ---
Author Organization [facility] [place] [facility] Address [address] [facility] [address] [place] [address] Care Team Providers Care Specialized Developer Name Role Phone BONITA PENAH Primary Care Provider Assessment No assessment recorded. Plan of Treatment Reminders Order Date Submit Date Provider Last Modified By Organization Details Last Modified Time Details Appointments None record ed. Lab None record ed. Referral None record ed. Procedures None record ed. Surgeries None record ed. Imaging None record ed. Medication Orders None record ed. Patient TargetsNo targets recorded. Patient Instructions Encounter Date Encounter Id Patient Instructions Last Modified By Organization Details Last Modified Time 11/16/2024 [id number] 1. F/u PRN [email or web address] Not available 01/2025 08:22:18 two 5mm nodules in left parotid found on MRI that she reports have been there for years; assured her this is not cancer which was the main concern; likely small intra-parotid lymph nodes and no further work-up necessary; will contact us if any changes [email or web address] Not available 11/16/2024 08:25:33 Reason for Referral None Reported. Problems Name Problem SNOMED Code Status Onset Date Resolution Date Notes Provider Name and Address Organization Details Recorded Time Thyroiditis 49339404 Active 2024 Faraz [facility] 08:14:59 Anticoagulant therapy Active 2024 Faraz [facility] 08:15:31 Problem Notes None recorded. Medical Equipment None Reported. Allergies No known drug allergies Medications Name Sig Start Date Stop Date Status Note LastModified by Organization Details LastModified Time amoxicillin 500 mg capsule TAKE 1 CAPSULE BY MOUTH THREE TIMES DAILY 11/16 completed Not Available Not Available Not Available furosemide 40 mg tablet TAKE 1 TABLET BY MOUTH ONCE DAILY active Not Available Not Available No t Available ondansetron HCl 4 mg tablet TAKE 1 TABLET BY MOUTH EVERY 8 HOURS NEEDED FOR NAUSEA AND VOMITING 11/16 completed Not Available Not Available Not Available spironolact one 25 mg tablet TAKE 1 TABLET BY MOUTH ONCE DAILY active Not Available Not Available No t Available levothyroxi ne 100 mcg tablet TAKE 1 TABLET BY MOUTH ONCE DAILY FOR 6 DAYS OF THE WEEK active Not Available Not Available No t Available potassium chloride ER 20 mEq tablet,exte nded release(par t/cryst) TAKE 1 TABLET BY MOUTH ONCE DAILY active Not Available Not Available No t Available benzonatate 100 mg capsule TAKE 1 CAPSULE BY MOUTH EVERY 8 HOURS NEEDED 11/16 completed Not Available Not Available Not Available warfarin 5 mg tablet TAKE 1 TABLET BY MOUTH ONCE DAILY active Not Available Not Available No t Available fluoxetine 10 mg capsule active Not Available Not Available Not Available folic acid 1 mg tablet TAKE 1 TABLET BY MOUTH ONCE DAILY active Not Available Not Available No t Available ibuprofen 600 mg tablet TAKE 1 TABLET BY MOUTH EVERY 6 HOURS NEEDED FOR PAIN 11/16 completed Not Available Not Available Not Available doxycycline hyclate 100 mg tablet TAKE 1 TABLET BY MOUTH EVERY 12 HOURS FOR 7 DAYS 11/16 completed Not Available Not Available Not Available chlorhexidi ne gluconate 0.12 % mouthwash RINSE WITH 15ML FOR 30 SECONDS AND SPIT, USE TWICE DAILY AFTER BRUSHING AND FLOSSING . 11/16 completed Not Available Not Available Not Available FeroSul 325 mg (65 mg iron) tablet TAKE 1 TABLET BY MOUTH ONCE DAILY active Not Available Not Available No t Available Paxlovid 300 mg (150 mg x 2)-100 mg tablets in a dose pack TAKE 3 TABLETS TOGETHER (TWO 150 MG NIRMATREL VIR TABLETS AND ONE 100 MG RITONAVIR TABLET) BY MOUTH TWICE DAILY FOR 5 DAYS. 11/16 completed Not Available Not Available Not Available Vitals Date Recorded Body height Body mass index (BMI) Body weight Body temperature Heart rate Systolic And Diastolic Provider Name and Address Organization Details Last Updated DateTime 5 160.02 cm 28.7 kg/m2 43262.6 6 g 97.2 [degF] 54 /min 90/44 mm[Hg] [place] [facility] 08:13:40 Social History None recorded. Functional Status None recorded. Mental Status None recorded. Family History Nothing Reported. Medical History Condition Response Allergies/Hayfever Y Arthritis Y Hearing Loss Y Liver Disease Y Acid Reflux (GERD) Y Gallbladder Disease Y Hypothyroidism Y Gynecological HistoryNo gynecological history recorded. Obstetrics History GPAL:G 0 P 0 0 0 0 Past Encounters Encounter ID Performer Location Encounter Start Date Encounter Closed Date Diagnosis/Indication Diagnosis SNOMED-CT Code Diagnosis ICD10 Code Diagnosis Note [id number] GORDO MCLEAN MD [place] [facility] [address] [place] [address] 11/16/2024 08:03:09 11/16/2024 09:09:26 Mass of left parotid gland 1994470925 5520891 R22.1 Parotid swelling 1144588 05 K11.9 Health Concerns Section Related Observation LastModified by Organization Detai ls LastModified Time None Recorded Concern Status LastModified by Organization Details LastModified Time None Recorded Advance Directives Directive None Recorded Payers Insurance Date Sequence Insurance Name Policy Number Policy Jackson Covered Member ID Jackson Member ID Guarantor Name 10/27/2024 1 [place] [id number] Melissa Mercedes [id number] Melissa Mercedes 11/16/2024 1 [place] OF [facility] MEDIBLUE PLUS (MEDICARE REPLACEMENT HMO) [id number] Melissa Mercedes [id number] Melissa Mercedes Notes Date Note Type Note Provider Name and Address Organization Details Recorded Time 11/16/2024 text/html Melissa comes in today for consultation at the request of Dr. Camara (Oral surgery) for an evaluation of periodic nodules. Melissa had teeth removed and Dr. Camara found a left parotid mass. She does have pain at times in her jaw area. Melissa also reports having roaring in her ears that comes and goes when she moves her neck/head. GORDO MCLEAN MD [address] [place] [address], [phone], [facility] 11/16/2024 08:25:50 OBGyn Episode No OBEpisode recorded.
--- OUTSIDE RECORDS SUMMARY | 2025-04-25 10:51 | XMS_ITS | Encounter Summary ---
Author Organization [employer] ([place], [place], [place], [place]) Address [address] [place] [address] Care Team Providers Care Sharepoint Consultant Name Role Phone Temo Fox MD Primary Care Provider [phone]- [phone] Reason for Visit * Reason Comments Medication Refill Encounter Details Date Type Department Care Team (Late st Contact Info) Description 04/22/2024 Refill [facility] Cardiology - [place] [address] [place] [address] Verito Gill PA-C [address] [address] Hypertension, unspecified type Social History [...] Date Peyman rded Speak language other than Azerbaijani at home Not on file 10/22/2023 Want [...] type documented in this encounter Care Teams Sharepoint Consultant Relationship Specialty Start Date End Date Temo Fox MD [address] [place] [address] [place] [address] PCP - General Family Medicine 07/23/23 documented as of this encounter
--- OUTSIDE RECORDS SUMMARY | 2025-04-25 10:51 | XMS_ITS | Encounter Summary ---
Author Organization [employer] ([place], [place], [place], [place]) Address [address] [place] [address] Care Team Providers Care Supervisor Respiratory Name Role Phone Temo Fox MD Primary Care Provider [phone] Encounter Details Date Type Department Care Team (Late st Contact Info) Description 03/19/2021 Transcribed Document [facility] [place] [facility] [place] [address] ProviderNolan MD [address] [place], [place] [address] Social History Tobacco Use Types Packs/Day Years Used Date Smoking Tobacco: Never Assessed Comments Unknown Sex and Gender Information Value Date Recorded Sex Assigned at Not on file Legal Sex Female 5:18 PM CDT Gender Identity Not on file Sexual Orientation Not on file documented as of this encounter Miscellaneous Notes * [employer] Conversion Note - Nolan Miranda MD - 03/19/2021 4:07 PM CDT DATE OF SERVICE: 03/19/2021 SLEEP MEDICINE FOLLOWUP PRIMARY CARE PROVIDER: Ramya Morrison. HISTORY OF PRESENT ILLNESS: Patient presents for her initial followup regarding her obstructive sleep apnea. She presented on January 03, 2021, for sleep consultation and underwent a home sleep study on January 20, 2021. This was read by Dr. Brian Godinez. It resulted in an overall RDI of 29.6, respiratory events per hour. She had a minimum oxygen saturation of 72%, average 94%. It was recommended that she start positive airway pressure therapy for her severe obstructive sleep apnea. The patient complains of dry mouth and nose and difficulty sleeping with CPAP. She scores little to no daytime sleepiness and scores 2/24 on the Rison Sleepiness Scale. Interpretation and review of data downloaded from her AutoPAP demonstrates poor compliance. It shows usage of one day over the last 30 days. Her over 4-hour compliance was 0%. The patient states this is not accurate. She has worn the last 20 to 30 days for 4 to 5 hours. The patient does note that she feels like her sleep is more restorative and she is not snoring with use. MEDICATIONS: Updated and reviewed in the chart. DRUG ALLERGIES: Updated and reviewed in the chart. REVIEW OF SYSTEMS: Negative. PHYSICAL EXAMINATION: VITAL SIGNS: Rison 2, weight 264, BMI 46. Respirations 16, oxygen saturation 96%, blood pressure 129/61, heart rate 76. GENERAL: This is a pleasant female, in no distress. She is alert and oriented x3. Mood and affect appropriate. The patient is cooperative. HEENT: Pupils are equal and round. Exam of the airway deferred. EXTREMITIES: Without clubbing, cyanosis, or edema. NEUROLOGICAL: Speech is clear and fluent. Hearing intact. Facial symmetry present. Eye movements conjugate. ASSESSMENT: 1. Severe obstructive sleep apnea. The patient reports difficulty sleeping and adjusting to AutoPAP. That her download only shows usage one out of the last 30 days. The patient says this is inaccurate. She has worn at least 20 out of the last 30 days for 4 to 5 hours. She does feel like she is benefitting from usage. She feels like her sleep is more restorative and she is no longer snoring. 2. Insomnia. 3. History of tachycardia and arrhythmia, improved with usage of AutoPAP. 4. Morbid obesity. 5. Bipolar syndrome. RECOMMENDATIONS: 1. Continue AutoPAP. 2. I have decreased her pressure to help her better tolerate. Her pressure setting will now range from 4 to 10 cm. Orders have been sent to [facility]. Updated supply order sent as well to [facility]. 3. Weight loss recommended. 4. We had a detailed discussion regarding compliance. I have asked her to speak with [facility] [employer] about the discrepancy between her usage that is documented and what the patient is saying. 5. We will see her back in 6 to 8 weeks to see if we can document compliance. DATA REVIEWED: PAP download and HST data 01/20/2021. /[id number] JINA Hendrickson/AQ / HH / MODL /[id number] CC: Ramya Morrison Electronically signed by Interface, [facility] Conversion Director General [employer] at 01/27/2023 1:31 PM CDT documented in this encounter Plan of Treatment Not on file documented as of this encounter Visit Diagnoses Not on filedocumented in this encounter Care Teams Supervisor Respiratory Relationship Specialty Start Date End Date Temo Fox MD [address] [place] [address] [place] [address] PCP - General Family Medicine 07/23/23 documented as of this encounter
--- OUTSIDE RECORDS SUMMARY | 2025-04-25 10:51 | XMS_ITS | Encounter Summary ---
Author Organization Healthcare Address [address] [place] [address] Care Team Providers Care Char Filter Operator Helper Name Role Phone Temo Fox MD Primary Care Provider Cherie Pena WIRE PREPARATION WORKER Unavailable [phone] Encounter Details Date Type Department Care Team (Latest Contact Info) Description 03/10/2025 Travel Social History Tobacco Use Types Packs/Day [...] AM EST Office Visit [facility] [place] [address], [address] [place] [address] Abdirizak Umanzor MD [address] [place] [address] documented as of this encounter Visit Diagnoses Not on filedocumented in this encounter Additional Health Concerns Assessment Noted Time A fall risk assessment has been complete d for the patient 03/10/2025 8:52 AM EDT A Body Mass Index follow-up plan has been documented for the patient 03/10/2025 9:29 AM EDT documented as of this encounter Care Teams Char Filter Operator Helper Relationship Specialty Start Date End Date Temo Fox MD PCP - General Family Medicine 09/29/23 Cherie Pathak APRN [address] [place] [address] Dr Martines [address] [place], [place] [id number] Referring Physician Gastroenterology 09/29/23 documented as of this encounter
--- OUTSIDE RECORDS SUMMARY | 2025-04-25 10:52 | XMS_ITS | Encounter Summary ---
Author Organization Healthcare Address [address] [facility] [place] [address] Care Team Providers Care Manager Economic Name Role Phone Cherie Pathak DIGITAL MARKETING ASSOCIATE Primary Care Provider [phone] Temo Fox MD Primary Care Provider Bree vailable Cherie Pathak DIGITAL MARKETING ASSOCIATE Unavailable [phone] Encounter Details Date Type Department Care Team (Late Contact Info) Description 08/13/2022 Orders Only External Location [address] [place] [address] Nika Erazo PA [address] [place] [address] Social History Tobacco Use Types Packs/Day Years Used Date Smoking Tobacco: Never Alcohol Use Standard Drinks/Week Comments No 0 (1 standard drink = 0.6 oz pur e alcohol) Comments Unknown Sex and Gender Information Value Date Recorded Sex Assigned at Not on file Legal Sex Female 7:56 PM EDT Gender Identity Not on file Sexual Orientation Not on file documented as of this encounter Plan of Treatment Upcoming Encounters Date Type Department Care Team (Late Contact Info) Description 09/29/2025 8:40 AM EST Office Visit [facility] [place] [address] [facility] [place] [address] Abdirizak Umanzor MD [address] [place] [address] documented as of this encounter Procedures Procedure Name Priority Date/Time Associated Diagnosis Comments XR OUTSIDE IMAGES 08/13/2022 9:31 AM EDT documented in this encounter Results * XR OUTSIDE IMAGES (08/13/2022 9:31 AM EDT) Anatomical Region Laterality Modality Radiographic Maite ging 08/13/2022 9:31 AM EDT Nika PEREZ IMG XR PROCEDURES Final Result documented in this encounter Visit Diagnoses Not on filedocumented in this encounter Care Teams Manager Economic Relationship Specialty Start Date End Date Cherie Pathak APRN [address] [place] [address] [place] [address] PCP - General 02/23/21 09/28/23 Temo Fox MD [address] [place] [address] [place] [address] PCP - General Family Medicine 09/29/23 Cherie Pathak APRN [address] [place] [address] [place] [address] Referring Physician Gastroenterology 09/29/23 documented as of this encounter
--- OUTSIDE RECORDS SUMMARY | 2025-04-25 10:52 | XMS_ITS | Continuity of Care Document ---
Author Organization [facility] Address [address] [address] Care Team Providers Care Deli/Bakery Associate Name Role Phone LIZANDRO PENA Primary Care Provider Assessment No assessment recorded. Plan of Treatment Reminders Order Date Submit Date Provider Last Modified By Organization Details Last Modified Time Details Appointments OV EST 20 2024 08:20A M Lamont Alaniz, DNP, SUPERVISOR TYPESETTING, TENNIS BALL COVER CEMENTER-C Not available Not available Not available OV EST 30 2024 09:30A M CHRIS Rowe-C Not available Not available Not available Lab iron saturati on, serum 2024 025 [facility], [address] [place] [address] [place], [id number], 03/08/2025 10:24:04 iron + TIBC + ferritin , serum 2024 025 [facility], [address] [place] [address] [place], [id number], 03/08/2025 10:24:04 CBC w/ auto diff 2024 025 [facility], [address] [place] [address] [place], [id number], 03/08/2025 10:24:05 CMP, serum or plasma 2024 025 [email or web address] [facility], [address] [place] [address] Hu Jimenez [place], [id number], 03/08/2025 14:54:40 C-reacti ve protein, quantita tive, serum or plasma 2024 025 [email or web address] [facility], [address] [place] [address] [place], [id number], 03/08/2025 10:24:05 protein S activity , plasma 2024 025 [facility], [address] [place] [address] [place], [id number], 03/02/2025 16:16:07 factor VIII activity , plasma 2024 025 [facility], [address] [place] [address] [place], [id number], 03/02/2025 02:13:57 Referral None recorded . Procedures None recorded . Surgeries None recorded . Imaging None recorded . Medication Orders None recorded . Patient TargetsNo targets recorded. Patient InstructionsNo instructions recorded. Reason for Referral None Reported. Problems Name Problem SNOMED Code Status Onset Date Resolution Date Notes Provider Name and Address Organization Details Recorded Time Elke's edema 890942462 Active [address], [address] [place], [address] , [place] [facility] & [place] 3 13:51:25 Left upper quadrant pain 271247082 Active [address]ICK [address], [address] [place], [address] , [place] [facility] [place] & [place] 3 13:51:25 Cervical spondylosi s 730686034 Active [address]ICK [address], [address] , [place], [address] , [place] [facility] [place] & [place] 3 13:51:25 Difficulty speaking Active DOMINICK [address], [address] , [place], [address] , [place] [facility] & [place] 3 13:51:26 Body mass index 40+ - severely obese 331439988 Active DOMINICK SALEH RUB[address]N RD, LD [address] [facility], [place], [address] , [place] [facility] & [place] 3 13:51:25 Severe major depression , single episode, without psychotic features 61667080 Active DOMINICK WIL[address], [address] [facility], [place], [address] , [place] [facility] & [place] 3 13:51:26 Acquired hypothyroi dism 099541884 Active DOMINICK DELFINO [address], [address] [facility], [place], [address] , [place] [facility] & [place] 3 13:51:25 Dyslipidem ia 750951051 Active DOMINICK DELFINO [address], [address] [facility], [place], [address] , [place] [facility] & [place] 3 13:51:25 Severe recurrent major depression without psychotic features 43283280 Active DOMINICK TOMPKINSADAN [address], LD [address] [facility], [place], [address] , [place] [facility] & [place] 3 13:51:25 History of musculoske letal disease 848407574 Active DOMINICK TOMPKINSADAN [address], LD [address] [facility], [place], [address] , [place] [facility] & [place] 3 13:51:25 Patient encounter status 166815005 Active [address]ICK [address], LD [address] [facility], [place], [address] , [place] [facility] & [place] 3 13:51:25 Family tension 381150358 Active [address]ICK [address], LD [address] [facility], [place], [address] , [place] [facility] & [place] 3 13:51:25 Otalgia 42115832 Active [address]INICK [address], LD [address] [facility], [place], [address] , [place] [facility] & [place] 3 13:51:25 Disorder of gastrointe stinal tract 233741500 Active DOMINICK [address], LD [address] [facility], [place], [address] , [place] [facility] & [place] 3 13:51:25 Sialoadeni tis 25831531 Active [address]INICK [address], LD [address] [facility], [place], [address] , [place] [facility] & [place] 3 13:51:26 Irritable bowel syndrome 58013937 Active [address]INICK [address], LD [address] [facility], [place], [address] , [place] [facility] & [place] 3 13:51:25 Esophageal dysphagia 93267225 Active [address]ICK [address], LD [address] [facility], [place], [address] , [place] [facility] & [place] 3 13:51:25 Dizziness 850472484 Active [address]ICK [address], LD [address] [facility], [place], [address] , [place] [facility] & [place] 3 13:51:25 Chronic pain 20167537 Active [address]INICK [address], LD [address] [facility], [place], [address] , [place] [facility] & [place] 3 13:51:26 Chronic low back pain 960165347 Active [address]ICK [address], LD [address] [facility], [place], [address] , [place] [facility] & [place] 3 13:51:25 Abnormal auditory perception 10233698 Active [address], LD [address] [facility], [place], [address] , [place] [facility] & [place] 3 13:51:26 Lesion of salivary gland 233811674 Active [address]INICK [address], LD [address] [facility], [place], [address] , [place] [facility] [place] & [place] 3 13:51:25 Newly diagnosed diabetes 363887605 Active [address]INICK [address], LD [address] [facility], [place], [address] , [place] [facility] & [place] 3 13:51:25 Disturbanc e of salivary secretion 11352362 Active DOMINICK [address], LD [address] [facility], [place], [address] , [place] [facility] & [place] 3 13:51:26 Mixed hyperlipid emia 247062017 Active DOMINICK [address], LD [address] [facility], [place], [address] , [place] [facility] & [place] 3 13:51:25 Irregular heart beat 555184879 Active [address]INICK [address], LD [address] [facility], [place], [address] , [place] [facility] & [place] 3 13:51:25 Metabolic dysfunctio n-associat ed steatohepa titis 458937639 Active DOMINICK [address], LD [address] [facility], [place], [address] , [place] [facility] & [place] 3 13:51:26 Hypertensi ve disorder 16012224 Active DOMINICK [address], LD [address] [facility], [place], [address] , [place] [facility] & [place] 3 13:51:25 Panic disorder 851037341 Active [address]INICK [address], LD [address] [facility], [place], [address] , [place] [facility] & [place] 3 13:51:25 Essential hypertensi on 34595105 Active DOMINICK [address], LD [address] [facility], [place], [address] , [place] [facility] [place] & [place] 3 13:51:26 Dry cornea 678887263 Active DOMINICK [address], LD [address], [place], [address] , [place] [facility] [place] & [place] 3 13:51:25 Gastro-eso phageal reflux disease with esophagiti s 701935972 Active DOMINICK MONTA[address] RD, LD [address], [place], [address] , [place] [facility] [place] & [place] 3 13:51:25 Steatotic liver disease 521056857 Active [address]INICK [address], LD [address] [facility], [place], [address] , [place] [facility] [place] & [place] 3 13:51:25 Chronic purulent otitis media 27795231 Active DOMINICK [address], LD [address] [facility], [place], [address] , [place] [facility] & [place] 3 13:51:25 Morbid obesity 534102309 Active Not Available [facility] 3 13:58:46 Symptom of head and neck region 177564759 Active [address]INICK [address], LD [address] [facility], [place], [address] , [place] [facility] & [place] 3 13:51:25 Neck pain 41669486 Active [address]INICK [address], LD [address] [facility], [place], [address] , [place] [facility] [place] & [place] 3 13:51:26 Tobacco user 747112833 Active [address]INICK [address], LD [address] [facility], [place], [address] , [place] [facility] [place] & [place] 3 13:51:25 Adjustment disorder with mixed emotional features 19601218 Active [address], [address], [place], [address] , [place] [facility] & [place] 3 13:51:26 Bilateral tinnitus 8873511097080 Active DOMINICK [address], LD [address], [place], [address] , [place] [facility] & [place] 3 13:51:26 Counseling procedure with explicit context 583211059 Active [address]INICK [address], LD [address] [facility], [place], [place], [address] [place] [address] , [place] [facility] & [place] 3 13:51:26 Gastroesop hageal reflux disease 793004962 Active DOMINICK MONTA[address], LD [address] [facility], [place], [address] [place] [address] , [place] [facility] & [place] 3 13:51:25 Sj gren's syndrome 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 Active DOMINICK [address], LD [address] [facility], [place], [address] [place] [address] , [place] [facility] & [place] 3 13:51:26 Type 2 diabetes mellitus without complicati on 780910802 Active DOMINICK [address], LD [address] [facility], [place], [address] [place] [address] , [place] [facility] & [place] 3 13:51:25 Gastroesop hageal reflux disease without esophagiti s 960289633 Active DOMINICK [address], LD [address] [facility], [place], [address] [place] [address] , [place] [facility] & [place] 3 13:51:25 Previous abnormalit y of glucose tolerance 3904087 Active DOMINICK [address], LD [address] [facility], [place], [address] [place] [address] , [place] [facility] & [place] 3 13:51:25 Anxiety 98068376 Active [address]INICK [address], LD [address] [facility], [place], [address] [place] [address] , [place] [facility] & [place] 3 13:51:26 Sensorineu ral hearing loss of bilateral ears 710708800 Active DOMINICK [address], LD [address] [facility], [place], [address] [place] [address] , [place] [facility] & [place] 3 13:51:25 Swallowing painful 57377821 Active [address]INICK [address], LD [address] [facility], [place], [address] [place] [address] , [place] [facility] & [place] 3 13:51:25 Non-infect michael diarrhea 75425517 Active [address]INICK [address], LD [address] [facility], [place], [address] [place] [address] , [facility] - [facility] & [place] 3 13:51:26 Acid reflux 598914738 Active [address]INICK [address], LD [address] [facility], [place], [address] [place] [address] , [place] [facility] & [place] 3 13:51:26 Fibromyalg ia 102291294 Active [address]ICK [address], LD [address] [facility], [place], [address] [place] [address] , [place] [facility] & [place] 3 13:51:25 Liver function tests outside reference range 179785550 Active [address]INICK [address], LD [address] [facility], [place], [address] [place] [address] , [place] [facility] & [place] 3 13:51:25 Mild intermitte nt asthma 540435206 Active DOMINICK [address], LD [address] [facility], [place], [address] [place] [address] , [place] [facility] & [place] 3 13:51:26 Hypothyroi dism 41031527 Active DOMINICK [address], LD [address] [facility], [place], [address] [place] [address] , [place] [facility] & [place] 3 13:51:25 Constipati on 68701076 Active [address]INICK [address], LD [address] [facility], [place], [address] , [place] [facility] [place] & [place] 3 13:51:25 Intentiona l weight loss 401829189 Active [address], [address], [place], [address] , [place] [facility] [place] & [place] 3 13:51:25 Nausea 342280255 Active [address], [address] [facility], [place], [address] , [place] [facility] [place] & [place] 3 13:51:25 Vomiting 161466662 Active [address], [address] [facility], [place], [address] , [place] [facility] [place] & [place] 3 13:51:25 Hiatal hernia 80874106 Active [address], LD [address] [facility], [place], [address] , [place] [facility] [place] & [place] 3 13:51:26 Obesity 896811022 Active 2022 Lamont Alaniz, DNP, SUPERVISOR TYPESETTING, TENNIS BALL COVER CEMENTER-C [address] [facility], [place], [address] , [place] [facility] [place] & [place] 3 11:24:38 Iron deficiency anemia 44325108 Active 2022 Cherie Pathak NP [address], [address], [place], [address] , [place] [facility] [place] & [place] 3 10:46:23 Iron profile outside reference range 4738505082860 1 Active 2022 Cherie Pathak NP [address], [address], [place], [address] , [place] [facility] [place] & [place] 3 10:46:37 Anemia 218460620 Active 2022 Cherie Pathak NP [address], [address], [place], [address] , [place] [facility] [place] & [place] 3 10:47:41 Overweight 669857896 Active 2022 Lamont Alaniz, DNP, SUPERVISOR TYPESETTING, TENNIS BALL COVER CEMENTER-C [address] [facility], [place], [address] , [place] [facility] [place] 3 13:00:31 Hemochroma tosis 641335261 Active 2022 Cherie Pathak NP [address], [address], [place], [address] , [place] [facility] [place] 3 23:52:20 Cirrhosis of liver 15503085 Active 2022 Cherie Pathak NP [address], [address], [place], [address] , [place] [facility] & [place] 3 23:52:30 Alcoholic cirrhosis 913528090 Active 2023 Cherie Pathak NP [address], [address], [place], [address] , [place] [facility] [place] 4 08:14:49 Ascites 393893425 Active 2023 Cherie Pathak NP [address], [address], [place], [address] , [place] [facility] [place] 4 08:14:49 Hereditary hemochroma tosis 29771834 Active 2023 Cherie Pathak NP [address], [address], [place], [address] , [place] [facility] & [place] 4 08:14:49 Problem Notes None recorded. Procedures Surgical History Date Name Laterality Status Provider Name and Address Organization Details Recorded Time 02/28 Venipuncture completed Bridget Bea [place] [facility] [place] & [place] 5 08:30:47 09/16 Venipuncture completed Trudy Pacheco [place] [facility] [place] 4 08:32:34 04/01 Venipuncture completed Bridget Figueredo [place] [facility] [place] 4 10:02:47 05/22 Date of Last Colonoscopy completed DOMINICK MONTA[address] RD, LD [address], [place], [address] , [place] [facility] [place] & [place] 2 15:36:51 12/25 Colonoscopy completed mary lou smith [place] [facility] [place] & [place] 2 16:12:26 06/29 esophagogastroduodenoscopy completed preethi mccabeard [place] [facility] [place] & [place] 2 16:11:43 10/[address], LD [address], [place], [address] , [place] [facility] [place] & [place] 2 15:36:51 03/18 Date of Last Pap Smear completed DOMINICK MONTANA RD, LD [address], [place], [address] , [place] [facility] [place] [facility] [place] 2 15:36:51 08/13 Cholecystectomy completed mary lou mccabeard [place] [facility] [place] & [place] 2 16:11:29 02/16 Most Recent Bone Density completed DOMINICK MONTANA RD, LD [address], [place], [address] , [place] [facility] [place] & [place] 2 15:36:51 10/13 oophorectomy completed CHRIS Hammer [address], [place], [address] , [place] [facility] [place] & [place] 2 10:45:32 10/13 Tubal Ligation completed mary lou mccabeard [place] [facility] & [place] 2 16:10:57 procedure on duodenum completed Solo in [facility] & [place] 3 08:35:43 Imaging Results None recorded. Procedure Notes None recorded. Medical Equipment None Reported. Allergies Allergen ID Allergen Name Allergen Category Reaction Reaction Severity Criticality Documentation Date Start Date Code Code System Note Provider Name and Address Organization Details Recorded Time 95148 latex environme nt,medica tion Not available Not available Not available 07/04/2022 15373 91 RxNorm Delfina [place] luanne [facility] & [place] 2 08:48:02 74581 adhesive tape environme nt,medica tion Not available Not available Not available 07/22/2022 53650 UNK Susanna stroud, [facility] & [place] 2 10:07:39 Medications Name Sig Start Date Stop Date Status Note LastModified by Organization Details LastModified Time Prescriptio n - Renewal active Not Available Not Available Not Available celecoxib 200 mg capsule Take 200 mg by oral route. 05/19 completed Not Available Not Available Not Available amoxicillin 500 mg capsule TAKE 1 CAPSULE BY MOUTH THREE TIMES DAILY 09/16 completed Not Available Not Available Not Available furosemide 40 mg tablet TAKE 1 TABLET BY MOUTH ONCE DAILY 09/16 completed Not Available Not Available Not Available metformin 500 mg tablet Take 1 tablet twice a day by oral route. 10/16 completed Not Available Not Available Not Available prednisone 10 mg tablet TAKE 1 TABLET BY MOUTH ONCE DAILY NEEDED 07/25 completed Not Available Not Available Not Available albuterol sulfate 2.5 mg/3 mL (0.083 %) solution for nebulizatio n 2.5 mg by inhalatio n route. 10/23 completed Not Available Not Available Not Available glycopyrrol ate 0.2 mg/mL injection solution 1 mg by injection route. 10/23 completed Not Available Not Available Not Available azithromyci n 250 mg tablet TAKE 2 TABLETS BY MOUTH ON DAY 1, AND THEN TAKE 1 TABLET BY MOUTH ONCE A DAY ON DAY 2 THROUGH DAY 5 05/19 completed Not Available Not Available Not Available bupivacaine HCl 0.25 % (2.5 mg/mL) injection solution 50 mL by injection route. 10/23 completed Not Available Not Available Not Available meloxicam 15 mg tablet Take 1 tablet every day by oral route. 10/16 completed Not Available Not Available Not Available Diprivan 10 mg/mL intravenous emulsion 400 mg by intraven. route. 10/23 completed Not Available Not Available Not Available FreeStyle Lancets 28 gauge 11/21 completed Not Available Not Available Not Available lisinopril 20 mg tablet 40 mg by oral route. 10/23 completed Not Available Not Available Not Available ondansetron HCl 4 mg tablet active Not Available Not Available Not Available prednisone 20 mg tablet TAKE 1 TABLET BY MOUTH TWICE DAILY 05/19 completed Not Available Not Available Not Available fluoxetine 10 mg tablet TAKE 1 TABLET BY MOUTH ONCE DAILY FOR DEPRESSIO N 09/01 completed Not Available Not Available Not Available lactated Ringers intravenous solution 1000 mL by intraven. route. 10/22 completed Not Available Not Available Not Available rocuronium 10 mg/mL intravenous solution 100 mg by intraven. route. 10/23 completed Not Available Not Available Not Available acetaminoph en 300 mg-codeine 15 mg tablet TAKE 1 TABLET BY MOUTH EVERY 4 HOURS NEEDED FOR COUGH 11/22 completed Not Available Not Available Not Available omeprazole 40 mg capsule,del ayed release TAKE 1 CAPSULE BY MOUTH TWICE DAILY 09/16 completed Not Available Not Available Not Available leflunomide 20 mg tablet Take 20 mg by oral route. 05/19 completed Not Available Not Available Not Available acetaminoph en 500 mg tablet 500 mg by oral route. 10/23 completed Not Available Not Available Not Available spironolact one 25 mg tablet TAKE 1 TABLET BY MOUTH ONCE DAILY active Not Available Not Available No t Available hydralazine 20 mg/mL injection solution 10 mg by injection route. 10/23 completed Not Available Not Available Not Available carvedilol 3.125 mg tablet 3.125 mg by oral route. 10/23 completed Not Available Not Available Not Available levothyroxi ne 100 mcg tablet TAKE 1/2 (ONE-HALF ) TABLET BY MOUTH ONCE DAILY FOR 6 DAYS OF THE WEEK active Not Available Not Available No t Available oxycodone-a cetaminophe n 5 mg-325 mg tablet 1 tablet by oral route. 10/22 completed Not Available Not Available Not Available thiamine HCl (vitamin B1) 100 mg/mL injection solution INJECT 1 ML INTRAMUSC ULARLY ONCE DAILY FOR 5 DAYS 09/01 completed Not Available Not Available Not Available amoxicillin 875 mg tablet TAKE 1 TABLET BY MOUTH EVERY 12 HOURS 05/19 completed Not Available Not Available Not Available potassium chloride ER 20 mEq tablet,exte nded release(par t/cryst) TAKE 1 TABLET BY MOUTH ONCE DAILY active Not Available Not Available No t Available famotidine 20 mg tablet Take 1 tablet every day by oral route for 30 days. 01/20 completed Not Available Not Available Not Available diphenhydra mine 50 mg/mL injection solution 25 mg by injection route. 10/23 completed Not Available Not Available Not Available Protonix 40 mg intravenous solution 40 mg by intraven. route. 10/22 completed Not Available Not Available Not Available dicyclomine 20 mg tablet Take 1 {tablet} 3 times a day by oral route. 07/22 completed Not Available Not Available Not Available benzonatate 100 mg capsule TAKE 1 CAPSULE BY MOUTH EVERY 8 HOURS NEEDED active Not Available Not Available No t Available pantoprazol e 40 mg tablet,citlalli yed release TAKE 1 TABLET BY MOUTH ONCE DAILY active Not Available Not Available No t Available cyanocobala min (vit B-12) 1,000 mcg/mL injection solution 1000 microgram s by injection route. 10/22 completed Not Available Not Available Not Available ferrous sulfate 325 mg (65 mg iron) tablet Take 1 tablet by mouth once daily 2024 active Not Available Not Available Not Avai lable promethazin e 25 mg/mL injection solution 12.5 mg by injection route. 10/23 completed Not Available Not Available Not Available warfarin 5 mg tablet TAKE 1 TABLET BY MOUTH ONCE DAILY 02/28 completed Not Available Not Available Not Available fentanyl (PF) 50 mcg/mL injection solution 100 microgram s by injection route. 10/22 completed Not Available Not Available Not Available fluoxetine 10 mg capsule TAKE 1 CAPSULE BY MOUTH ONCE DAILY active Not Available Not Available No t Available gabapentin 300 mg capsule 300 mg by oral route. 11/22 completed Not Available Not Available Not Available omeprazole 20 mg capsule,del ayed release 1 capsule every day by oral route. active Not Available Not Available No t Available folic acid 1 mg tablet TAKE 1 TABLET BY MOUTH ONCE DAILY active Not Available Not Available No t Available furosemide 20 mg tablet Take 1 tablet every day by oral route. active Not Available Not Available No t Available lidocaine HCl 20 mg/mL (2 %) injection solution 4 mL by injection route. 10/23 completed Not Available Not Available Not Available sodium chloride 0.9 % intravenous solution 50 mL by intraven. route. 10/22 completed Not Available Not Available Not Available dexamethaso ne sodium phosphate 4 mg/mL injection solution 4 mg by injection route. 10/23 completed Not Available Not Available Not Available ibuprofen 600 mg tablet TAKE 1 TABLET BY MOUTH TWICE DAILY active Not Available Not Available No t Available scopolamine 1 mg over 3 days transdermal patch 1 mg by transderm . route. 10/22 completed Not Available Not Available Not Available methylpredn isolone 4 mg tablets in a dose pack TAKE DIRECTED 05/19 completed Not Available Not Available Not Available albuterol sulfate HFA 90 mcg/actuati on aerosol inhaler 12/16 completed Not Available Not Available Not Available celecoxib 100 mg capsule Take 1 capsule twice a day by oral route ] for 7 days. 11/22 completed Not Available Not Available Not Available Quelicin 20 mg/mL injection solution 200 mg by injection route. 10/23 completed Not Available Not Available Not Available lisinopril 40 mg tablet TAKE 1 TABLET BY MOUTH ONCE DAILY FOR HIGH BLOOD PRESSURE 05/19 completed Not Available Not Available Not Available ondansetron 4 mg disintegrat ing tablet DISSOLVE 1 TABLET IN MOUTH TWICE DAILY NEEDED 09/01 completed Not Available Not Available Not Available doxycycline hyclate 100 mg tablet TAKE 1 TABLET BY MOUTH TWICE DAILY active Not Available Not Available No t Available IC Green 25 mg solution for injection 25 mg by injection route. 10/22 completed Not Available Not Available Not Available spironolact one 50 mg tablet Take 1 tablet every day by oral route. 12/16 completed Not Available Not Available Not Available simethicone 80 mg chewable tablet 80 mg by oral route. 10/22 completed Not Available Not Available Not Available midazolam 1 mg/mL injection solution 2 mg by injection route. 10/22 completed Not Available Not Available Not Available hydromorpho ne 2 mg/mL injection syringe 1 mg by injection route. 10/22 completed Not Available Not Available Not Available enoxaparin 80 mg/0.8 mL subcutaneou s syringe FIRST REMOVE 0.07 ML THEN INJECT 0.73 ML SUBCUTANE OUSLY EVERY 12 HOURS FOR 5 DAYS PRIOR TO TEETH EXTRACTIO N active Not Available Not Available No t Available enoxaparin 40 mg/0.4 mL subcutaneou s syringe 40 mg by sub-q route. 11/22 completed Not Available Not Available Not Available sodium chloride 0.9 % (flush) injection syringe 10 mL by injection route. 10/23 completed Not Available Not Available Not Available hydromorpho ne 1 mg/mL injection syringe 1 mg by injection route. 10/23 completed Not Available Not Available Not Available glipizide 2.5 mg-metformi n 250 mg tablet Take 1 tablet every day by oral route. 05/19 completed Not Available Not Available Not Available rosuvastati n 10 mg tablet Take 1 tablet by oral route. 09/01 completed Not Available Not Available Not Available duloxetine 30 mg capsule,del ayed release 60 mg by oral route. 10/23 completed Not Available Not Available Not Available duloxetine 60 mg capsule,del ayed release 09/01 completed Not Available Not Available Not Available tizanidine 4 mg capsule 07/22 completed Not Available Not Available Not Available buprenorphi ne HCl 0.3 mg/mL injection solution 0.3 mg by injection route. 10/23 completed Not Available Not Available Not Available chlorhexidi ne gluconate 0.12 % mouthwash RINSE WITH 15ML FOR 30 SECONDS AND SPIT, USE TWICE DAILY AFTER BRUSHING AND FLOSSING . active Not Available Not Available No t Available sodium chloride 0.9 % intravenous piggyback 50 mL by intraven. route. 10/23 completed Not Available Not Available Not Available Demerol (PF) 25 mg/mL injection syringe 12.5 mg by injection route. 10/22 completed Not Available Not Available Not Available metformin 250mg once daily 11/22 completed Not Available Not Available Not Available Fiona Root 550mg qd 10/16 completed Not Available Not Available Not Available multivitami n 12/08 completed Not Available Not Available Not Available ondansetron HCl (PF) 4 mg/2 mL injection solution 4 mg by injection route. 10/22 completed Not Available Not Available Not Available cholecalcif court (vitamin D3) 1,250 mcg (50,000 unit) capsule 05/19 completed Not Available Not Available Not Available cholecalcif court (vitamin D3) 125 mcg (5,000 unit) tablet Take 5000 unts by oral route. 05/19 completed Not Available Not Available Not Available Xarelto 10 mg tablet Take 1 tablet every day by oral route for 30 days. 10/27 completed Not Available Not Available Not Available Victoza 2-Jasbir 0.6 mg/0.1 mL (18 mg/3 mL) subcutaneou s pen injector 07/22 completed Not Available Not Available Not Available Eliquis 2.5 mg tablet TAKE 1 TABLET BY MOUTH TWICE DAILY active Not Available Not Available No t Available potassium chloride ER 20 mEq tablet,exte nded release Take one tablet twice daily for 5 days then one tablet once daily for 5 days. 05/19 completed Not Available Not Available Not Available morphine 4 mg/mL intravenous syringe 4 mg by intraven. route. 10/22 completed Not Available Not Available Not Available Bridion 100 mg/mL intravenous solution 500 mg by intraven. route. 10/23 completed Not Available Not Available Not Available Paxlovid 300 mg (150 mg x 2)-100 mg tablets in a dose pack active Not Available Not Available Not Available cefazolin 2 gram solution for injection 2 g by injection route. 10/22 completed Not Available Not Available Not Available Vitals Date Recorded Body height Body mass index (BMI) Body weight Body temperature Oxygen saturation Oxygen saturation in Arterial blood by Pulse oximetry Heart rate Systolic And Diastolic Provider Name and Address Organization Details Last Updated DateTime 5 157.48 cm 30 kg/m2 04278.1 5 g 97.1 [degF] 98 % 98 % 69 /min 119/70 mm[Hg] [facility] [place] [facility] [place] 5 08:23:55 Social History Question Answer Notes LastModified by [employer] Details LastModified Time Tobacco Smoking Status Never Smoker Not Available [facility] 07/10/2022 05:51:27 Do You Have An Advance Directive? No Information not available 07/25/2022 Are You Blind Or Do You Have Difficulty Seeing? No [email or web address] Information not available 07/25/2022 What Is Your Level Of Caffeine Consumption? Moderate Information not available 12/17/2023 What Was The Date Of Your Most Recent Tobacco Screening? 07/22/2022 [email or web address] Information not available 07/25/2022 Are You Passively Exposed To Smoke? No [email or web address] Information not available 07/25/2022 Has Tobacco Cessation Counseling Been Provided? No Information not available 12/17/2023 Sex: Female Functional Status Question Answer Note LastModified by [employer] Details LastModified Time Do you use any illicit or recreational drugs? No [email or web address] Information not available 07/22/2022 Do you or have you ever used any other forms of tobacco or nicotine? No Information not available 12/17/2023 What is your level of alcohol consumption? None Information not available 07/22/2022 What is your exercise level? None [email or web address] Information not available 07/25/2022 Mental Status None recorded. Family History Relationship Description Onset Age of this Age Resolved Age Notes LastModified by Organization Details LastModified Time Sister Obesity [email or web address] Not availa ble 07/22/2022 10:07:59 Sister Diabetes mellitus [email or web address] Not available 02/28 08:20:09 Sister Malignant tumor of breast [email or web address] Not available 02/28 08:20:09 Sister Liver problem pt. added direct ly (07/27) [email or web address] Not available 07/27/2023 13:40:46 Brother Diabetes mellitus [email or web address] Not available 02/28 08:20:09 Brother Liver problem pt. added direct ly (07/27) [email or web address] Not available 07/27/2023 13:40:46 Father Hypertensive disorder [email or web address] Not available 07/2022 10:08:25 Father Heart disease [email or web address] Not available 07/2022 10:08:34 Mother Malignant tumor of breast [email or web address] Not available 02/28 08:20:09 Medical History Condition Response Anxiety Disorder Y Diabetes Y Autoimmune disease Y Other Y None Y Obesity Y Bleeding Disorder Y Congestive Heart Failure (CHF) Y Back Problems Y Thyroid Problems Y Hypothyroidism Y Asthma Y GI Problems Y Depression Y Clotting Disorder Y Anemia Y Reflux/GERD Y GERD/Reflux Y High Cholesterol N Liver Disease Y Headaches Y Hypertension N Gynecological History Statement/Question Response Menses Monthly N Abnormal Pap N Date of Last Pap Smear 03/18/2019 10/17/2020 Date of Last Colonoscopy 05/22/2022 Most Recent Bone Density 02/16/2009 Sexually Active? N Obstetrics History GPAL:G 0 P 0 0 0 0 Immunizations Vaccine Type Date Status Note Provider Nam e and Address Organization Details Recorded Time influenza, unspecified formulation 3 completed [facility] [place] [facility] [place] 12/08/2023 10:03:38 Influenza, split virus, trivalent, preservative 6 completed Not Available [facility] 10/24/2022 10:15:40 COVID-19, mRNA, LNP-S, PF, 100 mcg/0.5mL dose or 50 mcg/0.25mL dose 1 completed Not Available [facility] 10/24/2022 10:15:40 COVID-19, mRNA, LNP-S, PF, 100 mcg/0.5mL dose or 50 mcg/0.25mL dose 1 completed Not Available [facility] 10/24/2022 10:15:40 Past Encounters Encounter ID Performer Location Encounter Start Date Encounter Closed Date Diagnosis/Indication Diagnosis SNOMED-CT Code Diagnosis ICD10 Code Diagnosis Note [id number] Cindy Morales PA-C [facility] [address] [place] [address] 02/28/2025 08:19:47 02/28/2025 08:43:38 History of deep vein thrombosis 039417927 Z86.718 will review medical history and follow-up Factor 5 Leiden mutation not detected.Karen frye presents to the clinic on September 16, 2024. Discussed hypercoagu lable panel with patient as she has never had a workup. Will follow-up with further recommenda tions. Labs on September 16, 2024 with low protein S 55%, protein S, Factor 8 activity also slightly elevated over 150 at 165%. This also raises patient's risk for developing another blood clot would recommend prophylact ic anticoagul ation Eliquis 2.5 mg b.i.d.Kaylin ent presents to clinic on February 28, 2025. Patient continues on prophylact ic anticoagul ation will repeat labs. Carrier of hemochromatosis HFE gene mutation [id number] Z14.8 Patient labs via [facility] with white blood cell count 3.92 red blood cell count 3.37 hemoglobin 12.0 hematocrit 35.6 MCV 105.6 platelet count [id number] no differenti al performed. CMP with no evidence of chronic kidney disease low albumin 2.6 low calcium 8.1 elevated total bilirubin 1.5 AST significan tly elevated 101 ALT 32 alkaline phosphatas e 160 normal iron saturation and serum iron ferritin slightly elevated 164. Hereditary hemochroma tosis panel positive for heterozygo us C282Y mutation. Patient returns on February 28, 2025. Will repeat iron studies. Findings of single copy of hemochroma tosis mutation and thus carrier status. Recommend trying to maintain serum ferritin in the normal range. Will follow-up labs today. Health Concerns Section Related Observation LastModified by Organization Detai ls LastModified Time None Recorded Concern Status LastModified by Organization Details LastModified Time None Recorded Payers Encounter Date Sequence Insurance Name Policy Number Policy Jackson Covered Member ID Jackson Member ID Guarantor Name 02/28/2025 1 [place] (MEDICARE REPLACEMENT HMO) [id number] Melissa Ramirez Morrison [id number] Melissa Morrison Notes Date Note Type Note Provider Name and Address Organization Details Recorded Time 02/28/2025 text/html 59-year-old femgodfrey navarro returns for evaluation of DVT, and carrier status for hemochromatosis.Freddy mccallum has a past medical history of fatty liver disease, recurrent DVTs, , But not currently on any anticoagulation, hypertension, hyperthyroidism, Sjogren's. Patient labs via Gastro[facility] with white blood cell count 3.92 red blood cell count 3.37 hemoglobin 12.0 hematocrit 35.6 MCV 105.6 platelet count [id number] no differential performed. CMP with no evidence of chronic kidney disease low albumin 2.6 low calcium 8.1 elevated total bilirubin 1.5 AST significantly elevated 101 ALT 32 alkaline phosphatase 160 normal iron saturation and serum iron ferritin slightly elevated 164. Hereditary hemochromatosis panel positive for heterozygous C282Y mutation.Patient has completed multiple therapeutic phlebotomies most recently labs on December 17, 2023 with hemoglobin 11.6 hematocrit 34.8. Discussed with patient holding on therapeutic phlebotomies for 2-3 months.Patient presents to clinic on April 01, 2024. Patient denies any new acute complaints. Patient is up-to-date on mammogram and colonoscopy. Discussed repeating labs to evaluate if therapeutic phlebotomies are needed. Factor 5 Leiden mutation not detected.Patient presents to the clinic on September 16, 2024. Discussed hypercoagulable panel with patient as she has never had a workup. Will follow-up with further recommendations. Patient returns on February 28, 2025. Will repeat iron studies. Findings of single copy of hemochromatosis mutation and thus carrier status. Recommend trying to maintain serum ferritin in the normal range. Will follow-up labs today. Labs on September 16, 2024 with low protein S 55%, protein S, Factor 8 activity also slightly elevated over 150 at 165%. This also raises patient's risk for developing another blood clot would recommend prophylactic anticoagulation Eliquis 2.5 mg b.i.d.Patient presents to clinic on February 28, 2025. Patient continues on prophylactic anticoagulation will repeat labs. Cindy Morales PA-C [id number] [facility], [place], [address], [facility] [place] [facility] [place] [facility] [place] 02/28/2025 08:45:21 OBGyn Episode No OBEpisode recorded.
--- OUTSIDE RECORDS SUMMARY | 2025-04-25 10:52 | XMS_ITS | Data Portability ---
Author Organization [facility] HANG Kim ADMIN Address [address] [place] [id number] Care Team Providers Care Analytical Scientist Name Role Phone LIZANDRO FXO Primary Care Provider Assessment Encounter Date Assessment Date Assessment LastModified by Organization Details LastModified Time 06/10/2024 06/10/2024 I have personally reviewed the past medical, family, and social histories and ROS, along with all orders in today's record and have noted any changes. A [id number] electronic legal process specialist program has been utilized for much of this encounter note. Electronic legal process specialist of spoken language can sometimes lead to errors, and at times, nonsensical words or phrases may be inadvertently transcribed. Every effort has been taken to review and correct these, but some may still exist. If there are any questions regarding this note please contact my office at [phone]. Thank you [email or web address] Not available 06/10/2024 08:12:12 Plan of Treatment Reminders Order Date Submit Date Provider Last Modified By Organization Details Last Modified Time Details Appointments OV EST 20 2024 08:20A M Lamont Alaniz, WHITNEY, MOUNTAIN SERVICES MANAGER, BUFFING WHEEL PRESSER-C Not available Not available Not available OV EST 30 2024 09:30A M CARLINE RoweC Not available Not available Not available Lab iron saturatio n, serum 2024 025 [email or web address] [address] [place] [address] [place], [address], 03/08/2025 10:24:04 iron + TIBC + ferritin, serum 2024 025 [facility], [address] [place] [address] [place], [address], 03/08/2025 10:24:04 CBC w/ auto diff 2024 025 [facility], [address] [place] [address] [place], [address], 03/08/2025 10:24:05 CMP, serum or plasma [email or web address] [facility], [address] [place] [address] [place], [address], 03/08/2025 14:54:40 C-reactiv e protein, quantitat michael, serum or plasma 2024 025 [facility], [address] [place] [address] [place], [address], 03/08/2025 10:24:05 protein S activity, plasma 2024 025 [facility], [address] [place] [address] [place], [address], 03/02/2025 16:16:07 factor VIII activity, plasma 2024 025 [facility], [address] [place] [address] [place], [address], 03/02/2025 02:13:57 prothromb in (factor II) [id number] mutation, blood 2023 024 [facility], [address] [place] [address] [place], [address], 09/23/2024 12:09:52 factor VIII activity, plasma 2023 024 [facility], [address] [place] [address] [place], [address], 09/18/2024 14:15:53 protein C activity, plasma 2023 024 [facility], [address] [place] [address] [place], [address], 09/23/2024 12:09:52 protein S activity, plasma 2023 024 [facility], [address] [place] [address] [place], [address], 09/18/2024 06:15:36 antithrom bin activity, plasma 2023 024 [facility], [address] [place] [address] [place], [address], 09/23/2024 12:09:52 lupus anticoagu lant, plasma 2023 024 [facility], [address] [place] [address] [place], [address], 09/23/2024 12:09:52 anticardi olipin igg+igm+i ga Ab, serum 2023 024 [facility], [address] [place] [address] [place], [address], 09/23/2024 12:09:52 beta-2 glycoprot ein 1 iga+igg+i gm Ab, serum 2023 024 [facility], [address] [place] [address] [place], [address], 09/23/2024 12:09:53 CBC w/ auto diff 2023 024 [facility], [address] [place] [address] [place], [address], 09/23/2024 12:09:51 CMP, serum or plasma 2023 024 [facility] (Lab Registration) , [address] [place] [address] [place], [address], 09/23/2024 12:09:51 iron + TIBC + ferritin, serum 2023 024 [facility], [address] [place] [address] [place], [address], 09/23/2024 12:09:51 iron saturatio n, serum 2023 024 [facility], [address] [place] [address] [place], [address], 09/23/2024 12:09:52 CBC w/ auto diff 2023 024 [facility], [address] [place] [address] [place], [address], 04/08/2024 08:26:21 CMP, serum or plasma 2023 024 [facility] (Lab Registration) , [address] [place] [address] [place], [address], 04/08/2024 08:26:21 iron + TIBC + ferritin, serum 2023 024 [facility], [address] [place] [address] [place], [address], 04/08/2024 08:26:21 iron saturatio n, serum 2023 024 [facility], [address] [place] [address] [place], [address], 04/08/2024 08:26:21 factor V mutation, blood or tissue 2023 024 [facility], [address] [place] [address] [place], [address], 04/22/2024 11:18:35 Referral None recorded. Procedures None recorded. Surgeries None recorded. Imaging None recorded. Medication Orders None recorded. Patient TargetsNo targets recorded. Patient InstructionsNo instructions recorded. Reason for Referral None Reported. Results Created Date Observation Date Name Description Value Unit Range Abnormal Flag Note LastModifiedBy Organization Detail LastModifiedTime 12/08/19 24 12/09/2023 FE+TI BC+FE R iron bind.cap.(TI BC) 233 ug/dL 250-45 0 below low normal Not Available [facility] ([facility]) [address] [place], [address], 12/15/2023 03:35:41 12/08/19 24 12/09/2023 FE+TI BC+FE R UIBC 154 ug/dL 131-42 5 Not Available [facility] ([facility]) [address] [place], [address], 12/15/2023 03:35:41 12/08/19 24 12/09/2023 FE+TI BC+FE R iron 79 ug/dL 27-159 Not Available [facility] ([facility]) [address] [place], [address], 12/15/2023 03:35:41 12/08/19 24 12/09/2023 FE+TI BC+FE R iron saturation 34 % 15-55 Not Available [facility] ([facility]) [address] [place], [address], 12/15/2023 03:35:41 12/08/19 24 12/09/2023 FE+TI BC+FE R ferritin 53 NG/mL 15-150 Not Available [facility] ([facility]) [address] [place], [address], 12/15/2023 03:35:41 12/08/19 24 12/09/2023 TSH+F REE T4 TSH 1.170 uIU/m L 0.450- 4.500 Not Available [facility] ([facility]) [address] [place], [address], 12/15/2023 03:35:42 12/08/19 24 12/09/2023 TSH+F REE T4 T4,free(dire ct) 1.16 NG/dL 0.82-1 .77 Not Available [facility] ([facility]) [address] [place], [address], 12/15/2023 03:35:42 12/08/19 24 12/09/2023 CBC WITH DIFFE RENTI AL/PL ATELE T WBC 3.1 x10e3 /uL 3.4-10 .8 below low normal Not Available [facility] ([facility]) [address] [place], [address], 12/15/2023 03:35:43 12/08/19 24 12/09/2023 CBC WITH DIFFE RENTI AL/PL ATELE T RBC 3.31 x10e6 /uL 3.77-5 .28 below low normal Not Available [facility] ([facility]) [address] [facility], [place], [address], 12/15/2023 03:35:43 12/08/19 24 12/09/2023 CBC WITH DIFFE RENTI AL/PL ATELE T hemoglobin 11.5 g/dL 11.1-1 5.9 Not Available [facility] ([facility]) [address] [place], [address], 12/15/2023 03:35:43 12/08/19 24 12/09/2023 CBC WITH DIFFE RENTI AL/PL ATELE T hematocrit 33.6 % 34.0-4 6.6 below low normal Not Available [facility] ([facility]) [address] [place], [address], 12/15/2023 03:35:43 12/08/19 24 12/09/2023 CBC WITH DIFFE RENTI AL/PL ATELE T MCV 102 fL 79-97 above high normal Not Available [facility] ([facility]) [address] [place], [address], 12/15/2023 03:35:43 12/08/19 24 12/09/2023 CBC WITH DIFFE RENTI AL/PL ATELE T MCH 34.7 pg 26.6-3 3.0 above high normal Not Available [facility] ([facility]) [address], [place], [address], 12/15/2023 03:35:43 12/08/19 24 12/09/2023 CBC WITH DIFFE RENTI AL/PL ATELE T MCHC 34.2 g/dL 31.5-3 5.7 Not Available [facility] ([facility]) [address] [facility], [place], [address], 12/15/2023 03:35:43 12/08/19 24 12/09/2023 CBC WITH DIFFE RENTI AL/PL ATELE T RDW 12.5 % 11.7-1 5.4 Not Available [facility] ([facility]) [address] [facility], [place], [address], 12/15/2023 03:35:43 12/08/19 24 12/09/2023 CBC WITH DIFFE RENTI AL/PL ATELE T platelets 196 x10e3 /uL 150-45 0 Not Available [facility] ([facility]) [address] [facility], [place], [address], 12/15/2023 03:35:43 12/08/19 24 12/09/2023 CBC WITH DIFFE RENTI AL/PL ATELE T neutrophils 58 % not estab. Not Available [facility] ([facility]) [address] [facility], [place], [address], 12/15/2023 03:35:43 12/08/19 24 12/09/2023 CBC WITH DIFFE RENTI AL/PL ATELE T lymphs 29 % not estab. Not Available [facility] ([facility]) [address] [facility], [place], [address], 12/15/2023 03:35:43 12/08/19 24 12/09/2023 CBC WITH DIFFE RENTI AL/PL ATELE T monocytes 11 % not estab. Not Available [facility] ([facility]) [address] [facility], [place], [address], 12/15/2023 03:35:43 12/08/19 24 12/09/2023 CBC WITH DIFFE RENTI AL/PL ATELE T eos 2 % not estab. Not Available [facility] ([facility]) [address] [place], [address], 12/15/2023 03:35:43 12/08/19 24 12/09/2023 CBC WITH DIFFE RENTI AL/PL ATELE T basos 0 % not estab. Not Available [facility] ([facility]) [address] [place], [address], 12/15/2023 03:35:43 12/08/19 24 12/09/2023 CBC WITH DIFFE RENTI AL/PL ATELE T immature cells BUFFING WHEEL PRESSER Not Available [facility] ([facility]) [address] [place], [address], 12/15/2023 03:35:43 12/08/19 24 12/09/2023 CBC WITH DIFFE RENTI AL/PL ATELE T neutrophils (absolute) 1.8 x10e3 /uL 1.4-7. 0 Not Available [facility] ([facility]) [address] [place], [address], 12/15/2023 03:35:43 12/08/19 24 12/09/2023 CBC WITH DIFFE RENTI AL/PL ATELE T lymphs (absolute) 0.9 x10e3 /uL 0.7-3. 1 Not Available [facility] ([facility]) [address] [place], [address], 12/15/2023 03:35:43 12/08/19 24 12/09/2023 CBC WITH DIFFE RENTI AL/PL ATELE T monocytes(ab solute) 0.4 x10e3 /uL 0.1-0. 9 Not Available [facility] ([facility]) [address] [place], [address], 12/15/2023 03:35:43 12/08/19 24 12/09/2023 CBC WITH DIFFE RENTI AL/PL ATELE T eos (absolute) 0.1 x10e3 /uL 0.0-0. 4 Not Available [facility] ([facility]) [address] [facility], [place], [address], 12/15/2023 03:35:43 12/08/19 24 12/09/2023 CBC WITH DIFFE RENTI AL/PL ATELE T baso (absolute) 0.0 x10e3 /uL 0.0-0. 2 Not Available [facility] ([facility]) [address] [facility], [place], [address], 12/15/2023 03:35:43 12/08/19 24 12/09/2023 CBC WITH DIFFE RENTI AL/PL ATELE T immature granulocytes 0 % not estab. Not Available [facility] ([facility]) [address] [facility], [place], [address], 12/15/2023 03:35:43 12/08/19 24 12/09/2023 CBC WITH DIFFE RENTI AL/PL ATELE T immature grans (abs) 0.0 x10e3 /uL 0.0-0. 1 Not Available [facility] ([facility]) [address] [facility], [place], [address], 12/15/2023 03:35:43 12/08/19 24 12/09/2023 CBC WITH DIFFE RENTI AL/PL ATELE T NRBC BUFFING WHEEL PRESSER Not Available [facility] ([facility]) [address] [facility], [place], [address], 12/15/2023 03:35:43 12/08/19 24 12/09/2023 CBC WITH DIFFE RENTI AL/PL ATELE T hematology comments: BUFFING WHEEL PRESSER Not Available [facility] ([facility]) [address] [facility], [place], [address], 12/15/2023 03:35:43 12/08/19 24 12/09/2023 COMP. METAB OLIC PANEL (14) glucose 45 mg/dL 70-99 below low normal Not Available [facility] ([facility]) [address] [place], [address], 12/15/2023 03:35:44 12/08/19 24 12/09/2023 COMP. METAB OLIC PANEL (14) BUN 15 mg/dL 8-27 Not Available [facility] ([facility]) [address] [place], [address], 12/15/2023 03:35:44 12/08/19 24 12/09/2023 COMP. METAB OLIC PANEL (14) creatinine 0.77 mg/dL 0.57-1 .00 Not Available [facility] ([facility]) [address] [place], [address], 12/15/2023 03:35:44 12/08/19 24 12/09/2023 COMP. METAB OLIC PANEL (14) eGFR 88 mL/mi n/1.7 3 >59 Not Available [facility] ([facility]) [address] [place], [address], 12/15/2023 03:35:44 12/08/19 24 12/09/2023 COMP. METAB OLIC PANEL (14) BUN/creatini ne ratio 19 12-28 Not Available [facility] ([facility]) [address] [place], [address], 12/15/2023 03:35:44 12/08/19 24 12/09/2023 COMP. METAB OLIC PANEL (14) sodium 143 mmol/ L 134-14 4 Not Available [facility] ([facility]) [address] [place], [address], 12/15/2023 03:35:44 12/08/19 24 12/09/2023 COMP. METAB OLIC PANEL (14) potassium 4.2 mmol/ L 3.5-5. 2 Not Available [facility] ([facility]) [address] [facility] [place], [address], 12/15/2023 03:35:44 12/08/19 24 12/09/2023 COMP. METAB OLIC PANEL (14) chloride 108 mmol/ L 96-106 above high normal Not Available [facility] ([facility]) [address] [place], [address], 12/15/2023 03:35:44 12/08/19 24 12/09/2023 COMP. METAB OLIC PANEL (14) carbon dioxide, total 24 mmol/ L 20-29 Not Available [facility] ([facility]) [address] [place], [address], 12/15/2023 03:35:44 12/08/19 24 12/09/2023 COMP. METAB OLIC PANEL (14) calcium 9.1 mg/dL 8.7-10 .3 Not Available [facility] ([facility]) [address] [facility] [place], [address], 12/15/2023 03:35:44 12/08/19 24 12/09/2023 COMP. METAB OLIC PANEL (14) protein, total 6.3 g/dL 6.0-8. 5 Not Available [facility] ([facility]) [address] [facility] [place], [address], 12/15/2023 03:35:44 12/08/19 24 12/09/2023 COMP. METAB OLIC PANEL (14) albumin 3.4 g/dL 3.8-4. 9 below low normal Not Available [facility] ([facility]) [address] [facility] [place], [address], 12/15/2023 03:35:44 12/08/19 24 12/09/2023 COMP. METAB OLIC PANEL (14) globulin, total 2.9 g/dL 1.5-4. 5 Not Available [facility] ([facility]) [address] [place], [address], 12/15/2023 03:35:44 12/08/19 24 12/09/2023 COMP. METAB OLIC PANEL (14) A/G ratio 1.2 1.2-2. 2 Not Available [facility] ([facility]) [address] [place], [address], 12/15/2023 03:35:44 12/08/19 24 12/09/2023 COMP. METAB OLIC PANEL (14) bilirubin, total 0.6 mg/dL 0.0-1. 2 Not Available [facility] ([facility]) [address] [place], [address], 12/15/2023 03:35:44 12/08/19 24 12/09/2023 COMP. METAB OLIC PANEL (14) alkaline phosphatase 134 IU/L 44-121 above high normal Not Available [facility] ([facility]) [address] [place], [address], 12/15/2023 03:35:44 12/08/19 24 12/09/2023 COMP. METAB OLIC PANEL (14) AST (SGOT) 54 IU/L 0-40 above high normal Not Available [facility] ([facility]) [address] [facility] [place], [address], 12/15/2023 03:35:44 12/08/19 24 12/09/2023 COMP. METAB OLIC PANEL (14) ALT (SGPT) 36 IU/L 0-32 above high normal Not Available [facility] ([facility]) [address] [facility] [place], [address], 12/15/2023 03:35:44 12/08/19 24 12/09/2023 LIPID PANEL cholesterol, total 107 mg/dL 100-19 9 Not Available [facility] ([facility]) [address] [facility], [place], [address], 12/15/2023 03:35:46 12/08/19 24 12/09/2023 LIPID PANEL triglyceride s 32 mg/dL 0-149 Not Available [facility] ([facility]) [address] [place], [address], 12/15/2023 03:35:46 12/08/19 24 12/09/2023 LIPID PANEL HDL cholesterol 61 mg/dL >39 Not Available [facility] ([facility]) [address] [place], [address], 12/15/2023 03:35:46 12/08/19 24 12/09/2023 LIPID PANEL VLDL cholesterol nehemiah 10 mg/dL 5-40 Not Available [facility] ([facility]) [address] [place], [address], 12/15/2023 03:35:46 12/08/19 24 12/09/2023 LIPID PANEL LDL chol calc ([facility]) 36 mg/dL 0-99 Not Available [facility] ([facility]) [address] [place], [address], 12/15/2023 03:35:46 12/08/19 24 12/09/2023 LIPID PANEL comment: BUFFING WHEEL PRESSER Not Available [facility] ([facility]) [address] [place], [address], 12/15/2023 03:35:46 12/08/19 24 12/14/2023 VITAM IN E vitamin E(alpha tocopherol) 6.8 mg/L 9.0-29 .0 below low normal Not Available [facility] ([facility]) [address] [place], [address], 12/15/2023 03:35:46 12/08/19 24 12/14/2023 VITAM IN E vitamin E(gamma tocopherol) 0.9 mg/L 0.5-4. 9 Refer ence inter vals for alpha and gamma -toco phero l deter mined from [facility] Nutri tion Exami natio n Surve y, 2004- 2005. Indiv idual s with alpha -toco phero l level s less than 5.0 mg/L are consi dered vitam in E defic ient. Not Available [facility] ([facility]) [address] [facility], [place], [address], 12/15/2023 03:35:46 12/08/19 24 12/09/2023 HEMOG LOBIN A1C hemoglobin A1C 4.6 % 4.8-5. 6 below low normal Predi abete s: 5.7 - 6.4 Diabe dmitri: >6.4 Glyce yasir contr ol for adult s with diabe dmitri: <7.0 Not Available [facility] ([facility]) [address] [facility], [place], [address], 12/15/2023 03:35:47 12/08/19 24 12/09/2023 FOLAT E (FOLI C ACID) , SERUM folate (folic acid), serum 4.5 NG/mL >3.0 A serum folat e enrique ntrat ion of less than 3.1 ng/mL is consi dered to repre sent clini nehemiah defic iency . Not Available [facility] ([facility]) [address] [facility], [place], [address], 12/15/2023 03:35:48 12/08/1912/14/2023 VITAM IN A, SERUM vitamin A 3.5 ug/dL 22.0-6 9.5 below low normal Refer ence inter vals for vitam in A deter mined from [facility] inter nal studi es. Indiv idual s with vitam in A less than 20 ug/dL are consi dered vitam in A defic ient and those with serum enrique ntrat ions less than 10 ug/dL are consi dered sever merritt defic ient. This test was devel oped and its perfo rmanc e debbie cteri stics deter mined by [facility]. It has not been clear ed or appro swati by the Food and Drug Admin istra tion. Not Available [facility] ([facility]) [address] [facility], [place], [address], 12/15/2023 03:35:49 12/08/19 24 12/09/2023 VITAM IN D, 25-HY DROXY vitamin D, 25-hydroxy 65.2 NG/mL 30.0-1 00.0 Vitam in D defic iency has been defin ed by the Insti tute of Medic ine and an Endoc rine Socie ty pract ice guide line as a level of serum 25-OH vitam in D less than 20 ng/mL (1,2) . The Endoc rine Socie ty went on to furth er defin e vitam in D insuf ficie ncy as a level betwe en 21 and 29 ng/mL (2). 1. IOM (Inst itute of Medic ine). 2010. Uli ry refer brennene greg es for calci um and D. Ange lentz [place]: The [facility] Press . 2. Danny burk MF, Jadyn terry [place], Keri off-F errar i SYED, et al. Evalu ation , treat ment, and preve ntion of vitam in D defic iency : an Endoc rine Socie ty clini nehemiah pract ice guide line. JCEM. 2010; 96(7) :1911 -30. Not Available [facility] ([facility]) [address] [facility], [place], [address], 12/15/2023 03:35:50 12/08/19 24 12/14/2023 VITAM IN B1 (THIA MINE) , BLOOD vit. B1, whole blood 117.9 nmol/ L 66.5-2 00.0 Not Available [facility] ([facility]) [address] [facility], [place], [address], 12/15/2023 03:35:51 12/08/19 24 12/14/2023 METHY LMALO JABARI ACID, SERUM methylmaloni c acid, serum 271 nmol/ L 0-378 Not Available [facility] ([facility]) [address] [facility], [place], [address], 12/15/2023 03:35:52 12/08/19 24 12/12/2023 COPPE R, SERUM OR PLASM A copper, serum or plasma 46 ug/dL 80-158 below low normal Detec tion Limit = 5 Not Available [facility] ([facility]) [address] [place], [address], 12/15/2023 03:35:53 12/08/19 24 12/12/2023 ZINC, PLASM A OR SERUM zinc, plasma or serum 43 ug/dL 44-115 below low normal Detec tion Limit = 5 Not Available [facility] ([facility]) [address] [facility], [place], [address], 12/15/2023 03:35:54 12/08/19 24 12/09/2023 PREAL BUMIN prealbumin 10 mg/dL 10-36 Not Available [facility] ([facility]) [address] [facility], [place], [address], 12/15/2023 03:35:54 12/08/19 24 12/11/2023 SELEN IUM, BLOOD selenium, blood 180 ug/L 100-34 0 Detec tion Limit = 10 Not Available [facility] ([facility]) [address] [place], [address], 12/15/2023 03:35:55 12/17/19 24 12/17/2023 HEMOG LOBIN HGB 11.6 g/dL 12.0-1 5.0 low Not Available [facility] ([facility]) [address] [place] [address] [place], [address], 12/17/2023 09:58:29 12/17/19 24 12/17/2023 HEMOG LOBIN HCT 34.8 % 35-49 low Not Available [facility] ([facility]) [address] [place] [address] [place], [address], 12/17/2023 09:58:29 12/17/19 24 12/17/2023 HEMOG LOBIN note Kaz ayala other owusu noted testi ng perfo [facility]med at[facility] [address] [facility] [place] [address] Wayne ayala MD Not Available [facility] ([facility]Op [facility]) [address] [place] [address] [place], [address], 12/17/2023 09:58:29 12/17/19 24 12/17/2023 GERRI TIN ferritin 22 NG/mL 3-105 Not Available [facility] ([facility]) [address] [place] [address] [place], [address], 12/17/2023 11:03:15 12/17/19 24 12/17/2023 GERRI TIN note Kaz ayala other owusu noted testi ng perfo rmed at: [facility] [address] [place] [address] Wayne ayala MD Not Available [facility] ([facility]Op [facility]) [address] [place] [address] [place], [address], 12/17/2023 11:03:15 01/20/20 24 01/20/2024 HEMOG LOBIN HGB 12.4 g/dL 12.0-1 5.0 Not Available [facility] ([facility]) [address] [place] [address] [place], [address], 01/20/2024 08:50:15 01/20/20 24 01/20/2024 HEMOG LOBIN HCT 36.6 % 35-49 Not Available [facility] ([facility]) [address] [place] [address] [place], [address], 01/20/2024 08:50:15 01/20/20 24 01/20/2024 HEMOG LOBIN note Kaz ayala other owusu noted testi ng perfo [facility]med at: [facility] [address] [place] [address] Wayne ayala MD Not Available [facility] ([facility]Op [facility]) [address] [facility] [place], [address], 01/20/2024 08:50:15 01/20/20 24 01/20/2024 GERRI TIN ferritin 16 NG/mL 3-105 Not Available [facility] (Pre-Op Clinic) [address] [facility] [place], [address], 01/20/2024 10:10:43 01/20/20 24 01/20/2024 GERRI TIN note Unles s other owusu noted testi ng perfo rmed at: [facility] [address] [place] [address] Wayne ayala MD Not Available [facility] (Pre-Op Clinic) [address] [facility] [place], [address], 01/20/2024 10:10:43 04/01/20 24 04/01/2024 CBC W/ AUTO DIFF WBC 3.88 K/uL 4.5-11 .5 low Not Available [facility] (Pre-Op Clinic) [address] [place] [address] [place], [address], 04/01/2024 15:07:35 04/01/20 24 04/01/2024 CBC W/ AUTO DIFF RBC 3.76 M/uL 4.0-5. 4 low Not Available [facility] (Pre-Op Clinic) [address] [place] [address] [place], [address], 04/01/2024 15:07:35 04/01/20 24 04/01/2024 CBC W/ AUTO DIFF HGB 12.8 g/dL 12.0-1 5.0 Not Available [facility] (Pre-Op Clinic) [address] [place] [address] [place], [address], 04/01/2024 15:07:35 04/01/20 24 04/01/2024 CBC W/ AUTO DIFF HCT 37.7 % 35-49 Not Available [facility] (Pre-Op Clinic) [address] [place] [address] [place], [address], 04/01/2024 15:07:35 04/01/20 24 04/01/2024 CBC W/ AUTO DIFF MCV 100.3 fL 80.0-1 00.0 high Not Available [facility] (Pre-Op Clinic) [address] [place] [address] [place], [address], 04/01/2024 15:07:35 04/01/20 24 04/01/2024 CBC W/ AUTO DIFF MCH 34.0 pg 26.0-3 2.0 high Not Available [facility] (Pre-Op Clinic) [address] [place] [address] [place], [address], 04/01/2024 15:07:35 04/01/20 24 04/01/2024 CBC W/ AUTO DIFF MCHC 34.0 g/dL 32.0-3 6.0 Not Available [facility] (Pre-Op Clinic) [address] [place] [address] [place], [address], 04/01/2024 15:07:35 04/01/20 24 04/01/2024 CBC W/ AUTO DIFF RDW 12.0 % 11.5-1 4.5 Not Available [facility] (Pre[facility]Op Clinic) [address] [place] [address] [place], [address], 04/01/2024 15:07:35 04/01/20 24 04/01/2024 CBC W/ AUTO DIFF platelet count 199 K/uL 142-42 4 Not Available [facility] (Pre-Op Clinic) [address] [place] [address] [place], [address], 04/01/2024 15:07:35 04/01/20 24 04/01/2024 CBC W/ AUTO DIFF MPV 10.5 fL 6.8-10 .2 high Not Available [facility] (Pre-Op Clinic) [address] [place] [address] [place], [address], 04/01/2024 15:07:35 04/01/20 24 04/01/2024 CBC W/ AUTO DIFF neutrophil % 52.5 % 50-70 Not Available [facility] (Pre[facility]Op Clinic) [address] [place] [address] [place], [address], 04/01/2024 15:07:35 04/01/20 24 04/01/2024 CBC W/ AUTO DIFF lymphocyte % 33.0 % 18.0-4 2.0 Not Available [facility] (Pre-Op Clinic) [address] [place] [address] [place], [address], 04/01/2024 15:07:35 04/01/20 24 04/01/2024 CBC W/ AUTO DIFF monocyte % 9.5 % 2.0-11 .0 Not Available [facility] (Pre[facility]Op Clinic) [address] [facility] [place], [address], 04/01/2024 15:07:35 04/01/20 24 04/01/2024 CBC W/ AUTO DIFF eosinophil % 4.4 % 1.0-3. 0 high Not Available [facility] (Pre[facility]Op Clinic) [address] [place] [address] [place], [address], 04/01/2024 15:07:35 04/01/20 24 04/01/2024 CBC W/ AUTO DIFF basophil % 0.3 % 0.0-2. 0 Not Available [facility] (Pre[facility]Op Clinic) [address] [place] [address] [place], [address], 04/01/2024 15:07:35 04/01/20 24 04/01/2024 CBC W/ AUTO DIFF immature granulocytes % 0.3 % 0.0-0. 8 Not Available [facility] (Pre-Op Clinic) [address] [place] [address] [place], [address], 04/01/2024 15:07:35 04/01/20 24 04/01/2024 CBC W/ AUTO DIFF nucleated red blood cells % 0.0 % Not Available [facility] (Pre-Op Clinic) [address] [place] [address] [place], [address], 04/01/2024 15:07:35 04/01/20 24 04/01/2024 CBC W/ AUTO DIFF neutrophil # 2.04 K/uL Not Available [facility] (Pre[facility]Op Clinic) [address] [facility] [place], [address], 04/01/2024 15:07:35 04/01/20 24 04/01/2024 CBC W/ AUTO DIFF lymphocyte # 1.28 K/uL Not Available [facility] (Pre[facility]Op Clinic) [address] [place] [address] [place], [address], 04/01/2024 15:07:35 04/01/20 24 04/01/2024 CBC W/ AUTO DIFF monocyte # 0.37 K/uL Not Available [facility] (Pre[facility]Op Clinic) [address] [place] [address] [place], [address], 04/01/2024 15:07:35 04/01/20 24 04/01/2024 CBC W/ AUTO DIFF eosinophil # 0.17 K/uL Not Available [facility] (Pre[facility]Op Clinic) [address] [place] [address] [place], [address], 04/01/2024 15:07:35 04/01/20 24 04/01/2024 CBC W/ AUTO DIFF basophil # 0.01 K/uL Not Available [facility] (Pre-Op Clinic) [address] [place] [address] [place], [address], 04/01/2024 15:07:35 04/01/20 24 04/01/2024 CBC W/ AUTO DIFF immature gramulocytes # 0.01 K/uL Not Available [facility] (Pre-Op Clinic) [address] [place] [address] [place], [address], 04/01/2024 15:07:35 04/01/20 24 04/01/2024 CBC W/ AUTO DIFF nucleated red blood cells # 0.00 k/uL Not Available [facility] (Pre-Op Clinic) [address] [place] [address] [place], [address], 04/01/2024 15:07:35 04/01/20 24 04/01/2024 CBC W/ AUTO DIFF manual differential NO Not Available [facility] (Pre[facility]Op Clinic) [address] [facility] [place], [address], 04/01/2024 15:07:35 04/01/20 24 04/01/2024 CBC W/ AUTO DIFF note Unles s other owusu noted testi ng perfo rmed at: [facility] [address] [place] [address] Wayne ayala MD Not Available [facility] (Pre[facility]Op [facility]) [address] [facility] [place], [address], 04/01/2024 15:07:35 04/01/20 24 04/01/2024 COMP METAB OLIC PANEL sodium 142 mmol/ L 137-14 7 Not Available [facility] (Pre[facility]Op [facility]) [address] [place] [address] [place], [address], 04/01/2024 16:05:21 04/01/20 24 04/01/2024 COMP METAB OLIC PANEL potassium 3.9 mmol/ L 3.5-5. 1 Not Available [facility] (Pre-Op Clinic) [address] [place] [address] [place], [address], 04/01/2024 16:05:21 04/01/20 24 04/01/2024 COMP METAB OLIC PANEL chloride 102 mmol/ L 98-110 Not Available [facility] (Pre-Op Clinic) [address] [place] [address] [place], [address], 04/01/2024 16:05:21 04/01/20 24 04/01/2024 COMP METAB OLIC PANEL carbon dioxide 29 mmol/ L 21-30 Not Available [facility] (Pre-Op Clinic) [address] [place] [address] [place], [address], 04/01/2024 16:05:21 04/01/20 24 04/01/2024 COMP METAB OLIC PANEL anion gap 11 mmol/ L 6-14 Not Available [facility] (Pre[facility]Op [facility]) [address] [facility] [place], [address], 04/01/2024 16:05:21 04/01/20 24 04/01/2024 COMP METAB OLIC PANEL glucose 60 mg/dL 70-115 low Not Available [facility] (Pre-Op Clinic) [address] [place] [address] [place], [address], 04/01/2024 16:05:21 04/01/20 24 04/01/2024 COMP METAB OLIC PANEL BUN 18 mg/dL 7-17 high Not Available [facility] (Pre[facility]Op [facility]) [address] [place] [address] [place], [address], 04/01/2024 16:05:21 04/01/20 24 04/01/2024 COMP METAB OLIC PANEL creatinine 0.8 mg/dL 0.5-1. 5 Not Available [facility] (Pre-Op Clinic) [address] [place] [address] [place], [address], 04/01/2024 16:05:21 04/01/20 24 04/01/2024 COMP METAB OLIC PANEL BUN/creatini ne ratio 23 ratio 10-20 high Not Available [facility] (Pre-Op Clinic) [address] [place] [address] [place], [address], 04/01/2024 16:05:21 04/01/20 24 04/01/2024 COMP METAB OLIC PANEL glom filtration rate 84 mL/mi n >60- Not Available [facility] (Pre-Op Clinic) [address] [place] [address] [place], [address], 04/01/2024 16:05:21 04/01/20 24 04/01/2024 COMP METAB OLIC PANEL osmolality (calculated) 295 mosmo l/kg 275-30 1 OSMOL ALITY IS A CALCU LATIO N UTILI ZING THE SERUM /PLAS MA SODIU M, GLUCO SE AND UREA NITRO GEN (BUN) LEVEL S. FOR THE MOST ACCUR ATE RESUL T A MEASU RED SERUM OSMOL ALITY IS SUGBETH GEMD. Not Available [facility] (Pre-Op [facility]) [address] [place] [address] [place], [address], 04/01/2024 16:05:21 04/01/20 24 04/01/2024 COMP METAB OLIC PANEL total protein 6.2 g/dL 6.2-8. 2 Not Available [facility] (Pre[facility]Op [facility]) [address] [place] [address] [place], [address], 04/01/2024 16:05:21 04/01/20 24 04/01/2024 COMP METAB OLIC PANEL albumin 3.6 g/dL 3.5-5. 0 Not Available [facility] (Pre[facility]Op [facility]) [address] [place] [address] [place], [address], 04/01/2024 16:05:21 04/01/20 24 04/01/2024 COMP METAB OLIC PANEL calcium 8.9 mg/dL 8.5-10 .8 Not Available [facility] (Pre-Op Clinic) [address] [place] [address] [place], [address], 04/01/2024 16:05:21 04/01/20 24 04/01/2024 COMP METAB OLIC PANEL bilirubin total 0.7 mg/dL 0.2-1. 3 Not Available [facility] (Pre-Op Clinic) [address] [place] [address] [place], [address], 04/01/2024 16:05:21 04/01/20 24 04/01/2024 COMP METAB OLIC PANEL AST (SGOT) 54 IU/L 14-36 high Not Available [facility] (Pre-Op Clinic) [address] [place] [address] [place], [address], 04/01/2024 16:05:21 04/01/20 24 04/01/2024 COMP METAB OLIC PANEL ALT (SGPT) 39 IU/L 0-35 high Pleas e note new refer ence inter suleman for ALT. Due to a recen t manuf actur er metho dolog y paige e, the refer ence inter suleman for ALT is lower effec tive February 01, 2021. Not Available [facility] (Pre[facility]Op [facility]) [address] [place] [address] [place], [address], 04/01/2024 16:05:21 04/01/20 24 04/01/2024 COMP METAB OLIC PANEL alk phosphatase 155 IU/L 38-126 high Not Available [facility] (Pre-Op Clinic) [address] [place] [address] [place], [address], 04/01/2024 16:05:21 04/01/20 24 04/01/2024 COMP METAB OLIC PANEL note Unles s other owusu noted testi ng perfo rmed at: [facility] [address] [facility] [place] [address] Wayne ayala MD Not Available [facility] (Pre[facility]Op [facility]) [address] [place] [address] [place], [address], 04/01/2024 16:05:21 04/01/20 24 04/01/2024 IRON STUDY W FE/TI BC/UI BC/%S AT iron 86 ug/dL 37-170 Not Available [facility] (Pre[facility]Op [facility]) [address] [place] [address] [place], [address], 04/01/2024 16:17:14 04/01/20 24 04/01/2024 IRON STUDY W FE/TI BC/UI BC/%S AT total iron bind cap. 362 ug/dL 265-49 7 Not Available [facility] (Pre-Op Clinic) [address] [place] [address] [place], [address], 04/01/2024 16:17:14 04/01/20 24 04/01/2024 IRON STUDY W FE/TI BC/UI BC/%S AT unsaturated iron binding cap 276 ug/dL 150-37 5 Not Available [facility] (Pre[facility]Op Clinic) [address] [facility] [place], [address], 04/01/2024 16:17:14 04/01/20 24 04/01/2024 IRON STUDY W FE/TI BC/UI BC/%S AT % saturation 24 % 15-55 Not Available [facility] (Pre[facility]Op [facility]) [address] [facility] [place], [address], 04/01/2024 16:17:14 04/01/20 24 04/01/2024 IRON STUDY W FE/TI BC/UI BC/%S AT note Unles s other owusu noted testi ng perfo rmed at: [facility] [address] [place] [address] Wayne ayala MD Not Available [facility] (Pre[facility]Op [facility]) [address] [facility] [place], [address], 04/01/2024 16:17:14 04/01/20 24 04/01/2024 GERRI TIN ferritin 14 NG/mL 3-105 Not Available [facility] (Pre[facility]Op Clinic) [address] [place] [address] [place], [address], 04/01/2024 16:55:10 04/01/20 24 04/01/2024 GERRI TIN note Unles s other owusu noted testi ng perfo rmed at: [facility] [address] [place] [address] Wayne ayala MD Not Available [facility] (Pre[facility]Op Clinic) [address] [facility] [place], [address], 04/01/2024 16:55:10 04/01/20 24 04/01/2024 FACTO R 5 LEIDE N MUTAT ION ASSAY note Unles s other owusu noted testi ng perfo rmed at: [facility] [address] [place] [address] Wayne ayala MD Not Available [facility] (Pre-Op Clinic) [address] [place] [address] [place], [address], 04/22/2024 11:18:35 04/01/20 24 04/22/2024 FACTO R 5 LEIDE N MUTAT ION ASSAY factor V leiden COMMEN T Resul t: c.160 1G>A (p.Ar g534G ln) - Not Detec pina . This resul t is not assoc iated with an incre ased risk for [place] ous throm boemb olism . See Addit ional Clini nehemiah Infor matio n and Comme nts. . Addit ional Clini nehemiah Infor matio n: Venou s throm boemb olism is a multi facto rial disea se influ enced by cristina ic, envir onkitty cornelia, and circu mstan tial risk facto rs. The c.160 1G>A (p. Arg53 4Gln) varia nt in the F5 gene, commo nly refer red to as Facto r V Leide n, is a cristina ic risk facto r for venou s throm boemb olism . Heter ozygo us abdelrahman ers of this varia nt have a 6- to 8- fold incre ased risk for venou s throm boemb olism . Indiv idual s homoz ygous for this varia nt (ie, with a copy of the varia nt on each chrom osome ) have an appro ximat merritt 80-fo ld incre ased risk for venou s throm boemb olism . Indiv idual s who carry both a c.*97 G>A varia nt in the F2 gene and Facto r V Leide n have an appro ximat merritt 20-fo ld incre ased risk for venou s throm boemb olism . Risks are likel y to be even highe r in more compl ex genot ype combi natio ns invol ving the F2 c.*97 G>A varia nt and Facto r V Leide n (PMID : [id number]). Addit ional risk facto rs inclu de but are not limit ed to: defic iency of prote in C, prote in S, or antit hromb in III, age, male sex, perso nal or famil y histo ry of deep vein throm boemb olism , smoki ng, surge ry, prolo nged immob iliza tion, malig nant neopl asm, tamox ifen treat ment, ralox ifene treat ment, oral contr acept michael use, hormo ne repla cemen t thera py, and pregn neymar. Manag ement of throm botic risk and throm botic event s shoul d follo w estab lishe d guide lines and fit the clini nehemiah circu mstan ce. This resul t canno t predi ct the occur rence or recur rence of a throm botic event . . Comme nt: Cristina ic couns nettie is recom jamaal d to discu ss the poten tial clini nehemiah impli catio ns of posit michael resul ts, as well as recom menda tions for testi ng famil y membe rs. . Cristina ic Coord inato rs are avail able for healt h care provi ders to discu ss resul ts at [phone] . Test Detai ls: Varia nt John zed: c.160 1G>A (p. Arg53 4Gln) , refer red to as Facto r V Leide n . Metho ds/Li mitat ions: DNA john sis of the F5 gene ([id number]) was perfo rmed by PCR ampli ficat ion follo wed by restr ictio n enzym e john sis. The diagn ostic sensi tivit y is >99%. Resul ts must be combi anthony with clini nehemiah infor matio n for the most accur ate inter preta tion. Molec ular- based testi ng is highl y accur ate, but as in any labor atory test, diagn ostic error s may occur . False posit michael or false negat michael resul ts may occur for reaso ns that inclu de cristina ic varia nts, blood trans fusio ns, bone marro w trans plant ation , somat ic or tissu e-spe cific mosai cism, misla beled sampl es, or johanna eous repre senta tion of famil y relat ionsh ips. . This test was devel oped and its perfo rmanc e debbie cteri stics deter mined by [employer] [facility]. It has not been clear ed or appro swati by the Food and Drug Admin istra tion. . Refer ences : Cristian Ayala, Lissy HERNANDEZ, Yuliana Mads[place], Wilfrido Wheat in JH; [facility] Profe ssion al Pract ice and Guide lines Commi ttee. Adden dum: Carrie [facility]eb[facility]ah [facility] Cristina ics conse nsus state ment on facto r V Leide n mutat ion testi ng. Cristina Med. 2020Dec 15. doi: 10.10 38/s4 1436- 021-0 1108- x. PMID: 45061 767. . Stephania townsend JL. Facto r V Leide n Throm bophi susan. 1998February 23 (Upda pina 2017Oct 16). In: Dov MP, Suman salinas HH, Anastasiia RA, et al., verenaito rs. GeneR amber ayala(R) (Inte rnet) . Dhruv navarro (YUMI): Unive rsity of Dhruv Li; 1992- 2020. Avail able from: https ://candice w.ncb i.nlm .nih. gov/b ooks/ NBK13 68/ . Sarath S, Lissy HERNANDEZ, Sincere X, Misha B, Spect or EB, Mary P, Jodee ford CS; [facility] Labor atory Quali ty Assur ance Commi ttee. Venou s throm boemb olism labor atory testi ng (fact or V Leide n and facto r II c.*97 G>A), 2018 updat e: a techn ical stand farida of the Carrie can [facility] Cristina ics and Gen[employer] ics ([facility] ). Cristina Med. 2018 Sep;2 0(12) :1489 -1498 . doi: 10.10 38/s4 1436- 018-0 322-z . Epub 2017Jul 17. PMID: 85057 698. Not Available [facility] (Pre-Op Clinic) [address] [place] [address] [place], [address], 04/22/2024 11:18:35 04/01/20 24 04/22/2024 FACTO R 5 LEIDE N MUTAT ION ASSAY reviewed by: MOJGAN Goode Techn ical [place] nent perfo rmed at [facility] [place] Lucretia deras [place] nent perfo rmed by: . Arben terry, Ph.D. , [facility] Dire tor, Myra thaisar Cristina ics [address] [place] [address] Perfo rmed at: [facility] [place] [address] , [place] [address] Lab Direc tor: Corin Ricketts [facility] , Phone : [phone] Not Available [facility] (Pre[facility]Op [facility]) [address] [place] [address] [place], [address], 04/22/2024 11:18:35 09/16/20 24 09/16/2024 CBC W/ AUTO DIFF WBC 3.83 K/uL 4.5-11 .5 low Not Available [facility] (Pre[facility]Op [facility]) [address] [place] [address] [place], [address], 09/16/2024 12:47:11 09/16/20 24 09/16/2024 CBC W/ AUTO DIFF RBC 3.38 M/uL 4.0-5. 4 low Not Available [facility] (Pre[facility]Op [facility]) [address] [place] [address] [place], [address], 09/16/2024 12:47:11 09/16/20 24 09/16/2024 CBC W/ AUTO DIFF HGB 11.1 g/dL 12.0-1 5.0 low Not Available [facility] (Pre[facility]Op Clinic) [address] [place] [address] [place], [address], 09/16/2024 12:47:11 09/16/20 24 09/16/2024 CBC W/ AUTO DIFF HCT 33.5 % 35-49 low Not Available [facility] (Pre[facility]Op [facility]) [address] [place] [address] [place], [address], 09/16/2024 12:47:11 09/16/20 24 09/16/2024 CBC W/ AUTO DIFF MCV 99.1 fL 80.0-1 00.0 Not Available [facility] (Pre[facility]Op [facility]) [address] [place] [address] [place], [address], 09/16/2024 12:47:11 09/16/20 24 09/16/2024 CBC W/ AUTO DIFF MCH 32.8 pg 26.0-3 2.0 high Not Available [facility] (Pre[facility]Op [facility]) [address] [place] [address] [place], [address], 09/16/2024 12:47:11 09/16/20 24 09/16/2024 CBC W/ AUTO DIFF MCHC 33.1 g/dL 32.0-3 6.0 Not Available [facility] (Pre[facility]Op [facility]) [address] [place] [address] [place], [address], 09/16/2024 12:47:11 09/16/20 24 09/16/2024 CBC W/ AUTO DIFF RDW 12.5 % 11.5-1 4.5 Not Available [facility] (Pre-Op Clinic) [address] [place] [address] [place], [address], 09/16/2024 12:47:11 09/16/20 24 09/16/2024 CBC W/ AUTO DIFF platelet count 209 K/uL 142-42 4 Not Available [facility] (Pre-Op Clinic) [address] [place] [address] [place], [address], 09/16/2024 12:47:11 09/16/20 24 09/16/2024 CBC W/ AUTO DIFF MPV 10.5 fL 6.8-10 .2 high Not Available [facility] (Pre-Op Clinic) [address] [place] [address] [place], [address], 09/16/2024 12:47:11 09/16/20 24 09/16/2024 CBC W/ AUTO DIFF neutrophil % 54.8 % 50-70 Not Available [facility] (Pre-Op Clinic) [address] [place] [address] [place], [address], 09/16/2024 12:47:11 09/16/20 24 09/16/2024 CBC W/ AUTO DIFF lymphocyte % 32.1 % 18.0-4 2.0 Not Available [facility] (Pre[facility]Op [facility]) [address] [place] [address] [place], [address], 09/16/2024 12:47:11 09/16/20 24 09/16/2024 CBC W/ AUTO DIFF monocyte % 8.4 % 2.0-11 .0 Not Available [facility] (Pre[facility]Op [facility]) [address] [place] [address] [place], [address], 09/16/2024 12:47:11 09/16/20 24 09/16/2024 CBC W/ AUTO DIFF eosinophil % 3.9 % 1.0-3. 0 high Not Available [facility] ([facility]Op [facility]) [address] [place] [address] [place], [address], 09/16/2024 12:47:11 09/16/20 24 09/16/2024 CBC W/ AUTO DIFF basophil % 0.3 % 0.0-2. 0 Not Available [facility] (Pre[facility]Op [facility]) [address] [place] [address] [place], [address], 09/16/2024 12:47:11 09/16/20 24 09/16/2024 CBC W/ AUTO DIFF immature granulocytes % 0.5 % 0.0-0. 8 Not Available [facility] (Pre[facility]Op Clinic) [address] [place] [address] [place], [address], 09/16/2024 12:47:11 09/16/20 24 09/16/2024 CBC W/ AUTO DIFF nucleated red blood cells % 0.0 % Not Available [facility] (Pre[facility]Op [facility]) [address] [place] [address] [place], [address], 09/16/2024 12:47:11 09/16/20 24 09/16/2024 CBC W/ AUTO DIFF neutrophil # 2.10 K/uL Not Available [facility] ([facility]Op [facility]) [address] [place] [address] [place], [address], 09/16/2024 12:47:11 09/16/20 24 09/16/2024 CBC W/ AUTO DIFF lymphocyte # 1.23 K/uL Not Available [facility] ([facility]Op [facility]) [address] [place] [address] [place], [address], 09/16/2024 12:47:11 09/16/20 24 09/16/2024 CBC W/ AUTO DIFF monocyte # 0.32 K/uL Not Available [facility] ([facility]Op [facility]) [address] [place] [address] [place], [address], 09/16/2024 12:47:11 09/16/20 24 09/16/2024 CBC W/ AUTO DIFF eosinophil # 0.15 K/uL Not Available [facility] ([facility]Op [facility]) [address] [place] [address] [place], [address], 09/16/2024 12:47:11 09/16/20 24 09/16/2024 CBC W/ AUTO DIFF basophil # 0.01 K/uL Not Available [facility] ([facility]Op [facility]) [address] [place] [address] [place], [address], 09/16/2024 12:47:11 09/16/20 24 09/16/2024 CBC W/ AUTO DIFF immature gramulocytes # 0.02 K/uL Not Available [facility] ([facility]Op [facility]) [address] [place] [address] [place], [address], 09/16/2024 12:47:11 09/16/20 24 09/16/2024 CBC W/ AUTO DIFF nucleated red blood cells # 0.00 k/uL Not Available [facility] ([facility]Op [facility]) [address] [place] [address] [place], [address], 09/16/2024 12:47:11 09/16/20 24 09/16/2024 CBC W/ AUTO DIFF manual differential NO Not Available [facility] ([facility]) [address] [facility] [place], [address], 09/16/2024 12:47:11 09/16/20 24 09/16/2024 CBC W/ AUTO DIFF note Unles s other owusu noted testi ng perfo rmed at: [facility] [address] [place] [address] Wayne ayala MD Not Available [facility] (Pre-Op Clinic) [address] [place] [address] [place], [address], 09/16/2024 12:47:11 09/16/20 24 09/16/2024 IRON STUDY W FE/TI BC/UI BC/%S AT iron 62 ug/dL 37-170 Not Available [facility] (Pre-Op Clinic) [address] [place] [address] [place], [address], 09/16/2024 14:37:33 09/16/20 24 09/16/2024 IRON STUDY W FE/TI BC/UI BC/%S AT total iron bind cap. 392 ug/dL 265-49 7 Not Available [facility] (Pre-Op Clinic) [address] [place] [address] [place], [address], 09/16/2024 14:37:33 09/16/20 24 09/16/2024 IRON STUDY W FE/TI BC/UI BC/%S AT unsaturated iron binding cap 330 ug/dL 150-37 5 Not Available [facility] (Pre-Op Clinic) [address] [place] [address] [place], [address], 09/16/2024 14:37:33 09/16/20 24 09/16/2024 IRON STUDY W FE/TI BC/UI BC/%S AT % saturation 16 % 15-55 Not Available [facility] (Pre-Op Clinic) [address] [place] [address] [place], [address], 09/16/2024 14:37:33 09/16/20 24 09/16/2024 IRON STUDY W FE/TI BC/UI BC/%S AT note Unles s other owusu noted testi ng perfo [facility]med at: [facility] [address] [place] [address] Wayne ayala MD Not Available [facility] (Pre-Op Clinic) [address] [place] [address] [place], [address], 09/16/2024 14:37:33 09/16/20 24 09/16/2024 COMP METAB OLIC PANEL sodium 139 mmol/ L 137-14 7 Not Available [facility] (Pre-Op Clinic) [address] [place] [address] [place], [address], 09/16/2024 14:37:35 09/16/20 24 09/16/2024 COMP METAB OLIC PANEL potassium 4.0 mmol/ L 3.5-5. 1 Not Available [facility] (Pre-Op Clinic) [address] [place] [address] [place], [address], 09/16/2024 14:37:35 09/16/20 24 09/16/2024 COMP METAB OLIC PANEL chloride 106 mmol/ L 98-110 Not Available [facility] (Pre-Op Clinic) [address] [place] [address] [place], [address], 09/16/2024 14:37:35 09/16/20 24 09/16/2024 COMP METAB OLIC PANEL carbon dioxide 26 mmol/ L 21-30 Not Available [facility] (Pre-Op Clinic) [address] [place] [address] [place], [address], 09/16/2024 14:37:35 09/16/20 24 09/16/2024 COMP METAB OLIC PANEL anion gap 7 mmol/ L 6-14 Not Available [facility] (Pre-Op Clinic) [address] [place] [address] [place], [address], 09/16/2024 14:37:35 09/16/20 24 09/16/2024 COMP METAB OLIC PANEL glucose 71 mg/dL 70-115 Not Available [facility] (Pre-Op Clinic) [address] [place] [address] [place], [address], 09/16/2024 14:37:35 09/16/20 24 09/16/2024 COMP METAB OLIC PANEL BUN 12 mg/dL 7-17 Not Available [facility] (Pre-Op Clinic) [address] [place] [address] [place], [address], 09/16/2024 14:37:35 09/16/20 24 09/16/2024 COMP METAB OLIC PANEL creatinine 0.8 mg/dL 0.5-1. 5 Not Available [facility] (Pre-Op Clinic) [address] [place] [address] [place], [address], 09/16/2024 14:37:35 09/16/20 24 09/16/2024 COMP METAB OLIC PANEL BUN/creatini ne ratio 15 10-20 Not Available [facility] (Pre-Op Clinic) [address] [place] [address] [place], [address], 09/16/2024 14:37:35 09/16/20 24 09/16/2024 COMP METAB OLIC PANEL glom filtration rate 84 mL/mi n >60- GFR LIMIT ATION : The eGFR equat ion CKD-E PI 2020 is not appli cable for pedia tric patie nts or great er than 90 years of age. The follo wing condi tions may alter the GFR resul t: extre mes in body size, malnu triti on or obesi ty, skele cornelia muscl e disea se, parap legia or quadr ipleg ia, veget drea diet or rapid ly paige ing kiney funct ion. Not Available [facility] (Pre-Op Clinic) [address] [place] [address] [place], [address], 09/16/2024 14:37:35 09/16/20 24 09/16/2024 COMP METAB OLIC PANEL osmolality (calculated) 287 mosmo l/kg 275-30 1 OSMOL ALITY IS A CALCU LATIO N UTILI ZING THE SERUM /PLAS MA SODIU M, GLUCO SE AND UREA NITRO GEN (BUN) LEVEL S. FOR THE MOST ACCUR ATE RESUL T A MEASU RED SERUM OSMOL ALITY IS KARIE CHINO. Not Available [facility] (Pre-Op Clinic) [address] [facility] [place], [address], 09/16/2024 14:37:35 09/16/20 24 09/16/2024 COMP METAB OLIC PANEL total protein 7.1 g/dL 6.2-8. 2 Not Available [facility] (Pre-Op Clinic) [address] [place] [address] [place], [address], 09/16/2024 14:37:35 09/16/20 24 09/16/2024 COMP METAB OLIC PANEL albumin 4.1 g/dL 3.5-5. 0 Not Available [facility] (Pre-Op Clinic) [address] [place] [address] [place], [address], 09/16/2024 14:37:35 09/16/20 24 09/16/2024 COMP METAB OLIC PANEL calcium 8.9 mg/dL 8.5-10 .8 Not Available [facility] (Pre-Op Clinic) [address] [place] [address] [place], [address], 09/16/2024 14:37:35 09/16/20 24 09/16/2024 COMP METAB OLIC PANEL bilirubin total 0.7 mg/dL 0.2-1. 3 Not Available [facility] (Pre-Op Clinic) [address] [place] [address] [place], [address], 09/16/2024 14:37:35 09/16/20 24 09/16/2024 COMP METAB OLIC PANEL AST (SGOT) 54 IU/L 14-36 high Not Available [facility] (Pre-Op Clinic) [address] [place] [address] [place], [address], 09/16/2024 14:37:35 09/16/20 24 09/16/2024 COMP METAB OLIC PANEL ALT (SGPT) 40 IU/L 0-35 high Pleas e note new refer ence inter suleman for ALT. Due to a recen t manuf actur er metho dolog y paige e, the refer ence inter suleman for ALT is lower effec tive February 01, 2021. Not Available [facility] (Pre-Op Clinic) [address] [place] [address] [place], [address], 09/16/2024 14:37:35 09/16/20 24 09/16/2024 COMP METAB OLIC PANEL alk phosphatase 199 IU/L 38-126 high Not Available [facility] (Pre-Op Clinic) [address] [place] [address] [place], [address], 09/16/2024 14:37:35 09/16/20 24 09/16/2024 COMP METAB OLIC PANEL note Unles s other owusu noted testi ng perfo rmed at: [facility] [address] [place] [address] Wayne ayala MD Not Available [facility] (Pre-Op Clinic) [address] [place] [address] [place], [address], 09/16/2024 14:37:35 09/16/20 24 09/16/2024 GERRI TIN ferritin 9 NG/mL 3-105 Not Available [facility] (Pre-Op Clinic) [address] [place] [address] [place], [address], 09/16/2024 14:49:37 09/16/20 24 09/16/2024 GERRI TIN note Unles s other owusu noted testi ng perfo rmed at: [facility] [address] [place] [address] Wayne ayala MD Not Available [facility] (Pre-Op Clinic) [address] [place] [address] [place], [address], 09/16/2024 14:49:37 09/16/20 24 09/16/2024 BETA- 2 GLYCO PROTE IN I AB, IGA note Unles s other owusu noted testi ng perfo rmed at: [facility] [address] [place] [address] Wayne ayala MD Not Available [facility] (Pre-Op Clinic) [address] [place] [address] [place], [address], 09/17/2024 14:17:47 09/16/20 24 09/17/2024 BETA- 2 GLYCO PROTE IN I AB, IGA beta-2 glycoprotein I Ab, IgA <9 gpi_I gA_un its 0-25 . The refer ence inter suleman refle cts a 3SD or 99th perce ntile inter suleman, which is thoug ht to repre sent a tobias tiabird y clini eladia signi stacy t luis goode in accor dance with the Inter natio nal Conse nsus State ment on the class ifica tion crite tom for defin itive antip hosph olipi d syndr ome (APS) . J Throm b Haem 2006; 4:295 -306. Perfo rmed at: - [facility] [address] Lab Direc tor: Morgan yi PhD, Phone : [phone] Not Available [facility] (Pre-Op Clinic) [address] [place] [address] [place], [address], 09/17/2024 14:17:47 09/16/20 24 09/16/2024 BETA- 2 GLYCO PROTE IN I AB G note Unles s other owusu noted testi ng perfo rmed at: [facility] [address] [place] [address] Wayne ayala MD Not Available [facility] (Pre-Op Clinic) [address] [place] [address] [place], [address], 09/17/2024 14:17:49 09/16/20 24 09/17/2024 BETA- 2 GLYCO PROTE IN I AB G beta-2 glycoprotein I Ab, IgG <9 gpi_I gG_un its 0-20 . The refer ence inter suleman refle cts a 3SD or 99th perce ntile inter suleman, which is thoug ht to repre sent a poten tiall y clini eladia signi fican t resul t in accor dance with the Inter natio nal Conse nsus State ment on the class ifica tion crite tom for defin itive antip hosph olipi d syndr ome (APS) . J Throm b Haem 2006; 4:295 -306. Not Available [facility] (Pre-Op Clinic) [address] [place] [address] [place], [address], 09/17/2024 14:17:49 09/16/20 24 09/17/2024 BETA- 2 GLYCO PROTE IN I AB G beta-2 glycoprotein I Ab, IgM <9 gpi_I gM_un its 0-32 . The refer ence inter suleman refle cts a 3SD or 99th perce ntile inter suleman, which is thoug ht to repre sent a poten tiall y clini eladia signi fican t resul t in accor dance with the Inter natio nal Conse nsus State ment on the class ifica tion crite tom for defin itive antip hosph olipi d syndr ome (APS) . J Throm b Haem 2006; 4:295 -306. Perfo rmed at: [place] [address] Lab Dire tor: Morgan yi PhD, Phone : [phone] Not Available [facility] (Pre-Op Clinic) [address] [place] [address] [place], [address], 09/17/2024 14:17:49 09/16/20 24 09/16/2024 ANTIC ARDIO LIPIN AB,IG A,QN note Unles s other owusu noted testi ng perfo rmed at[facility] [address] [place] [address] Wayne aayla MD Not Available [facility] (Pre-Op Clinic) [address] [place] [address] [place], [address], 09/17/2024 16:17:25 09/16/20 24 09/17/2024 ANTIC ARDIO LIPIN AB,IG A,QN anticardioli pin Ab,IgA,qn <9 apl_U /mL 0-11 Negat michael: <12 Indet ermin ate: 12 - 20 Low-M ed Posit michael: >20 - 80 High Posit michael: >80 Perfo rmed at: [facility] [address] [place] [address] Lab Direc tor: Morgan iy PhD, Phone : [phone] Not Available [facility] (Pre-Op Clinic) [address] [place] [address] [place], [address], 09/17/2024 16:17:25 09/16/20 24 09/16/2024 ANTIC ARDIO LIPIN AB,IG G,QN note Unles s other owusu noted testi ng perfo rmed at: [facility] [address] [place] [address] Wayne ayala MD Not Available [facility] (Pre-Op Clinic) [address] [place] [address] [place], [address], 09/17/2024 16:17:26 09/16/20 24 09/17/2024 ANTIC ARDIO LIPIN AB,IG G,QN anticardioli pin Ab,IgG,qn <9 gpl_U /mL 0-14 Negat michael: <15 Indet ermin ate: 15 - 20 Low-M ed Posit michael: >20 - 80 High Posit michael: >80 Perfo rmed at: [place] [id number] [place] [address] Lab Direc tor: Morgan yi PhD, Phone : [phone] Not Available [facility] (Pre-Op Clinic) [address] [place] [address] [place], [address], 09/17/2024 16:17:26 09/16/20 24 09/16/2024 ANTIC ARDIO LIPIN AB,IG M,QN note Unles s other owusu noted testi ng perfo rmed at: [facility] [address] [place] [address] Wayne ayala MD Not Available [facility] (Pre-Op Clinic) [address] [place] [address] [place], [address], 09/17/2024 16:17:27 09/16/20 24 09/17/2024 ANTIC ARDIO LIPIN AB,IG M,QN anticardioli pin Ab,IgM,qn <9 mpl_U /mL 0-12 Negat michael: <13 Indet ermin ate: 13 - 20 Low-M ed Posit michael: >20 - 80 High Posit michael: >80 Perfo rmed at: - [facility]3] [address] [place] [address] 1269 Lab Dire tor: Morgan yi PhD, Phone : [phone] Not Available [facility] (Pre-Op Clinic) [address] [place] [address] [place], [address], 09/17/2024 16:17:27 09/16/20 24 09/16/2024 PROTE IN S ACTIV ITY (FUNC TION) note Unles s other owusu noted testi ng perfo rmed at: [facility] [address] [place] [address] Wayne ayala MD Not Available [facility] (Pre-Op Clinic) [address] [place] [address] [place], [address], 09/18/2024 06:15:35 09/16/20 24 09/18/2024 PROTE IN S ACTIV ITY (FUNC TION) protein S-functional 55 % 63-140 low A defic iency of prote in S (PS), eithe r conge nital or acqui red, incre ases the risk of throm boemb olism . PS activ ity level s may be false ly low in indiv idual s with APCR/ Facto r V Leide n. Consi judy perfo rming free prote in S antig en in those with APCR/ Facto r V Leide n befor e makin g a diagn osis of prote in S defic iency . Acqui red PS defic iency is more commo n than conge nital defic iency . PS value s decre ase with som l pregn neymar, and are also depen dent on age, sex and hormo ne statu s. PS value s tend to be lower in a young er age group and lower in women than in men. Level s may be decre ased in pre-m enopa usal women on oral contr acept michael agent s. Acqui red defic iency can occur as a resul t of vitam in K defic iency or antag onism , sever e hepat ic disor ders, (hepa titis , cirrh osis, etc.) , nephr otic syndr ome, infla mmato ry bowel disea se, certa in chemo thera peuti c agent s, L-asp aragi nse thera py, sepsi s, disse minat ed intra vascu lar coagu latio n (DIC) and acute throm bosis . Level s may be decre ased in patie nts with polyc ythem ia vera, sickl e cell disea se and essen tial throm bocyt hemia . Repea t evalu ation on a new plasm a sampl e to confi rm or refut e this resul t shoul d be consi dered , after rulin g out acqui red cause s, depen brenton on the clini nehemiah scena jayesh. Perfo rmed at: - [facility] [place] [address] [facility] , [place] [address] Lab Direc tor: Jes gaston MD, Phone : [phone] Not Available [facility] (Pre-Op Clinic) [address] [place] [address] [place], [address], 09/18/2024 06:15:35 09/16/20 24 09/16/2024 ANTIT HROMB IN ACTIV ITY note Unles s other owusu noted testi ng perfo rmed at: [facility] [address] [place] [address] Wayne ayala MD Not Available [facility] (Pre-Op Clinic) [address] [place] [address] Dr, [place], [address], 09/18/2024 13:09:47 09/16/20 24 09/18/2024 ANTIT HROMB IN ACTIV ITY antithrombin activity 93 % 75-135 Direc t Xa inhib itor antic oagul ants such as rivar oxaba n, apixa ban and edoxa ban will lead to spuri ously eleva pina antit hromb in activ ity level s possi kailey maski ng a defic iency . Perfo rmed at: [facility] [place] [address] [place] [address] Lab Direc tor: Jes gaston MD, Phone : [phone] Not Available [facility] (Pre-Op Clinic) [address] [place] [address] [place], [address], 09/18/2024 13:09:47 09/16/20 24 09/16/2024 PROTE IN C ACTIV ITY (FUNC TION) note Unles s other owusu noted testi ng perfo rmed at: [facility] [address] [place] [address] Wayne ayala MD Not Available [facility] (Pre-Op Clinic) [address] [place] [address] [place], [address], 09/18/2024 13:09:48 09/16/20 24 09/18/2024 PROTE IN C ACTIV ITY (FUNC TION) protein C-functional 82 % 73-180 Perfo rmed at: [facility] [place] [address] [facility] [place] [address] Lab Direc tor: Jes gaston MD, Phone : [phone] Not Available [facility] (Pre-Op Clinic) [address] [place] [address] [place], [address], 09/18/2024 13:09:48 09/16/20 24 09/16/2024 LUPUS ANTIC OAGUL ANT COMP. note Unles s other owusu noted testi ng perfo rmed at: [facility] [address] [place] [address] Wayne ayala MD Not Available [facility] (Pre-Op Clinic) [address] [place] [address] [place], [address], 09/18/2024 14:15:52 09/16/20 24 09/18/2024 LUPUS ANTIC OAGUL ANT COMP. dilute prothrombin (DPT) 38.4 sec 0.0-47 .6 Not Available [facility] (Pre-Op Clinic) [address] [place] [address] [place], [address], 09/18/2024 14:15:52 09/16/20 24 09/18/2024 LUPUS ANTIC OAGUL ANT COMP. DPT confirm ratio 0.98 ratio 0.00-1 .34 Not Available [facility] (Pre-Op Clinic) [address] [place] [address] [place], [address], 09/18/2024 14:15:52 09/16/20 24 09/18/2024 LUPUS ANTIC OAGUL ANT COMP. thrombin time 17.6 sec 0.0-23 .0 Not Available [facility] (Pre-Op Clinic) [address] [place] [address] [place], [address], 09/18/2024 14:15:52 09/16/20 24 09/18/2024 LUPUS ANTIC OAGUL ANT COMP. PTT-la 35.1 sec 0.0-43 .5 Not Available [facility] (Pre-Op Clinic) [address] [place] [address] [place], [address], 09/18/2024 14:15:52 09/16/20 24 09/18/2024 LUPUS ANTIC OAGUL ANT COMP. drvvt 36.2 sec 0.0-47 .0 Not Available [facility] (Pre-Op Clinic) [address] [place] [address] [place], [address], 09/18/2024 14:15:52 09/16/20 24 09/18/2024 LUPUS ANTIC OAGUL ANT COMP. interpretati on Commen t: Perfo rmed at: [facility] [place] [address] [facility] , [place] [address] Lab Direc tor: Jes gaston MD, Phone : [phone] No lupus antic oagul ant was detec pina. Perfo rmed at: [facility] [place] [address] [facility] [place] [address] Lab Direc tor: Jes gaston MD, Phone : [phone] Not Available [facility] (Pre-Op Clinic) [address] [place] [address] [place], [address], 09/18/2024 14:15:52 09/16/20 24 09/16/2024 FACTO R 8 ACTIV ITY note Unles s other owusu noted testi ng perfo rmed at: [facility] [address] [place] [address] Wayne ayala MD Not Available [facility] (Pre-Op Clinic) [address] [place] [address] [place], [address], 09/18/2024 14:15:53 09/16/20 24 09/18/2024 FACTO R 8 ACTIV ITY factor VIII activity 165 % 56-140 high FVIII activ ity can incre ase in a varie ty of clini nehemaih situa tions inclu ding som l pregn neymar, in sampl es drawn from patie nts (part icula rly child kevin) who are visib ly stres sed at the time of phleb otomy , as acute phase react ants, or in respo nse to certa in drug thera pies such as DDAVP . Persi stent ly eleva pina FVIII activ ity is a risk facto r for venou s throm bosis as well as recur rence of venou s throm bosis . Risk is grade d and incre ases with the degre e of eleva tion. Altho ugh eleva pina FVIII activ ity has been ident ified to clust er withi n famil ies, a cristina ic basis for the eleva tion has not yet been eluci dated (Kraig J Haema soham. 2012; 157:6 53-66 3). Perfo rmed at: - [facility] [place] [address] , [place] [address] Lab Direc tor: Jes gaston MD, Phone : [phone] Not Available [facility] (Pre-Op Clinic) [address] [place] [address] [place], [address], 09/18/2024 14:15:53 09/16/20 24 09/16/2024 FACTO R II, DNA JOHN SIS note Unles s other owusu noted testi ng perfo rmed at: [facility] [address] [place] [address] Wayne ayala MD Not Available [facility] (Pre-Op Clinic) [address] [place] [address] [place], [address], 09/21/2024 17:12:30 09/16/20 24 09/21/2024 FACTO R II, DNA JOHN SIS factor II, DNA analysis Commen t Resul t: c.*97 G>A - Not Detec pina . This resul t is not assoc iated with an incre ased risk for [place] ous throm boemb olism . See Addit ional Clini nehemiah Infor matio n and Comme nts. . Addit ional Clini nehemiah Infor matio n: Venou s throm boemb olism is a multi facto rial disea se influ ence d by cristina ic, envir onmen cornelia, and circu mstan tial risk facto rs. The c.*97 G>A varia nt in the F2 gene is a cristina ic risk facto r for venou s throm boemb olism . Heter ozygo us abdelrahman ers have a 2- to 4-fol d i ncrea sed risk for venou s throm boemb olism . Homoz ygote s for the c.*97 G> A varia nt are rare. The annua l risk of VTE in homoz ygote s has been rep orted to be 1.1%/ year. Indiv idual s who carry both a c.*97 G>A varia nt in the F2 gene and a c.160 1G>A (p. Arg53 4Gln) varia nt in the F5 gen e (comm only refer red to as Facto r V Leide n) have an appro ximat merritt 20- fold incre ased risk for venou s throm boemb olism . Risks are li kedar to be even highe r in more compl ex genot ype combi natio ns invol vi ng the F2 c.*97 G>A varia nt and Facto r V Leide n (PMID : [id number]). Ad ditio nal risk facto rs inclu de but are not limit ed to: defic iency of p rotei n C, prote in S, or antit hromb in III, age, male sex, perso nal or f amily histo ry of deep vein throm boemb olism , smoki ng, surge ry, prol onged immob iliza tion, malig nant neopl asm, tamox ifen treat ment, ral oxife ne treat ment, oral contr acept michael use, hormo ne repla cemen t thera py, and pregn neymar. Manag ement of throm botic risk and throm botic even ts shoul d follo w estab lishe d guide lines and fit the clini nehemiah circu msta nce. This resul t canno t predi ct the occur rence or recur rence of a thro mboti c event . . Comme nts: Cristina ic couns nettie is recom jamaal d to discu ss the poten tial c linic al impli catio ns of posit michael resul ts, as well as recom menda tions for testi ng famil y membe rs. Cristina ic Coord inato rs are avail able for healt h care provi ders to discu ss resul ts at [phone] . Test Detai ls: Varia nt john zed: c.*97 G>A, previ ously refer red to as G2021 0 A . Metho ds/Li mitat ions: DNA john sis of the F2 gene ([id number]) was perfo rmed by P CR ampli ficat ion follo wed by restr ictio n enzym e john sis. The d iagno stic sensi tivit y is >99%. Resul ts must be combi anthony with clini nehemiah infor matio n for the most accur ate inter preta tion. Molec ular- based testi ng is highl y accur ate, but as in any labor atory test, d iagno stic error s may occur . False posit michael or false negat michael resul ts m ay occur for reaso ns that inclu de cristina ic varia nts, blood trans fusio n s, bone marro w trans plant ation , somat ic or tissu e-spe cific mosai cism , misla beled sampl es, or johanna eous repre senta tion of famil y relat ionsh ips. . This test was devel oped and its perfo rmanc e debbie cteri stics deter mined by [employer] [facility]. It has not been clear ed or appro swati by the Food and Drug Admin istra tion. . Refer ences : Cristian Ayala, Lissy HERNANDEZ, Yuliana Madsen, Kathie SANTIAGO, Wilfrido in JH; AC Pro fessi onal Pract ice and Guide lines Commi ttee. Adden dum: Carrie lucas e of Medic al Cristina ics conse nsus state ment on facto r V Leide n muta tion testi ng. Cristina Med. 2020Dec 15. doi: 10.10 38/s4 1436- 021-0 110 8-x. PMID: 57775 767. . Stephania ich JL. Proth rombi n Throm bophi susan. 2005May 06 i??Up dated 2020 4i??. In: Dov MP, Suman salinas HH, Anastasiia RA, et al., gary rs. GeneR eview s(R) i??In terne ti??. Dhruv navarro ([place]): Unive rsity of Dhruv Li; 1992- 2020. Avail able from: https ://candice deal.ncb i.nlm .nih. gov/b ooks/ [email or web address] 48/ . Sarath Ayala, Lissy HERNANDEZ, Sincere X, Misha B, Spect or EB, Mary P, Lino ards CS; ACMG Labor atory Quali ty Assur ance Commi ttee. Venou s throm telma mboli sm labor atory testi ng (fact or V Leide n and facto r II c.*97 G>A), 2018 greg e: a techn ical stand farida of the Carrie yeboah Colle ge of Medic al Cristina ics and Genom ics ([facility] [address] ). Cristina Med. 2018 Sep;2 0(12) :148 9-149 8. doi: 10.10 /s4 1436- 018-0 322-z . Epub 2017Jul 17. PMID: [id number]. Not Available [facility] (Pre-Op Clinic) [address] [place] [address] [place], [address], 09/21/2024 17:12:30 09/16/20 24 09/21/2024 FACTO R II, DNA JOHN SIS reviewed by: Mojgan goode Techn ical [place] nent perfo rmed at [facility] Profe jacintaon al [place] nent perfo rmed by: . Labor atory Corpo ratio n of Ameri ca Holdi ngs Gerry delaney, Ph.D. , FAC Direc tor, Molec ular Cristina ics [address] [place] [address] Perfo rmed at: - [facility]P [address] [facility] , [place] [address] Lab Direc tor: Corin Ricketts [facility] , Phone : [phone] Not Available [facility] (Pre-Op Clinic) [address] [place] [address] [place], [address], 09/21/2024 17:12:30 02/29/20 25 02/28/2025 CBC W/ AUTO DIFF WBC 5.97 K/uL 4.5-11 .5 Not Available [facility] (Pre-Op Clinic) [address] [place] [address] [place], [address], 02/28/2025 10:47:54 02/29/20 25 02/28/2025 CBC W/ AUTO DIFF RBC 3.84 M/uL 4.0-5. 4 low Not Available [facility] (Pre-Op Clinic) [address] [place] [address] [place], [address], 02/28/2025 10:47:54 02/29/20 25 02/28/2025 CBC W/ AUTO DIFF HGB 13.3 g/dL 12.0-1 5.0 Not Available [facility] (Pre-Op Clinic) [address] [place] [address] [place], [address], 02/28/2025 10:47:54 02/29/20 25 02/28/2025 CBC W/ AUTO DIFF HCT 39.5 % 35-49 Not Available [facility] (Pre-Op Clinic) [address] [place] [address] [place], [address], 02/28/2025 10:47:54 02/29/20 25 02/28/2025 CBC W/ AUTO DIFF MCV 102.9 fL 80.0-1 00.0 high Not Available [facility] (Pre-Op Clinic) [address] [place] [address] [place], [address], 02/28/2025 10:47:54 02/29/20 25 02/28/2025 CBC W/ AUTO DIFF MCH 34.6 pg 26.0-3 2.0 high Not Available [facility] (Pre-Op Clinic) [address] [place] [address] [place], [address], 02/28/2025 10:47:54 02/29/20 25 02/28/2025 CBC W/ AUTO DIFF MCHC 33.7 g/dL 32.0-3 6.0 Not Available [facility] (Pre-Op Clinic) [address] [place] [address] [place], [address], 02/28/2025 10:47:54 02/29/20 25 02/28/2025 CBC W/ AUTO DIFF RDW 14.5 % 11.5-1 4.5 Not Available [facility] (Pre-Op Clinic) [address] [place] [address] [place], [address], 02/28/2025 10:47:54 02/29/20 25 02/28/2025 CBC W/ AUTO DIFF platelet count 241 K/uL 142-42 4 Not Available [facility] (Pre-Op Clinic) [address] [place] [address] [place], [address], 02/28/2025 10:47:54 02/29/20 25 02/28/2025 CBC W/ AUTO DIFF MPV 10.1 fL 6.8-10 .2 Not Available [facility] (Pre-Op Clinic) [address] [place] [address] [place], [address], 02/28/2025 10:47:54 02/29/20 25 02/28/2025 CBC W/ AUTO DIFF neutrophil % 66.1 % 50-70 Not Available [facility] (Pre-Op Clinic) [address] [place] [address] [place], [address], 02/28/2025 10:47:54 02/29/20 25 02/28/2025 CBC W/ AUTO DIFF lymphocyte % 23.6 % 18.0-4 2.0 Not Available [facility] (Pre-Op Clinic) [address] [place] [address] [place], [address], 02/28/2025 10:47:54 02/29/20 25 02/28/2025 CBC W/ AUTO DIFF monocyte % 6.0 % 2.0-11 .0 Not Available [facility] (Pre-Op Clinic) [address] [place] [address] [place], [address], 02/28/2025 10:47:54 02/29/20 25 02/28/2025 CBC W/ AUTO DIFF eosinophil % 4.0 % 1.0-3. 0 high Not Available [facility] (Pre-Op Clinic) [address] [place] [address] [place], [address], 02/28/2025 10:47:54 02/29/20 25 02/28/2025 CBC W/ AUTO DIFF basophil % 0.0 % 0.0-2. 0 Not Available [facility] (Pre-Op Clinic) [address] [place] [address] [place], [address], 02/28/2025 10:47:54 02/29/20 25 02/28/2025 CBC W/ AUTO DIFF immature granulocytes % 0.3 % 0.0-0. 8 Not Available [facility] (Pre-Op Clinic) [address] [place] [address] [place], [address], 02/28/2025 10:47:54 02/29/20 25 02/28/2025 CBC W/ AUTO DIFF nucleated red blood cells % 0.0 % Not Available [facility] (Pre-Op Clinic) [address] [place] [address] [place], [address], 02/28/2025 10:47:54 02/29/20 25 02/28/2025 CBC W/ AUTO DIFF neutrophil # 3.94 K/uL Not Available [facility] (Pre-Op Clinic) [address] [place] [address] [place], [address], 02/28/2025 10:47:54 02/29/20 25 02/28/2025 CBC W/ AUTO DIFF lymphocyte # 1.41 K/uL Not Available [facility] (Pre-Op Clinic) [address] [place] [address] [place], [address], 02/28/2025 10:47:54 02/29/20 25 02/28/2025 CBC W/ AUTO DIFF monocyte # 0.36 K/uL Not Available [facility] (Pre-Op Clinic) [address] [place] [address] [place], [address], 02/28/2025 10:47:54 02/29/20 25 02/28/2025 CBC W/ AUTO DIFF eosinophil # 0.24 K/uL Not Available [facility] (Pre-Op Clinic) [address] [place] [address] [place], [address], 02/28/2025 10:47:54 02/29/20 25 02/28/2025 CBC W/ AUTO DIFF basophil # 0.00 K/uL Not Available [facility] (Pre-Op Clinic) [address] [place] [address] [place], [address], 02/28/2025 10:47:54 02/29/20 25 02/28/2025 CBC W/ AUTO DIFF immature gramulocytes # 0.02 K/uL Not Available [facility] (Pre-Op Clinic) [address] [place] [address] [place], [address], 02/28/2025 10:47:54 02/29/20 25 02/28/2025 CBC W/ AUTO DIFF nucleated red blood cells # 0.00 k/uL Not Available [facility] (Pre-Op Clinic) [address] [place] [address] [place], [address], 02/28/2025 10:47:54 02/29/20 25 02/28/2025 CBC W/ AUTO DIFF manual differential NO Not Available [facility] (Pre-Op Clinic) [address] [place] [address] [place], [address], 02/28/2025 10:47:54 02/29/20 25 02/28/2025 CBC W/ AUTO DIFF note Unles s other owusu noted testi ng perfo rmed at: [facility] [address] [place] [address] Wayne ayala MD Not Available [facility] (Pre-Op Clinic) [address] [place] [address] [place], [address], 02/28/2025 10:47:54 02/29/20 25 02/28/2025 C-YANE CTIVE PROTE IN (CRP) C-reactive protein <5.0 mg/L -10 Not Available [facility] (Pre-Op Clinic) [address] [place] [address] [place], [address], 02/28/2025 13:49:09 02/29/20 25 02/28/2025 C-YANE CTIVE PROTE IN (CRP) note Unles s other owusu noted testi ng perfo rmed at: [facility] [address] [place] [address] Wayne ayala MD Not Available [facility] (Pre-Op Clinic) [address] [place] [address] [place], [address], 02/28/2025 13:49:09 02/29/20 25 02/28/2025 IRON STUDY W FE/TI BC/UI BC/%S AT iron 204 ug/dL 37-170 high Not Available [facility] (Pre-Op Clinic) [address] [place] [address] [place], [address], 02/28/2025 13:51:47 02/29/20 25 02/28/2025 IRON STUDY W FE/TI BC/UI BC/%S AT total iron bind cap. 315 ug/dL 265-49 7 Not Available [facility] (Pre-Op Clinic) [address] [place] [address] [place], [address], 02/28/2025 13:51:47 02/29/20 25 02/28/2025 IRON STUDY W FE/TI BC/UI BC/%S AT unsaturated iron binding cap 111 ug/dL 150-37 5 low Not Available [facility] (Pre-Op Clinic) [address] [place] [address] [place], [address], 02/28/2025 13:51:47 02/29/20 25 02/28/2025 IRON STUDY W FE/TI BC/UI BC/%S AT % saturation 65 % 15-55 high Not Available [facility] (Pre-Op Clinic) [address] [place] [address] [place], [address], 02/28/2025 13:51:47 02/29/20 25 02/28/2025 IRON STUDY W FE/TI BC/UI BC/%S AT note Unles s other owusu noted testi ng perfo rmed at: [facility] [address] [place] [address] Wayne ayala MD Not Available [facility] (Pre-Op Clinic) [address] [place] [address] [place], [address], 02/28/2025 13:51:47 02/29/20 25 02/28/2025 GERRI TIN ferritin 17 NG/mL 3-105 Not Available [facility] (Pre-Op Clinic) [address] [place] [address] [place], [address], 02/28/2025 14:19:57 02/29/20 25 02/28/2025 GERRI TIN note Unles s other owusu noted testi ng perfo rmed at: [facility] [address] [place] [address] Wayne ayala MD Not Available [facility] (Pre-Op Clinic) [address] [place] [address] [place], [address], 02/28/2025 14:19:57 02/29/20 25 02/28/2025 FACTO R 8 ACTIV ITY note Unles s other owusu noted testi ng perfo rmed at: [facility] [address] [place] [address] Wayne ayala MD Not Available [facility] (Pre-Op Clinic) [address] [place] [address] [place], [address], 03/02/2025 02:13:57 02/29/2003/02/2025 FACTO R 8 ACTIV ITY factor VIII activity 184 % 56-140 high FVIII activ ity can incre ase in a varie ty of clini nehemiah situa tions inclu ding som l pregn neymar, in sampl es drawn from patie nts (part icula rly child kevin) who are visib ly stres sed at the time of phleb otomy , as acute phase react ants, or in respo nse to certa in drug thera pies such as DDAVP . Persi stent ly eleva pina FVIII activ ity is a risk facto r for venou s throm bosis as well as recur rence of venou s throm bosis . Risk is grade d and incre ases with the degre e of eleva tion. Altho ugh eleva pina FVIII activ ity has been ident ified to clust er withi n famil ies, a cristina ic basis for the eleva tion has not yet been eluci dated (Br J Haema soham. 2012; 157:6 53-66 3). Perfo rmed at: - [facility]z [address] [facility] [place] [address] Lab Direc tor: Jes gaston MD, Phone : [phone] Not Available [facility] (Pre-Op Clinic) [address] [place] [address] [place], [address], 03/02/2025 02:13:57 02/29/20 25 02/28/2025 PROTE IN S ACTIV ITY (FUNC TION) note Unles s other owusu noted testi ng [facility]fo [facility]med [facility] [address] [place] [address] Wayne ayala MD Not Available [facility] (Pre-Op Clinic) [address] [place] [address] [place], [address], 03/02/2025 16:16:07 02/29/20 25 03/02/2025 PROTE IN S ACTIV ITY (FUNC TION) protein S-functional 69 % 63-140 Prote in S activ ity may be false ly incre ased (mask ing an abnor mal, low resul t) in patie nts recei ving direc t Xa inhib itor (e.g. , rivar oxaba n, apixa ban, edoxa ban) or a direc t throm bin inhib itor (e.g. , dabig atran ) antic oagul ant treat ment due to assay inter feren ce by these drugs . Perfo rmed at: - [facility] lentz [address] [facility] [place] [address] Lab Direc tor: Jes gaston MD, Phone : [phone] Not Available [facility] (Pre-Op Clinic) [address] [place] [address] [place], [address], 03/02/2025 16:16:07 Result Notes None recorded. 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 Active DOMINICK SALEH RUBÉN RD, LD [address] , [place], [address] , [place] 3 13:51:25 Difficulty speaking Active DOMINICK MONTANA RD, LD [address], [place], [address] , [place] 3 13:51:26 Body mass index 40+ - severely obese 441205208 Active DOMINICK SALEH RUBÉN RD, LD [address] [facility], [place], [address] , [place] 3 13:51:25 Severe major depression , single episode, without psychotic features 36065899 Active DOMINICK MONTANA RD, LD [address] [facility], [place], [address] , [place] 3 13:51:26 Acquired hypothyroi dism 724947185 Active DOMINICK MONTANA RD, LD [address] [facility], [place], [address] , [place] [facility] [facility] & [place] 3 13:51:25 Dyslipidem ia 064018917 Active DOMINICK SALEH RUBÉN RD, LD [address] , [place], [address] , [place] 3 13:51:25 Severe recurrent major depression without psychotic features 37737191 Active DOMINICK SALEH RUBÉN RD, LD [address] , [place], [address] , [place] [facility] & [place] 3 13:51:25 History of musculoske letal disease 534505341 Active DOMINICK MONTANA RD, LD [address] [facility], [place], [address] , [place] [facility] & [place] 3 13:51:25 Patient encounter status 536239587 Active DOMINICK MONTANA RD, LD [address] [facility], [place], [address] , [place] [facility] & [place] 3 13:51:25 Family tension 255992311 Active DOMINICK MONTANA RD, LD [address] [facility], [place], [place], [address] [place] [address] , [place] [facility] & [place] 3 13:51:25 Otalgia 35520526 Active DOMINICK MONTANA RD, LD [address] [facility], [place], [address] , [place] [facility] & [place] 3 13:51:25 Disorder of gastrointe stinal tract 488264727 Active DOMINICK MONTANA RD, LD [address] [facility], [place], [address] , [place] [facility] & [place] 3 13:51:25 Sialoadeni tis 27198411 Active DOMINICK MONTANA RD, LD [address] [facility], [place], [address] , [place] [facility] & [place] 3 13:51:26 Irritable bowel syndrome 59522043 Active DOMINICK MONTANA RD, LD [address] [facility], [place], [address] , [place] [facility] & [place] 3 13:51:25 Esophageal dysphagia 43546242 Active DOMINICK MONTANA RD, LD [address] [facility], [place], [address] , [place] [facility] & [place] 3 13:51:25 Dizziness 410047287 Active DOMINICK SALEH RUBÉN ALEXANDER, LD [address] [facility], [place], [address] , [place] [facility] & [place] 3 13:51:25 Chronic pain 32166856 Active DOMINICK SALEH RUBÉN ALEXANDER, LD [address] [facility], [place], [address] , [place] [facility] & [place] 3 13:51:26 Chronic low back pain 572130216 Active DOMINICK DELFINO MONTANA RD, LD [address] [facility], [place], [address] , [place] [facility] & [place] 3 13:51:25 Abnormal auditory perception 50736305 Active DOMINICK DELFINO MONTANA RD, LD [address] [facility], [place], [address] , [place] [facility] & [place] 3 13:51:26 Lesion of salivary gland 683570146 Active DOMINICK DELFINO MONTANA RD, LD [address] [facility], [place], [address] , [place] [facility] & [place] 3 13:51:25 Newly diagnosed diabetes 285741046 Active DOMINICK TOMPKINSADAN MONTANA RD, LD [address] [facility], [place], [address] , [place] [facility] & [place] 3 13:51:25 Disturbanc e of salivary secretion 83353010 Active DOMINICK MONTANA RD, LD [address] [facility], [place], [address] , [place] [facility] & [place] 3 13:51:26 Mixed hyperlipid emia 775036725 Active DOMINICK MONTANA RD, LD [address] [facility], [place], [address] , [place] [facility] & [place] 3 13:51:25 Irregular heart beat 722007001 Active DOMINICK MONTANA RD, LD [address] [facility], [place], [address] , [place] [facility] & [place] 3 13:51:25 Metabolic dysfunctio n-associat ed steatohepa titis 865603668 Active DOMINICK MONTANA RD, LD [address] [facility], [place], [address] , [place] [facility] & [place] 3 13:51:26 Hypertensi ve disorder 58550605 Active DOMINICK MONTANA RD, LD [address] [facility], [place], [address] , [place] [facility] & [place] 3 13:51:25 Panic disorder 662041307 Active DOMINICK MONTANA RD, LD [address] [facility], [place], [address] , [place] [facility] & [place] 3 13:51:25 Essential hypertensi on 97328177 Active DOMINICK MONTANA RD, LD [address] [facility], [place], [address] , [place] [facility] & [place] 3 13:51:26 Dry cornea 602530787 Active DOMINICK MONTANA RD, LD [address] [facility], [place], [address] , [place] [facility] & [place] 3 13:51:25 Gastro-eso phageal reflux disease with esophagiti s 422455938 Active DOMINICK MONTANA RD, LD [address] [facility], [place], [address] , [place] [facility] & [place] 3 13:51:25 Steatotic liver disease 593360663 Active DOMINICK MONTANA RD, LD [address] [facility], [place], [address] , [place] [facility] & [place] 3 13:51:25 Chronic purulent otitis media 88192592 Active DOMINICK MONTANA RD, LD [address] [facility], [place], [address] , [place] [facility] & [place] 3 13:51:25 Morbid obesity 567096093 Active Not Available [facility] 3 13:58:46 Symptom of head and neck region 994211113 Active DOMINICK MONTANA RD, LD [address] [facility], [place], [address] , [place] [facility] & [place] 3 13:51:25 Neck pain 24846349 Active DOMINICK MONTANA RD, LD [address] [facility], [place], [place], [address] [place] [address] , [place] [facility] & [place] 3 13:51:26 Tobacco user 427253473 Active DOMINICK MONTANA RD, LD [address] [facility], [place], [place], [address] [place] [address] , [facility] - [facility] & [place] 3 13:51:25 Adjustment disorder with mixed emotional features 08234211 Active DOMINICK MONTANA RD, LD [address] [facility], [place], [address] [place] [address] , [place] [facility] & [place] 3 13:51:26 Bilateral tinnitus 7816632933858 Active DOMINICK MONTANA RD, LD [address] [facility], [place], [address] [place] [address] , [place] [facility] & [place] 3 13:51:26 Counseling procedure with explicit context 239517063 Active DOMINICK MONTANA RD, LD [address] [facility], [place], [address] [place] [address] , [place] [facility] & [place] 3 13:51:26 Gastroesop hageal reflux disease 808335078 Active DOMINICK MONTANA RD, LD [address] [facility], [place], [address] [place] [address] , [place] [facility] & [place] 3 13:51:25 Sj gren's syndrome 05670527 Active DOMINICK MOTNANA RD, LD [address] [facility], [place], [address] [place] [address] , [place] [facility] [place] 3 13:51:26 Type 2 diabetes mellitus without complicati on 389760250 Active DOMINICK MONTANA RD, LD [address] [facility], [place], [address] [place] [address] , [facility] - NT [facility] & [place] 3 13:51:25 Gastroesop hageal reflux disease without esophagiti s 019979864 Active DOMINICK MONTANA RD, LD [address] [facility], [place], [address] [place] [address] , [facility] - [facility] & [place] 3 13:51:25 Previous abnormalit y of glucose tolerance 9169057 Active DOMINICK MONTANA RD, LD [address] [facility], [place], [address] [place] [address] , [facility] - NT [facility] & [place] 3 13:51:25 Anxiety 85077284 Active DOMINICK MONTANA RD, LD [address] [facility], [place] [address] , [facility] - [facility] & [place] 3 13:51:26 Sensorineu ral hearing loss of bilateral ears 187414452 Active DOMINICK MONTANA RD, LD [address] [facility], [place], [address] [place] [address] , [facility] - NT [facility] & [place] 3 13:51:25 Swallowing painful 80270756 Active DOMINICK MONTANA [address], LD [address] [facility], [place], [address] [place] [address] , [facility] - [facility] & [place] 3 13:51:25 Non-infect michael diarrhea 28435857 Active DOMINICK MONTANA RD, LD [address] [facility], [place], [address] [place] [address] , [facility] - [facility] & [place] 3 13:51:26 Acid reflux 695874760 Active DOMINICK MONTANA RD, LD [address] [facility], [place], [address] [place] [address] , [facility] - [facility] & [place] 3 13:51:26 Fibromyalg ia 652994207 Active DOMINICK MONTANA RD, LD [address], [place], [address] , [place] [facility] - [place] & [place] 3 13:51:25 Liver function tests outside reference range 542189829 Active DOMINICK MONTANA RD, LD [address], [place], [address] , [place] 3 13:51:25 Mild intermitte nt asthma 292601108 Active DOMINICK MONTANA RD, LD [address], [place], [address] , [place] 3 13:51:26 Hypothyroi dism 99844777 Active DOMINICK MONTANA RD, LD [address], [place], [address] , [place] 3 13:51:25 Constipati on 10759176 Active DOMINICK MONTANA RD, LD [address], [place], [address] , [place] 3 13:51:25 Intentiona l weight loss 090540387 Active [address], LD [address] [facility], [place], [address] , [place] 3 13:51:25 Nausea 341197847 Active [address], LD [address] [facility], [place], [address] , [place] 3 13:51:25 Vomiting 801578671 Active [address], LD [address] [facility], [place], [address] , [place] 3 13:51:25 Hiatal hernia 64385331 Active DOMINICK MONTANA [address], LD [address] [facility], [place], [address] , [place] & [place] 3 13:51:26 Obesity 428885730 Active 2022 Lamont Alaniz, DNP, [employer], [employer]C [address], [place], [address] , [place] [facility] [place] 3 11:24:38 Iron deficiency anemia 30242112 Active 2022 Cherie Pathak NP [address], [address], [place], [address] , [place] 3 10:46:23 Iron profile outside reference range [id number] 1 Active 2022 Cherie Pathak NP [address], [address], [place], [address] , [place] 3 10:46:37 Anemia 018325171 Active 2022 Cherie Pathak NP [address], [address], [place], [address] , [place] 3 10:47:41 Overweight 412723024 Active 2022 Lamont Alaniz, DNP, MOUNTAIN SERVICES MANAGER, BUFFING WHEEL PRESSER-C [address], [place], [address] , [place] 3 13:00:31 Hemochroma tosis 259509141 Active 2022 Cherie Pathak NP [address], [address], [place], [address] , [place] 3 23:52:20 Cirrhosis of liver 47647994 Active 2022 Cherie Pathak NP [address], [address], [place], [address] , [place] 3 23:52:30 Alcoholic cirrhosis 009723722 Active 2023 Cherie Pathak NP [address], [address], [place], [address] , [place] [facility] [place] 4 08:14:49 Ascites 626816120 Active 2023 Cherie Pathak NP [address], [address], [place], [address] , [place] [facility] & [place] 4 08:14:49 Hereditary hemochroma tosis 81560512 Active 2023 Cherie Pathak NP [address], [address], [place], [address] , [place] [facility] & [place] 4 08:14:49 Problem Notes None recorded. Procedures Surgical History Date Name Laterality Status Provider Name and Address Organization Details Recorded Time 02/28 Venipuncture completed Bridget Bea [place] [facility] & [place] 5 08:30:47 09/16 Venipuncture completed Trudy Pacheco [place] - [place] 4 08:32:34 04/01 Venipuncture completed Bridget Bea [place] [facility] [place] 4 10:02:47 05/22 Date of Last Colonoscopy completed DOMINICK MONTA[address], LD [address] , [place], [address] , [place] [facility] & [place] 2 15:36:51 12/25 Colonoscopy completed mary lou smith [place] [facility] [facility] & [place] 2 16:12:26 06/29 esophagogastroduodenoscopy completed preethi smith [place] - [facility] & [place] 2 16:11:43 10/[address], LD [address], [place], [address] , [place] - [facility] - [facility] & [place] 2 15:36:51 03/18 Date of Last Pap Smear completed DOMINICK MONTANA RD, LD [address], [place], [address] , [facility] & [place] 2 15:36:51 08/13 Cholecystectomy completed mary lou LLANOS [facility] & [place] 2 16:11:29 02/16 Most Recent Bone Density completed DOMINICK MONTANA RD, LD [address], [place], [address] , [facility] & [place] 2 15:36:51 10/13 oophorectomy completed CHRIS Hammer [address], [place], [address] , [facility] & [place] 2 10:45:32 10/13 Tubal Ligation completed mary lou sarah LLANOS [facility] & [place] 2 16:10:57 procedure on duodenum completed Solo in [facility] & [place] 3 08:35:43 Imaging Results None recorded. Procedure Notes None recorded. Medical Equipment None Reported. Allergies Allergen ID Allergen Name Allergen Category Reaction Reaction Severity Criticality Documentation Date Start Date Code Code System Note Provider Name and Address Organization Details Recorded Time 97773 latex environme nt,medica tion Not available Not available Not available 07/04/2022 44788 91 RxNorm Delfina Caroline ROMI stroud - NT [facility] & [place] 2 08:48:02 28402 adhesive tape environme nt,medica tion Not available Not available Not available 07/22/2022 97104 UNK Susanna Godinez luanne, [facility] & [place] 2 10:07:39 Medications Name Sig Start Date [...] completed Not Available Not Available Not Available Jennifer Johnson 28 gauge 11/21 completed Not Available Not [...] injection solution 25 mg by injection route. 01/10/ 2023 01/11 /2023 completed Not Available Not Available Not Available [...] Arterial blood by Pulse oximetry Heart rate Respiratory rate Systolic And Diastolic Systolic And Diastolic Provider Name and Address Organization Details Last Updated DateTime 4 157.48 cm 24.6 kg/m2 79052.8 1 g 96.9 [degF] 98 % 98 % 60 /min 16 /min 112/46 mm[Hg] 91/46 mm[Hg] Nydia Christine [place] - [place] - [place] & [place] 4 10:09:02 Date Recorded Body height Body mass index (BMI) Body weight Body temperature Oxygen saturation Oxygen saturation in Arterial blood by Pulse oximetry Heart rate Systolic And Diastolic Provider Name and Address Organization Details Last Updated DateTime 5 157.48 cm 30 kg/m2 86500.1 5 g 97.1 [degF] 98 % 98 % 69 /min 119/70 mm[Hg] [facility] & [place] 5 08:23:55 Date Recorded Body height Body mass index (BMI) Body weight Body temperature Heart rate Oxygen saturation Oxygen saturation in Arterial blood by Pulse oximetry Systolic And Diastolic Provider Name and Address Organization Details Last Updated DateTime 4 157.48 cm 25.8 kg/m2 95105.5 2 g 97.1 [degF] 60 /min 99 % 99 % 109/53 mm[Hg] Bridgetdejuan LLANOS [facility] & [place] 4 09:54:53 Date Recorded Body height Body mass index (BMI) Body weight Body temperature Oxygen saturation Oxygen saturation in Arterial blood by Pulse oximetry Heart rate Provider Name and Address Organization Details Last Updated DateTime 4 157.48 cm 27.8 kg/m2 30185.3 2 g 98.1 [degF] 98 % 98 % 69 /min Delfina Velazquez [facility] & [place] 4 08:12:42 Date Recorded Body height Body mass index (BMI) Body weight Body temperature Oxygen saturation Oxygen saturation in Arterial blood by Pulse oximetry Heart rate Systolic And Diastolic Provider Name and Address Organization Details Last Updated DateTime 4 157.48 cm 29.3 kg/m2 00015.2 2 g 97.5 [degF] 98 % 98 % 54 /min 95/46 mm[Hg] Trudy Jonesvin [facility] & [place] 4 08:30:14 Social History Question Answer Notes LastModified by Organizat ion Details LastModified Time Tobacco Smoking Status Never Smoker Not Available [employer] 07/10/2022 05:51:27 Do You Have An Advance Directive? No [email or web address] Information not available 07/25/2022 Are You Blind Or Do You Have Difficulty Seeing? No Information not available 07/25/2022 What Is Your Level Of Caffeine Consumption? Moderate Information not available 12/17/2023 What Was The Date Of Your Most Recent Tobacco Screening? 07/22/2022 Information not available 07/25/2022 Are You Passively Exposed To Smoke? No [email or web address] Information not available 07/25/2022 Has Tobacco Cessation Counseling Been Provided? No Information not available 12/17/2023 Sex: Female Functional Status Question Answer Note LastModified by Organizat ion Details LastModified Time Do you use any illicit or recreational drugs? No [email or web address] Information not available 07/22/2022 Do you or have you ever used any other forms of tobacco or nicotine? No Information not available 12/17/2023 What is your level of alcohol consumption? None [email or web address] Information not available 07/22/2022 What is your exercise level? None [email or web address] Information not available 07/25/2022 Mental Status None recorded. Family History Relationship Description Onset Age of this Age Resolved Age Notes LastModified by Organization Details LastModified Time Sister Obesity [email or web address] Not availa ble 07/22/2022 10:07:59 Sister Diabetes mellitus Not available 02/28 08:20:09 Sister Malignant tumor of breast [email or web address] Not available 02/28 08:20:09 Sister Liver problem pt. added direct ly (07/27) [email or web address] Not available 07/27/2023 13:40:46 Brother Diabetes mellitus [email or web address] Not available 02/28 08:20:09 Brother Liver problem pt. added direct ly (07/27) [email or web address] Not available 07/27/2023 13:40:46 Father Hypertensive disorder [email or web address] Not available 07/2022 10:08:25 Father Heart disease [email or web address] Not available 07/2022 10:08:34 Mother Malignant tumor of breast [email or web address] Not available 02/28 08:20:09 Medical History Condition Response Anxiety Disorder Y Diabetes Y Autoimmune disease Y Obesity Y None Y Other Y Bleeding Disorder Y Congestive Heart Failure (CHF) Y Back Problems Y Thyroid Problems Y Asthma Y GI Problems Y Depression Y Hypothyroidism Y Clotting Disorder Y Anemia Y Reflux/GERD [...] Recorded Time influenza, unspecified formulation 3 completed Madelyn stroud, [place] - [place] & [place] 12/08/2023 10:03:38 Influenza, split virus, trivalent, preservative 6 completed Not Available [facility] 10/24/2022 10:15:40 COVID-19, mRNA, LNP-S, PF, 100 mcg/0.5mL dose or 50 mcg/0.25mL dose 1 completed Not Available [facility] 10/24/2022 10:15:40 COVID-19, mRNA, LNP-S, PF, 100 mcg/0.5mL dose or 50 mcg/0.25mL dose 1 completed Not Available [facility] 10/24/2022 10:15:40 Past Encounters Encounter ID Performer Location Encounter Start Date Encounter Closed Date Diagnosis/Indication Diagnosis SNOMED-CT Code Diagnosis ICD10 Code Diagnosis Note [id number] CHRIS Hammerw n [facility] [address] [facility] [address] [place] [address] 07/25/2022 08:17:25 07/25/2022 10:58:49 History of deep vein thrombosis 982248827 Z86.[address] Garcia Q 6 months and will get statement from Dr. clarke regarding perioperat michael use of anticoagul ation given her history of DVT on 2 occasions in the past. Heartburn 69979201 R12 Hiatal her herman with gastroesophageal reflux 906642947 K21.9 Type 2 long betes mellitus without complication 990741577 E11.9 Essential hypertension 54676325 I10 Obesity 525567233 E66.9 The patient will be scheduled for the following. Initial intake lab work, cardiac clearance, and EGD was done June 2021.We discussed concerns of worsening gastroesop hageal reflux status post sleeve gastrectom y / SACHA. patient does not wish to entertain Pauline-en-Y gastric bypass she wishes to have single anastomosi s duodenal ileostomy with a sleeve and hiatal hernia repair. intractabl e reflux was discussed with patient. Patient is aware of this risk and wishes to proceed with SACHA/HHRPa tient will be educated by the surgical weight loss team regarding if any medical managed weight loss will be required and they will follow this according to their recommenda tions.[email or web address] ent will follow-up in office after all testing has been completed [id number] Ankur Snyder DO [facility] [address] [place] [address] [address] [place] [address] 10/16/2022 08:11:33 10/16/2022 13:28:54 Morbid obesity 404928084 E66.01 Pre-surger y evaluation 995166397 Z01.818 Postoperative pain 72851 9007 G89.18 patient will continue daily omeprazole postoperat ively x6 months Essential hypertension 76584732 I10 Type 2 long betes mellitus without complication 644038462 E11.9 [id number] Lamont Alaniz, DNP, MOUNTAIN SERVICES MANAGER, BUFFING WHEEL PRESSER-C [facility] [address] [place] [address] [address] [place] [address] 10/29/2022 08:31:56 10/29/2022 09:46:46 History of bariatric surgical procedure 776180839 Z98.84 Advised qid intake 50% protein 1085-9345 calories/d y less than 100 carbs/dy Patient is to have bariatric vitamin lab panel. Patient was reassured on today's visit. Dialogue content in great detail regarding the benefits of proper diet as well as regular and routine exercise. In regards to exercise, we discussed reaching target heart rate for least 20 minutes 3 times a week. We also highlighte d the importance of staying well hydrated. Proper handwashin g was also encouraged . Patient was advised to keep in close contact with their primary care provider and/or any specialty provider (s). We will contact patient with any deficienci es. Acquired hypothyroidism 641375014 E03.9 Dyslipidemia 526606613 E 78.5 Essential hypertension 63727112 I10 Hypothyroidism 71532967 E03.9 Morbid obesity 932387507 E66.01 Type 2 long betes mellitus without complication 161861429 E11.9 Intentiona l weight loss 845602867 R63.8 [id number] Lamont Alaniz, [place], MOUNTAIN SERVICES MANAGER, BUFFING WHEEL PRESSER-C [facility] [id number] [facility] [address] [place] [address] 11/22/2022 08:06:12 11/22/2022 09:07:20 Acquired hypothyroidism 747886876 E03.9 Dyslipidemia 778525870 E 78.5 Essential hypertension 91801729 I10 Morbid obesity 632506088 E66.01 Type 2 long betes mellitus without complication 190186224 E11.9 Intentiona l weight loss 125846658 R63.8 History of bariatric surgical procedure 634932438 Z98.84 Advised qid intake 50% protein 6744-4094 calories/d y less than 100 carbs/dy Patient is to have bariatric vitamin lab panel. Patient was reassured on today's visit. Dialogue content in great detail regarding the benefits of proper diet as well as regular and routine exercise. In regards to exercise, we discussed reaching target heart rate for least 20 minutes 3 times a week. We also highlighte d the importance of staying well hydrated. Proper handwashin g was also encouraged . Patient was advised to keep in close contact with their primary care provider and/or any specialty provider (s). We will contact patient with any deficienci es. Patient will see dietitian today History of gastrectomy 266666459 Z90.3 Patient is status post bariatric surgery and at increased risk for vitamin deficienci es and malnutriti on. Bariatric vitamin panel ordered today. Patient will be contacted to correct any vitamin deficienci es. Acid reflux 297035936 K2 1.9 Vomiting 577997900 R11.1 0 Encouraged patient to slow feeding and to avoid overeating at this time. [id number] Lamont Alaniz, [place], MOUNTAIN SERVICES MANAGER, BUFFING WHEEL PRESSER-C [facility] [address] [place] [address] 01/20/2023 09:11:46 01/20/2023 11:10:27 History of bariatric surgical procedure 450127014 Z98.84 Advised qid intake 50% protein 7970-3147 calories/d y less than 100 carbs/dy Patient is to have bariatric vitamin lab panel. Patient was reassured on today's visit. Dialogue content in great detail regarding the benefits of proper diet as well as regular and routine exercise. In regards to exercise, we discussed reaching target heart rate for least 20 minutes 3 times a week. We also highlighte d the importance of staying well hydrated. Proper handwashin g was also encouraged . Patient was advised to keep in close contact with their primary care provider and/or any specialty provider (s). We will contact patient with any deficienci es. Patient will not see dietitian today History of gastrectomy 283429620 Z90.3 Patient is status post bariatric surgery and at increased risk for vitamin deficienci es and malnutriti on. Bariatric vitamin panel ordered today. Patient will be contacted to correct any vitamin deficienci es. Acquired hypothyroidism 767549972 E03.9 Dyslipidemia 128960360 E 78.5 Essential hypertension 62964477 I10 Intentiona l weight loss 887933185 R63.8 Morbid obesity 298721939 E66.01 Type 2 long betes mellitus without complication 506759125 E11.9 Vomiting 505140622 R11.1 0 Encouraged patient to slow feeding and to avoid overeating at this time. Nausea 535648884 R11.0 [id number] Lamont Alaniz, DNP, MOUNTAIN SERVICES MANAGER, BUFFING WHEEL PRESSER-C [facility] Adv S[facility] [address] [facility] [address] [place] [address] 05/19/2023 11:11:11 05/19/2023 12:00:42 Intentional weight loss 022399229 R63.8 Dyslipidemia 199311479 E 78.5 Essential hypertension 77607806 I10 Factor V L eiden mutation 941705861 D68.51 Fibromyalgia 255181157 M 79.7 Hypothyroidism 93877544 E03.9 Irritable bowel syndrome 41154904 K58.9 Mild inter mittent asthma 712387962 J45.20 Type 2 long betes mellitus without complication 442355671 E11.9 Obesity 024782415 E66.9 Nausea 427633251 R11.0 Vomiting 594387325 R11.1 0 Encouraged patient to slow feeding and to avoid overeating at this time. Will proceed with upper GI as well as EGD. History of bariatric surgical procedure 241430005 Z98.84 Advised qid intake 50% protein 0079-1048 calories/d y less than 100 carbs/dy Patient is to have bariatric vitamin lab panel. Patient was reassured on today's visit. Dialogue content in great detail regarding the benefits of proper diet as well as regular and routine exercise. In regards to exercise, we discussed reaching target heart rate for least 20 minutes 3 times a week. We also highlighte d the importance of staying well hydrated. Proper handwashin g was also encouraged . Patient was advised to keep in close contact with their primary care provider and/or any specialty provider (s). We will contact patient with any deficienci es. Patient will see dietitian today History of gastrectomy 292857103 Z90.3 Patient is status post bariatric surgery and at increased risk for vitamin deficienci es and malnutriti on. Bariatric vitamin panel ordered today. Patient will be contacted to correct any vitamin deficienci es. [id number] Jae Soto MD [facility] [address] [place] [address] [address] [place], [place] [address] 07/30/2023 10:28:08 07/30/2023 13:01:00 Iron profile outside reference range 3498598289 9101 R79.0 We will check for hemochroma tosis to rule out based on iron saturation being above 45 percent Liver func tion tests outside reference range 771789977 R94.5 Plan for labs above to r/o viral hepatitis, autoimmune or metabolic liver disease. Plan for liver US to evaluate liver parenchyma . patient to call and make a follow-up appointmen t after ultrasound . Anemia 736485318 D64.9 Concern for anemia. Will do further work up to rule out deficienci es. Will consider stool sample for occult blood. Labs ordered. If any deficienci es will need to address. Screening for disorder 338992643 Z13.9 Patient offered age appropriat e screening for acute Hepatitis, as well as antibodies to determine immunity to Hepatitis A and B in order to guide recommenda tion for vaccinatio ns. Hypertensive disorder 38 800674 I10 Patient with current diagnosis of hypertensi on. Encouraged healthy lifestyle, including sodium intake reduction, avoidance of caffeine/n icotine, increased heart healthy activity. Encourage patient to continue follow up with PCP for disease management . 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 Will do further work up to rule out deficienci es. Will consider stool sample for occult blood. Labs ordered. If any deficienci es will need to address. Screening for disorder 209516193 Z13.9 Recommend Hepatitis A and B vaccine. Hypertensive disorder 38 597566 I10 Patient with current diagnosis of hypertensi on. Encouraged healthy lifestyle, including sodium intake reduction, avoidance of caffeine/n icotine, increased heart healthy activity. Encourage patient to continue follow up with PCP for disease management . 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 Cirrhosis of liver 007 K70.30 K70.31 K74.3 K74.60 Patient with diagnosis of cirrhosis. Likely metabolic in nature. Patient has had weight loss surgery and has lost a significan t amount of weight.Dis cussed the correlatio n between elevated cholestero l/triglyce rides and steatosis, as well as the potential progressio n to fibrosis/c irrhosis and the increased risk of liver cancer.Enc ouraged to follow heart healthy lifestyle, including avoiding saturated fats and trans-fats , eating polyunsatu rated fats in moderation , increased heart healthy activity.W eight reduction encouraged .Mediterra nean and BURGESS diet discussed with the patient, including the impact of uncontroll ed BURGESS resulting in fibrosis of the liver function. Will refer to [facility] for evaluation . [id number] Lamont Alaniz, DNP, MOUNTAIN SERVICES MANAGER, BUFFING WHEEL PRESSER-C [facility] [address] [facility] [address] [place] [address] 09/01/2023 08:47:15 09/01/2023 09:26:10 History of bariatric surgical procedure 242761952 Z98.84 Advised qid intake 50% protein 5688-2388 calories/d y less than 100 carbs/dy Patient is to have bariatric vitamin lab panel. Patient was reassured on today's visit. Dialogue content in great detail regarding the benefits of proper diet as well as regular and routine exercise. In regards to exercise, we discussed reaching target heart rate for least 20 minutes 3 times a week. We also highlighte d the importance of staying well hydrated. Proper handwashin g was also encouraged . Patient was advised to keep in close contact with their primary care provider and/or any specialty provider (s). We will contact patient with any deficienci es. Patient will see dietitian today via phone call Intentiona l weight loss 597476522 R63.8 History of gastrectomy 361935805 Z90.3 Advised qid intake 50% protein 3174-4099 calories/d y less than 100 carbs/dy Long discussion today of [employer] results including PBF(percen t body fat) SMM (skeletal muscle mass) Visceral fat level level BMR Segmental Fat Analysis and Segmental Lean Analysis. Encouraged pt to take minimal calories as per BMR and to anticipate changes in SMM and PBF values not just total weight. Follow-up with [facility] in 3mth suggested Patient is status post bariatric surgery and at increased risk for vitamin deficienci es and malnutriti on. Bariatric vitamin panel ordered today. Patient will be contacted to correct any vitamin deficienci es. Acquired hypothyroidism 269544857 E03.9 Anemia 654800765 D64.9 Constipation 70192468 K5 9.00 Dyslipidemia 223533989 E 78.5 Essential hypertension 53372178 I10 Fibromyalgia 860581366 M 79.7 Hypertensive disorder 38 800489 I10 Iron defic iency anemia 87607180 D50.9 Liver func tion tests outside reference range 180796547 R94.5 Keep all upcoming specialty appt Mild inter mittent asthma 214205125 J45.20 Type 2 long betes mellitus without complication 999018708 E11.9 Vomiting 706551059 R11.1 0 Encouraged patient to slow feeding and to avoid overeating at this time. Will proceed with upper GI as well as EGD. [id number] Cindy Morales PA-C [facility] [address] [place] [address] 09/01/2023 11:04:41 09/01/2023 11:53:55 Hereditary hemochromatosis 03310260 E83.110 Patient labs via [facility] with white blood cell count 3.92 red blood cell count 3.37 hemoglobin 12.0 hematocrit 35.6 MCV 105.6 platelet count 490798 no differenti al performed. CMP with no evidence of chronic kidney disease low albumin 2.6 low calcium 8.1 elevated total bilirubin 1.5 AST significan tly elevated 101 ALT 32 alkaline phosphatas e 160 normal iron saturation and serum iron ferritin slightly elevated 164. Hereditary hemochroma tosis panel positive for heterozygo us C282Y mutation.D iscussed with patient due to significan t cirrhosis would recommend therapeuti c phlebotomy with a ferritin goal of under 50. will follow-up in [facility] t in ferritin at next visit following therapeuti c phlebotomi es. Factor V L eiden mutation 837134753 D68.51 will perform medical review and follow-up History of deep vein thrombosis 997156839 Z86.718 will review medical history and follow-up [id number] Lamont Alaniz, DNP, MOUNTAIN SERVICES MANAGER, BUFFING WHEEL PRESSER-C [facility]ariatric s and Adv Surg [address] [facility] [address] [place] [address] 12/08/2023 09:56:00 12/08/2023 13:42:41 Acquired hypothyroidism 934619074 E03.9 Dyslipidemia 774122931 E 78.5 Essential hypertension 76023004 I10 Factor V L eiden mutation 775017159 D68.51 Fibromyalgia 800311406 M 79.7 Hemochromatosis 13798990 6 E83.119 Hypothyroidism 48413411 E03.9 Intentiona l weight loss 829304661 R63.8 Iron defic iency anemia 34293138 D50.9 Mild inter mittent asthma 949454664 J45.20 Type 2 long betes mellitus without complication 678501814 E11.9 History of bariatric surgical procedure 228906000 Z98.84 Advised qid intake 50% protein 0782-2353 calories/d y less than 100 carbs/dy Patient is to have bariatric vitamin lab panel. Patient was reassured on today's visit. Dialogue content in great detail regarding the benefits of proper diet as well as regular and routine exercise. In regards to exercise, we discussed reaching target heart rate for least 20 minutes 3 times a week. We also highlighte d the importance of staying well hydrated. Proper handwashin g was also encouraged . Patient was advised to keep in close contact with their primary care provider and/or any specialty provider (s). We will contact patient with any deficienci es. Patient will see dietitian today via phone call History of gastrectomy 809981516 Z90.3 Advised qid intake 50% protein 2239-4673 calories/d y less than 100 carbs/dy Long discussion today of [employer] results including PBF(percen t body fat) SMM (skeletal muscle mass) Visceral fat level level BMR Segmental Fat Analysis and Segmental Lean Analysis. Encouraged pt to take minimal calories as per BMR and to anticipate changes in SMM and PBF values not just total weight. Follow-up with Repeat VANIA in 3mth suggested Patient is status post bariatric surgery and at increased risk for vitamin deficienci es and malnutriti on. Bariatric vitamin panel ordered today. Patient will be contacted to correct any vitamin deficienci es. Cirrhosis of liver 007 K70.30 K70.31 K74.3 K74.60 [id number] Cindy Morales PA-C [facility] [address] [place] [address] 12/17/2023 09:58:07 12/17/2023 10:20:04 Hereditary hemochromatosis 45581994 E83.110 Patient labs via Gastro[facility] rology with white blood cell count 3.92 red blood cell count 3.37 hemoglobin 12.0 hematocrit 35.6 MCV 105.6 platelet count 155903 no differenti al performed. CMP with no evidence of chronic kidney disease low albumin 2.6 low calcium 8.1 elevated total bilirubin 1.5 AST significan tly elevated 101 ALT 32 alkaline phosphatas e 160 normal iron saturation and serum iron ferritin slightly elevated 164. Hereditary hemochroma tosis panel positive for heterozygo us C282Y mutation.D iscussed with patient due to significan t cirrhosis would recommend therapeuti c phlebotomy with a ferritin goal of under 50. will follow-up in improvemen t in ferritin at next visit following therapeuti c phlebotomi es. Patient has completed multiple therapeuti c phlebotomi es most recently labs on December 17, 2023 with hemoglobin 11.6 hematocrit 34.8. Discussed with patient holding on therapeuti c phlebotomi es for 2-3 months. Will follow up for goal ferritin less than 50. Factor V L eiden mutation 633272401 D68.51 will perform medical review and follow-up History of deep vein thrombosis 180902224 Z86.718 will review medical history and follow-up [id number] Jae Soto MD [address] [place], [place] [address] 12/11/2023 08:57:24 12/11/2023 10:00:28 Hereditary hemochromatosis 92866918 E83.110 she is getting periodic phlebotomy high-risk for hepatoma with cirrhosis and hemochroma tosis she is getting follow-up CT and alpha fetoprotei n in January with Medical hepatologi st at History of bariatric surgical procedure 389230966 Z98.84 continue high-dose vitamin a and E replacemen t after discussion with PCP and Dr. Snyder as she is deficiency vitamin a and E last year the blood test AST is mildly elevated Cirrhosis of liver 10680 007 K74.60 secondary alcoholic liver disease KPA is 12.5 she has no varices last year and endoscopy may need follow-up endoscopy in a year or this year to check any recurrence of varices if KPA goes high Ascites 224063737 R18.8 she is on diuretic therapy will monitor CMP Alcoholic cirrhosis 4200 38460 K70.31 she would quit drinking alcohol lost weight no deteriorat ion except need to monitor for hepatoma every 6 months with alpha fetoprotei n Long-term drug therapy 865646945 Z79.899 on water pills need to monitor CMP History of adenomatous polyp of colon 283395852 Z86.010 last year there was 1 less than 1 cm adenomatou s polyp need follow-up colonoscop y in 5 years from the index case will follow-up in 6 months all this counseling given to the patient has few diverticul a advise fiber supplement [id number] [address], LD [facility] [address] [place] [address] 12/12/2023 09:54:36 12/12/2023 10:31:19 Morbid obesity 616814599 E66.01 BMI 24.9 [id number] Cindy Morales PA-C [facility] y-[address] [place] [address] 04/01/2024 09:45:30 04/01/2024 10:13:50 Factor V Leiden mutation 258263997 D68.51 will perform medical review and follow-up Hereditary hemochromatosis 55309674 E83.110 Patient labs via Gastro[facility] rology with white blood cell count 3.92 red blood cell count 3.37 hemoglobin 12.0 hematocrit 35.6 MCV 105.6 platelet count 363474 no differenti al performed. CMP with no evidence of chronic kidney disease low albumin 2.6 low calcium 8.1 elevated total bilirubin 1.5 AST significan tly elevated 101 ALT 32 alkaline phosphatas e 160 normal iron saturation and serum iron ferritin slightly elevated 164. Hereditary hemochroma tosis panel positive for heterozygo us C282Y mutation.D iscussed with patient due to significan t cirrhosis would recommend therapeuti c phlebotomy with a ferritin goal of under 50. will follow-up in improvemen t in ferritin at next visit following therapeuti c phlebotomi es. Patient has completed multiple therapeuti c phlebotomi es most recently labs on December 17, 2023 with hemoglobin 11.6 hematocrit 34.8. Discussed with patient holding on therapeuti c phlebotomi es for 2-3 months. Will follow up for goal ferritin less than 50. Patient presents to clinic on April 01, 2024. Patient denies any new acute complaints . Patient is up-to-date on mammogram and colonoscop y. Discussed repeating labs to evaluate if therapeuti c phlebotomi es are needed. History of deep vein thrombosis 745072455 Z86.718 will review medical history and follow-up [id number] JOSE [facility] [address] [place] [address] [address] [place] [address] 06/10/2024 07:57:39 06/10/2024 08:49:44 Hereditary hemochromatosis 19175186 E83.110 recommend to continue with hematology . History of bariatric surgical procedure 754377476 Z98.84 Recommend to continue follow-up with bariatric surgeon. Cirrhosis of liver 007 K74.60 Patient is transferri [facility] to as she is following with the hepatologi st there. Advised patient that she needed hepatoma screening every 6 months and that she needed repeat lab work every 3 months and if they were not ordering this to please come back. Patient verbalizes understand ing. Ascites 761266852 R18.8 Resolved at this time. History of adenomatous polyp of colon 719247924 Z86.010 Recommend repeat colonoscop y in 5 years. [id number] Cindy Morales PA-C [facility] y-[address] [place] [address] 09/16/2024 08:23:31 09/16/2024 09:03:18 Hereditary hemochromatosis 47233730 E83.110 Patient labs via Gastroente rology with white blood cell count 3.92 red blood cell count 3.37 hemoglobin 12.0 hematocrit 35.6 MCV 105.6 platelet count 911814 no differenti al performed. CMP with no evidence of chronic kidney disease low albumin 2.6 low calcium 8.1 elevated total bilirubin 1.5 AST significan tly elevated 101 ALT 32 alkaline phosphatas e 160 normal iron saturation and serum iron ferritin slightly elevated 164. Hereditary hemochroma tosis panel positive for heterozygo us C282Y mutation.D iscussed with patient due to significan t cirrhosis would recommend therapeuti c phlebotomy with a ferritin goal of under 50. will follow-up in improvemen t in ferritin at next visit following therapeuti c phlebotomi es. Patient has completed multiple therapeuti c phlebotomi es most recently labs on December 17, 2023 with hemoglobin 11.6 hematocrit 34.8. Discussed with patient holding on therapeuti c phlebotomi es for 2-3 months. Will follow up for goal ferritin less than 50. Patient presents to clinic on April 01, 2024. Patient denies any new acute complaints . Patient is up-to-date on mammogram and colonoscop y. Discussed repeating labs to evaluate if therapeuti c phlebotomi es are needed. History of deep vein thrombosis 491046136 Z86.718 will review medical history and follow-up Factor 5 Leiden mutation not detected.P melva presents to the clinic on September 16, 2024. Discussed hypercoagu lable panel with patient as she has never had a workup. Will follow-up with further recommenda tions. [id number] Cindy Morales PA-C [facility] [address] [place] [address] 02/28/2025 08:19:47 02/28/2025 08:43:38 History of deep vein thrombosis 927113957 Z86.718 will review medical history and follow-up [...] labs. Carrier of hemochromatosis HFE gene mutation 466745160 Z14.8 Patient labs via Gastroente rology with white blood cell count 3.92 red blood cell count 3.37 hemoglobin 12.0 hematocrit 35.6 MCV 105.6 platelet count 990592 no differenti al performed. CMP with no [...] LastModified Time None Recorded Advance Directives Directive N: Payers Insurance Date Sequence Insurance Name Policy Number Policy Jackson Covered Member ID Jackson Member ID Guarantor Name 08/03/2024 1 [place] [id number] Melissa Morrison [id number] Melissa Morrison 08/03/2024 1 [facility] [place] [id number] Melissa Morrison [id number] Melissa Morrison 02/26/2025 1 [place]: [place] [facility] [place] [employer] [place] (MEDICARE REPLACEMENT HMO) [id number] Melissa Morrison [id number] Melissa Morrison Notes Date Note Type Note Provider Name and Address Organization Details Recorded Time 12/17/2023 text/html 58-year-old chikis navarro presents to the clinic for evaluation of hereditary hemochromatosis.Blanka goode has a past medical history of fatty liver disease, recurrent DVTs, factor 5 Leiden, But not currently on any anticoagulation, hypertension, hyperthyroidism, Sjogren's. Patient labs via Gastroenterology with white blood cell count 3.92 red blood cell count 3.37 hemoglobin 12.0 hematocrit 35.6 MCV 105.6 platelet count 623777 no differential performed. CMP with no evidence of chronic kidney disease low albumin 2.6 low calcium 8.1 elevated total bilirubin 1.5 AST significantly elevated 101 ALT 32 alkaline phosphatase 160 normal iron saturation and serum iron ferritin slightly elevated 164. Hereditary hemochromatosis panel positive for heterozygous C282Y mutation.Discussed with patient due to significant cirrhosis would recommend therapeutic phlebotomy with a ferritin goal of under 50. will follow-up in improvement in ferritin at next visit following therapeutic phlebotomies. Patient has completed multiple therapeutic phlebotomies most recently labs on December 17, 2023 with hemoglobin 11.6 hematocrit 34.8. Discussed with patient holding on therapeutic phlebotomies for 2-3 months. Will follow up for goal ferritin less than 50. Cindy Morales PA-C [address], [place], [address], [place] - [place] - [place] 12/17/2023 10:24:49 04/01/2024 text/html 58-year-old chikis navarro presents to the clinic for evaluation of hereditary hemochromatosis.Blanka goode has a past medical history of fatty liver disease, recurrent DVTs, factor 5 Leiden, But not currently on any anticoagulation, hypertension, hyperthyroidism, Sjogren's. Patient labs via Gastroenterology with white blood cell count 3.92 red blood cell count 3.37 hemoglobin 12.0 hematocrit 35.6 MCV 105.6 platelet count 540305 no differential performed. CMP with no evidence of chronic kidney disease low albumin 2.6 low calcium 8.1 elevated total bilirubin 1.5 AST significantly elevated 101 ALT 32 alkaline phosphatase 160 normal iron saturation and serum iron ferritin slightly elevated 164. Hereditary hemochromatosis panel positive for heterozygous C282Y mutation.Discussed with patient due to significant cirrhosis would recommend therapeutic phlebotomy with a ferritin goal of under 50. will follow-up in improvement in ferritin at next visit following therapeutic phlebotomies. Patient has completed multiple therapeutic phlebotomies most recently labs on December 17, 2023 with hemoglobin 11.6 hematocrit 34.8. Discussed with patient holding on therapeutic phlebotomies for 2-3 months. Will follow up for goal ferritin less than 50. Patient presents to clinic on April 01, 2024. Patient denies any new acute complaints. Patient is up-to-date on mammogram and colonoscopy. Discussed repeating labs to evaluate if therapeutic phlebotomies are needed. Cindy Morales PA-C [address] [facility], [place], [address], [facility] - [place] 04/01/2024 10:13:13 06/10/2024 text/html Pleasant 59-year -old female patient of Dr. Fox with past medical history significant for hepatic steatosis, recurrent DVT, factor 5 laden, anxiety, arrhythmia, depression, fibromyalgia, hypertension, hypothyroidism, Sjogren syndrome, who presents today for follow up. States that her LFTs have improved. Saw Pressurization Mechanic Dr. Abdirizak Umanzor with regarding her liver. Is not happy with her tumor marker number. He ordered an MRI of her abdomen-scheduled 07/06/2024. MELD score improved to 8. Feeling better. No other concerns or complaints at this time. No known family history of colon or GI cancers.Denies alcohol, tobacco, illicit drug use including marijuana. PREVIOUS INVESTIGATIONS REVIEWED:04/01/2024Fer ritin 14Iron 86TIBC 362Iron saturation 24%BUN 18 highCreatinine 0.8Total bilirubin 0.7AST 54 HighALT 39 HighAlk phos 155 HighWBC 3.88 lowRBC 3.76 lowHemoglobin 12.8Hematocrit 37.7MCV 100.3 highPlatelets 199 12/08/2023Serum copper 46-lowB1 117.9Vitamin-D 65.2Folic acid 4.5Hemoglobin A1c 4.6 lowCholesterol 107Triglycerides 32BUN 15Creatinine 0.77Total bilirubin 0.6AST 54 highALT 36 HighAlk phos 134 HighTSH 1.17WBC 3.1 lowHemoglobin 11.5MCV 102 HighPlatelets 196Iron 79TIBC 233 highIron saturation 34Ferritin 53 08/12/2023Hereditary hemochromatosisC.845G> A (p. [id number]) detected, heterozygous 07/30/2023NASHFib F4A1A WNLNegatve Hepatitis acuteNeeds A and B vaccineTTG WNLHemochromotosis-c.8 45G>A (p.Rsr318Myu) - Detected, heterozygous 07/21/2023WBC 5.0-normalHemoglobin 12.5-normalNCV 109.6-elevatedPlatelet count 313-egaocr7407/22/2023WB C 4.7-lowHemoglobin 12.6-normalMCV 112.6-highPlatelets 299-btgtvc4307/28/2023U N low at 4Total bilirubin elevated at 1.5AST elevated at 100ALT normal at 35Alk phos elevated at 194 US Elastography-cirrhosis -Measurements suggestive of moderate to severe fibrosis, suggestive of cACLD but need further testing for confirmation. Ultrasound abdomenCoarsening of hepatic echotexture and lobular contour consistent with cirrhosis. Small to moderate ascites and small left pleural effusion. Gallbladder surgically resected. Common bile duct slightly prominent measuring 8 mm which is of questionable significance as it may represent post cholecystectomy change Cherie Pathak, JOSE [address] [place] [address], [address], [place], [address], [place] - [place] - [place] 06/10/2024 10:09:05 09/16/2024 text/html 59-year-old fema melanie presents to the clinic for evaluation of hereditary hemochromatosis.Patien rupa has a past medical history of fatty liver disease, recurrent DVTs, , But not currently on any anticoagulation, hypertension, hyperthyroidism, Sjogren's. Patient labs via Gastroenterology with white blood cell count 3.92 red blood cell count 3.37 hemoglobin 12.0 hematocrit 35.6 MCV 105.6 platelet count 615446 no differential performed. CMP with no evidence of chronic kidney disease low albumin 2.6 low calcium 8.1 elevated total bilirubin 1.5 AST significantly elevated 101 ALT 32 alkaline phosphatase 160 normal iron saturation and serum iron ferritin slightly elevated 164. Hereditary hemochromatosis panel positive for heterozygous C282Y mutation.Discussed with patient due to significant cirrhosis would recommend therapeutic phlebotomy with a ferritin goal of under 50. will follow-up in improvement in ferritin at next visit following therapeutic phlebotomies. Patient has completed multiple therapeutic phlebotomies most recently labs on December 17, 2023 with hemoglobin 11.6 hematocrit 34.8. Discussed with patient holding on therapeutic phlebotomies for 2-3 months. Will follow up for goal ferritin less than 50. Patient presents to clinic on April 01, 2024. Patient denies any new acute complaints. Patient is up-to-date on mammogram and colonoscopy. Discussed repeating labs to evaluate if therapeutic phlebotomies are needed. Factor 5 Leiden mutation not detected.Patient presents to the clinic on September 16, 2024. Discussed hypercoagulable panel with patient as she has never had a workup. Will follow-up with further recommendations. Cindy Morales PA-C [address] [facility], [place], [address], [place] - [place] 09/16/2024 09:03:27 02/28/2025 text/html 59-year-old chikis navarro returns for evaluation of DVT, and carrier status for hemochromatosis.Blanka goode has a past medical history of fatty liver disease, recurrent DVTs, , But not currently on any anticoagulation, hypertension, hyperthyroidism, Sjogren's. Patient labs via Gastroenterology with white blood cell count 3.92 red blood cell count 3.37 hemoglobin 12.0 hematocrit 35.6 MCV 105.6 platelet count 792123 no differential performed. CMP with no evidence [...] anticoagulation will repeat labs. Cindy Morales PA-C [address], [place], [address], [place] - [place] 02/28/2025 08:45:21 OBGyn Episode No OBEpisode recorded.
--- OUTSIDE RECORDS SUMMARY | 2025-04-25 10:52 | XMS_ITS | Encounter Summary ---
Author Organization Healthcare Address [address] [place] [address] Care Team Providers Care Educational Program Assistant Name Role Phone Cherie Pathak PRISON KEEPER Primary Care Provider [phone] Temo Fox MD Primary Care Provider Bree vailable Cherie Pathak PRISON KEEPER Unavailable [phone] Encounter Details Date Type Department Care Team (Late Contact Info) Description 08/12/2023 Orders Only External Location [address] [place] [address] Cherie Pathak, PRISON KEEPER [facility] [address] [place] [address] Social History Tobacco Use Types Packs/Day Years [...] AM EST Office Visit [facility] [place] [address] [facility], [address] [place] [address] Abdirizak Umanzor MD [address] [facility] [address] [place] [address] documented as of this encounter Procedures Procedure Name Priority Date/Time Associated Diagnosis Comments US ABDOMEN OUTSIDE IMAGES 08/12/2023 8:42 AM EDT documented in this encounter Results * US ABDOMEN OUTSIDE IMAGES (08/12/2023 8:42 AM EDT) Anatomical Region Laterality Modality Ultrasound 08/12/2023 8:42 AM EDT us Cherie Pathak APRN IMG US PROCEDURES Final R esult documented in this encounter Visit Diagnoses Not on filedocumented in this encounter Additional Health Concerns Assessment Noted Time A fall risk assessment has been complete d for the patient 10/03/2022 9:38 AM EST documented as of this encounter Care Teams Educational Program Assistant Relationship Specialty Start Date End Date Cherie Pathak APRN [address] [place] [address] [place] [address] PCP - General 02/23/21 09/28/23 Temo Fox MD [address] [place] [address] [place] [address] PCP - General Family Medicine 09/29/23 Cherie Pathak APRN [address] [place] [address] [place] [address] Referring Physician Gastroenterology 09/29/23 documented as of this encounter
--- OUTSIDE RECORDS SUMMARY | 2025-04-25 10:52 | XMS_ITS | Encounter Summary ---
Author Organization Healthcare Address [address] [place] [address] Care Team Providers Care Farm Mechanic Apprentice Name Role Phone Cherie Pathak AMALGAMATOR Primary Care Provider [phone] Temo Fox MD Primary Care Provider Bree vailable Cherie Pathak AMALGAMATOR Unavailable [phone] Encounter Details Date Type Department Care Team (Late Contact Info) Description 05/28/2022 Orders Only External Location [address] [place] [address] Jae Soto MD [address] [place] [address] [address] [place], [place] Social History Tobacco Use Types Packs/Day Years [...] AM EST Office Visit [facility] [place] [address] [facility], [address] [place] [address] Abdirizak Umanzor MD [address] [facility] [address] [place] [address] documented as of this encounter Procedures Procedure Name Priority Date/Time Associated Diagnosis Comments US ABDOMEN OUTSIDE IMAGES 05/28/2022 11:18 AM EDT documented in this encounter Results * US ABDOMEN OUTSIDE IMAGES (05/28/2022 11:18 AM EDT) Anatomical Region Laterality Modality Ultrasound 05/28/2022 11:1 8 AM EDT us Jae Soto MD IMG US PROCEDURES Final Result documented in this encounter Visit Diagnoses Not on filedocumented in this encounter Care Teams Farm Mechanic Apprentice Relationship Specialty Start Date End Date Cherie Pathak APRN [address] [place] [address] [place] [address] PCP - General 02/23/21 09/28/23 Temo Fox MD [address] [place] [address] [place] [address] PCP - General Family Medicine 09/29/23 Cherie Pathak APRN [address] [place] [address] [place] [address] Referring Physician Gastroenterology 09/29/23 documented as of this encounter
--- OUTSIDE RECORDS SUMMARY | 2025-04-25 10:52 | XMS_ITS | Encounter Summary ---
Author Organization Healthcare Address [address] [place] [address] Care Team Providers Care Biztalk Administrator Name Role Phone Cherie Pathak VETERINARIAN HELPER Primary Care Provider [phone] Temo Fox MD Primary Care Provider Bree vailable Cherie Pathak VETERINARIAN HELPER Unavailable [phone] Encounter Details Date Type Department Care Team (Late Contact Info) Description 07/24/2023 Orders Only External Location [address] [place] [address] Provider, External Social History Tobacco Use Types Packs/Day Years [...] AM EST Office Visit [facility] [place] [address] [facility], [address] [place] [id number] Abdirizak Umanzor MD [address] [facility] [address] [place] [id number] documented as of this encounter Procedures Procedure Name Priority Date/Time Associated Diagnosis Comments US OUTSIDE IMAGES 07/24/2023 7:58 AM EDT documented in this encounter Results * US OUTSIDE IMAGES (07/24/2023 7:58 AM EDT) Anatomical Region Laterality Modality Ultrasound 07/24/2023 7:58 AM EDT us External Provider IMG US PROCEDURES Final Result documented in this encounter Visit Diagnoses Not on filedocumented in this encounter Additional Health Concerns Assessment Noted Time A fall risk assessment has been complete d for the patient 10/03/2022 9:38 AM EST documented as of this encounter Care Teams Biztalk Administrator Relationship Specialty Start Date End Date Cherie Pathak APRN [address] [place] [address] [place] [address] PCP - General 02/23/21 09/28/23 Temo Fox MD [address] [place] [address] [place] [address] PCP - General Family Medicine 09/29/23 Cherie Pathak APRN [address] [place] [address] [place] [address] Referring Physician Gastroenterology 09/29/23 documented as of this encounter
--- OUTSIDE RECORDS SUMMARY | 2025-04-25 10:52 | XMS_ITS | Encounter Summary ---
Author Organization Healthcare Address [address] [place] [address] Care Team Providers Care Human Relations Manager Name Role Phone Cherie Pathak SUPPLY CATALOGUER Primary Care Provider [phone] Temo Fox MD Primary Care Provider Bree vailable Cherie Pathak SUPPLY CATALOGUER Unavailable [phone] Encounter Details Date Type Department Care Team (Late Contact Info) Description 01/14/2023 Orders Only External Location [address] [place] [address] Raul Ramon, DO [address] [place] [address] Social History Tobacco Use Types Packs/Day Years [...] AM EST Office Visit [facility] [place] [address] [facility] [place] [phone] Abdirizak Umanzor MD [address] [place] [phone] documented as of this encounter Procedures Procedure Name Priority Date/Time Associated Diagnosis Comments CT [facility] OUTSIDE IMAGES 01/14/2023 3:07 PM EDT documented in this encounter Results * CT [facility] OUTSIDE IMAGES (01/14/2023 3:07 PM EDT) Anatomical Region Laterality Modality Computed Tomogra phy 01/14/2023 3:07 PM EDT Raul Ramon DO IMG CT PROCEDURES Final Resul t documented in this encounter Visit Diagnoses Not on filedocumented in this encounter Additional Health Concerns Assessment Noted Time A fall risk assessment has been complete d for the patient 10/03/2022 9:38 AM EST documented as of this encounter Care Teams Human Relations Manager Relationship Specialty Start Date End Date Cherie Pathak APRN [address] [place] [address] [place] [address] PCP - General 02/23/21 09/28/23 Temo Fxo MD [address] [place] [address] [place] [address] PCP - General Family Medicine 09/29/23 Cherie Pathak APRN [address] [place] [address] [place] [address] Referring Physician Gastroenterology 09/29/23 documented as of this encounter
== END 2025-04-22 23:59 | disposition home or self-care (01) ==
LOC: LAB.DROPOF 04-25 10:49
PROVIDERS: PCP Nurse Practitioner Family; Visit Provider Nurse Practitioner Family
DX: Z11.4 Encounter for screening for human immunodeficiency virus [HIV] (principal); Z11.59 Encounter for screening for other viral diseases; E03.9 Hypothyroidism, unspecified
CPT/HCPCS: 84436; 84443; 86803; 87340; 87389